=== PATIENT | female | born 1995 | race Caucasian/White ===

== ENCOUNTER 2017-07-24 06:46 | Emergency (ER) | payer SELFPAY ==
[2017-07-24] MEDS ORDERED: NA CHLORIDE 0.9% 1,000 ML ONE (07:31)
[2017-07-24 07:53] LABS: Absolute Lymphocytes (CBC) 1.6 K/uL (0.7-4.9); Absolute Monocytes 0.8 K/uL (0.1-1.3); Absolute Neutrophil 11.1 K/uL (1.8-8.0); Basophils % 0.4 % (0-1.3); Eosinophils % 0.2 % (0-4.4); Lymphocytes % 11.8 % (15.3-44.8); MCV 88.3 fL (80-100); MPV 8.2 fL (7.6-11.3); Monocytes % 6.1 % (3.3-12.3); RBC Red Blood Cell Count 4.65 M/uL (3.86-4.86)
[2017-07-24 08:30] LABS: Potassium 3.9 mEq/L (3.6-5.0)
[2017-07-24 08:36] LABS: Bilirubin Direct 0.1 mg/dL (0-0.2); Bilirubin Total 0.6 mg/dL (0.3-1.2); Protein, Total 7.4 g/dL (6.0-8.3)
[2017-07-24 08:38] LABS: Urine Blood NEGATIVE (NEG); Urine Glucose NEGATIVE (NEG); Urine Protein NEGATIVE (NEG); Urine Specific Gravity 1.025 (1.005-1.030)
[2017-07-24 09:13] LABS: Urine Bacteria <20 /HPF (<20); Urine Culture Reflex Order NOT NEEDED; Urine RBC NONE SEEN /HPF (NONE SEEN)
--- NOTE | 2017-07-24 09:21 | RAD REPORT ---
EXAM DESCRIPTION: CT - Stone Protocol - 07/24/2017 9:02 am CLINICAL HISTORY: Right flank pain, history of kidney stones COMPARISON: CT study December 2014 TECHNIQUE: Axial 5 mm thick images were obtained without oral or IV contrast. The [id number] span s the entirety of the system partially obscuring uppermost abdomen and lung bases. All CT scans are performed using dose optimization technique as appropriate and may include automated exposure control or mA/KV adjustment according to patient size. FINDINGS: Moderate hydronephrosis of the right side pelvis and calices is seen into the pelvis. The distal few cm of the right ureter show a more mild dilatation pattern. There is a 2-3 mm stone within the right UVJ as the source for obstruction. No calculi within the mostly contracted urinary bladder . No additional obstructing or nonobstructing calculi on the right. Fullness of the left renal pelvis is present as a baseline. No acute left-sided findings. No suspicious renal masses. Isodense masses and pyelonephritis are not excluded on a stone protocol CT scan. Imaged portions of the liver, spleen and pancreas show no suspicious findings on non-contrast imaging . No gallbladder or biliary tree abnormality identified. No significant adrenal finding. No suspicious bowel findings. No hernia, mass or bulky lymphadenopathy noted. No free air, free fluid or pneumatosis. Uterus and ov sandrita show no suspicious findings No significant bony abnormality. IMPRESSION: Moderate right-sided hydronephrosis secondary to a 2-3 mm calculus within the right UVJ. The stone is too small to obtain accurate attenuation value. Isodense masses and pyelonephritis are not excluded on stone protocol technique.
[2017-07-24] MEDS ORDERED: FENTANYL CITR 100 MCG/2 ML ONE (09:47)
[2017-07-24] MEDS ORDERED: NITROFURAN MACRO 100 MG CAP PO ONE (09:48)
[2017-07-24] MEDS ORDERED: TAMSULOSIN 0.4 MG SR CAP ONE (09:48)
--- NOTE | 2017-07-24 10:32 | EDPHYS ---
Physician Documentation [facility] Name: Melissa Iglesias Age: 22 yrs Sex: Female : 1995 Arrival Date: 07/24/2017 Time: 06:51 Bed 14 Private MD: ED Physician Valentin Medina HPI: 07/24 07:40 This 22 yrs old Female presents to ER via Ambulatory with complaints of Flank snw Pain. 07:40 The patient complains of pain in the right lower quadrant and right upper quadrant. The snw pain radiates to the left low back and left mid back. Onset: The symptoms/episode began/occurred suddenly, yesterday. Modifying factors: The symptoms are alleviated by nothing. Associated signs and symptoms: Pertinent positives: nausea, vomiting. Severity of pain: At its worst the pain was moderate. It is unknown whether or not the patient has had similar symptoms in the past. The patient has not recently seen a physician. 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 - Social history:: Smoking status: Patient uses tobacco products, smokes one-half pack cigarettes per day. - Ebola Screening: : No symptoms or risks identified at this time. ROS: 07:40 Constitutional: Negative for fever, chills, and weight loss, Eyes: Negative for injury, snw pain, redness, and discharge, ENT: Negative for injury, pain, and discharge, Neck: Negative for injury, pain, and swelling, Cardiovascular: Negative for chest pain, palpitations, and edema, Respiratory: Negative for shortness of breath, cough, wheezing, and pleuritic chest pain, Abdomen/GI: Negative for abdominal pain, nausea, vomiting, diarrhea, and constipation, right upper and lower quad tenderness Back: Negative for injury and pain, MS/Extremity: Negative for injury and deformity, Skin: Negative for injury, rash, and discoloration, Neuro: Negative for headache, weakness, numbness, tingling, and seizure. Exam: 07:22 Constitutional: This is a well developed, well nourished patient who is awake, alert, snw and in no acute distress. Head/Face: Normocephalic, atraumatic. Eyes: Pupils equal round and reactive to light, extra-ocular motions intact. Lids and lashes normal. Conjunctiva and sclera are non-icteric and not injected. Cornea within normal limits. Periorbital areas with no swelling, redness, or edema. ENT: Nares patent. No nasal discharge, no septal abnormalities noted. Tympanic membranes are normal and external auditory canals are clear. Oropharynx with no redness, swelling, or masses, exudates, or evidence of obstruction, uvula midline. Mucous membranes moist. Neck: Trachea midline, no thyromegaly or masses palpated, and no cervical lymphadenopathy. Supple, full range of motion without nuchal rigidity, or vertebral point tenderness. No Meningismus. Chest/axilla: Normal chest wall appearance and motion. Nontender with no deformity. No lesions are appreciated. Cardiovascular: Regular rate and rhythm with a normal S1 and S2. No gallops, murmurs, or rubs. Normal PMI, no JVD. No pulse deficits. Respiratory: Lungs have equal breath sounds bilaterally, clear to auscultation and percussion. No rales, rhonchi or wheezes noted. No increased work of breathing, no retractions or nasal flaring. Back: No spinal tenderness. No costovertebral tenderness. Full range of motion. Skin: Warm, dry with normal turgor. Normal color with no rashes, no lesions, and no evidence of cellulitis. MS/ Extremity: Pulses equal, no cyanosis. Neurovascular intact. Full, normal range of motion. Neuro: Awake and alert, GCS 15, oriented to person, place, time, and situation. Cranial nerves II-XII grossly intact. Motor strength 5/5 in all extremities. Sensory grossly intact. Cerebellar exam normal. Normal gait. Psych: Awake, alert, with orientation to person, place and time. Behavior, mood, and affect are within normal limits. 07:22 Abdomen/GI: Inspection: abdomen appears normal, Bowel sounds: normal, Palpation: moderate abdominal tenderness, in the right upper quadrant and right lower quadrant. Vital Signs: 07:02 BP 125 / 77; Pulse 88; Resp 16; Temp 98.2; Pulse Ox 97% on R/A; Weight 95.25 kg; Height aa1 5 ft. 4 in. (162.56 cm); Pain 8/10; 08:30 BP 110 / 68; Pulse 78; Resp 15; Temp 98.3; Pulse Ox 99% on R/A; Pain 7/10; ch 10:16 BP 102 / 58; Pulse 58; Resp 12; Temp 97; Pulse Ox 98% on R/A; Pain 3/10; ch 07:02 Body Mass Index 36.05 (95.25 kg, 162.56 cm) aa1 MDM: 06:58 Patient medically screened. snw 08:58 Data reviewed: vital signs, nurses notes. Data interpreted: Pulse oximetry: on room air snw is 99 %. Interpretation: normal. Counseling: I had a detailed discussion with the patient and/or guardian regarding: the historical points, exam findings, and any diagnostic results supporting the discharge/admit diagnosis, lab results, radiology results. 07/24 06:59 Order name: Urine Culture snw 07/24 06:59 Order name: Urine Microscopic Only; Complete Time: 09:17 snw 07/24 07:10 Order name: Basic Metabolic Panel; Complete Time: 08:40 snw 07/24 07:10 Order name: CBC with Diff; Complete Time: 07:58 snw 07/24 07:10 Order name: Hepatic Function; Complete Time: 08:40 snw 07/24 07:33 Order name: Urine Dipstick--Ancillary (enter results); Complete Time: 08:40 bd 07/24 06:59 Order name: Urine Test (obtain specimen); Complete Time: 08:09 snw 07/24 07:33 Order name: Urine --Ancillary (enter results); Complete Time: 08:40 bd 07/24 07:57 Order name: CT Stone Protocol; Complete Time: 09:27 snw 07/24 06:59 Order name: Urine Dipstick-Ancillary (obtain specimen); Complete Time: 08:09 snw 07/24 07:10 Order name: Labs collected and sent; Complete Time: 08:09 snw Administered Medications: 08:09 Drug: NS 0.9% 1000 ml Route: IV; Rate: 1 bolus; Site: left forearm; ch 08:40 Drug: TORadol 30 mg Route: IVP; Site: left forearm; ch 10:14 Follow up: Response: No adverse reaction; Pain is decreased ch 10:00 Drug: Flomax 0.4 mg Route: PO; ch 10:15 Follow up: Response: No adverse reaction ch 10:00 Drug: fentaNYL (PF) 25 mcg Route: IVP; Site: left forearm; ch 10:15 Follow up: Response: No adverse reaction; Marked relief of symptoms ch 10:00 Drug: Macrobid 100 mg Route: PO; ch 10:15 Follow up: Response: No adverse reaction; Marked relief of symptoms ch Disposition: 15:10 Co-signature as Attending Physician, Valentin Medina MD I agree with the assessment and heron plan of care. Disposition: 07/24/17 10:31 Discharged to Home. Impression: Hydronephrosis with renal and ureteral calculous obstruction. - Condition is Stable. - Discharge Instructions: Kidney Stones, Hydronephrosis, Dietary Guidelines to Help Prevent Kidney Stones. - Prescriptions for Zofran 4 mg Oral Tablet - take 1 tablet by ORAL route every 12 hours As needed; 20 tablet. Flomax 0.4 mg Oral Capsule, Sust. Release 24 hr - take 1 capsule by ORAL route once daily 1/2 hour following the same meal each day; 30 capsule. Diclofenac Sodium 75 mg Oral Tablet Sustained Release - take 1 tablet by ORAL route 2 times per day; 30 tablet. Macrobid 100 mg Oral Capsule - take 1 capsule by ORAL route every 12 hours for 10 days; 20 capsule. - Work release form, Medication Reconciliation Form, Thank You Letter, Antibiotic Education, Prescription Opioid Use form. - Follow up: Private Physician; When: 2 - 3 days; Reason: Recheck today's complaints, Continuance of care, Re-evaluation by your physician. Follow up: Emergency Department; When: As needed; Reason: Worsening of condition. Signatures: Dispatcher [employer] EDMS Jess Roy RN RN ch Kern, Alissa, RN RN aa1 Valentin Medina MD MD cha Therrien, Shelly, FUR DRESSING SUPERVISOR-C FUR DRESSING SUPERVISOR-Csnw Corrections: (The following items were deleted from the chart) 11:01 10:31 07/24/2017 10:31 Discharged to Home. Impression: Hydronephrosis with renal and ch ureteral calculous obstruction. Condition is Stable. Forms are Medication Reconciliation Form, Thank You Letter, Antibiotic Education, Prescription Opioid Use. Follow up: Private Physician; When: 2 - 3 days; Reason: Recheck today's complaints, Continuance of care, Re-evaluation by your physician. Follow up: Emergency Department; When: As needed; Reason: Worsening of condition. ty
--- NOTE | 2017-07-24 10:32 | ER ---
Nurse's Notes [facility] Name: Melissa Iglesias Age: 22 yrs Sex: Female : 1995 Arrival Date: 07/24/2017 Time: 06:51 Bed 14 Private MD: Diagnosis: Hydronephrosis with renal and ureteral calculous obstruction Presentation: 07/24 07:02 Presenting complaint: Patient states: R flank pain and N/V since 1245 yesterday. aa1 Transition of care: patient was not received from another setting of care. Onset of symptoms was July 23, 2017 at 12:45. Risk Assessment: Do you want to hurt yourself or someone else? Patient reports no desire to harm self or others. Initial Sepsis Screen: Does the patient meet any 2 criteria? No. Patient's initial sepsis screen is negative. Does the patient have a suspected source of infection? Yes: Acute abdominal pain. Care prior to arrival: None. 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 - Social history:: Smoking status: Patient uses tobacco products, smokes one-half pack cigarettes per day. - Ebola Screening: : No symptoms or risks identified at this time. Screenin:30 Abuse screen: Denies threats or abuse. Denies injuries from another. Nutritional ch screening: No deficits noted. Tuberculosis screening: No symptoms or risk factors identified. Fall Risk None identified. Assessment: 08:20 General: Appears in no apparent distress. comfortable, Behavior is calm, cooperative, ch appropriate for age. Pain: Complains of pain in left mid back Pain currently is 8 out of 10 on a pain scale. Pain began suddenly. 08:20 Neuro: No deficits noted. Respiratory: Airway is patent Respiratory effort is even, ch unlabored, Breath sounds are clear bilaterally. GI: Reports nausea. : Reports pain in left flank(s), in lower back urinary frequency. EENT: No signs and/or symptoms were reported regarding the EENT system. Derm: Skin is pink, warm \T\ dry. 10:16 Reassessment: Patient appears in no apparent distress at this time. Patient and/or ch family updated on plan of care and expected duration. Pain level reassessed. Patient is alert, oriented x 3, equal unlabored respirations, skin warm/dry/pink. Patient states feeling better. Patient states symptoms have improved. Vital Signs: 07:02 BP 125 / 77; Pulse 88; Resp 16; Temp 98.2; Pulse Ox 97% on R/A; Weight 95.25 kg; Height aa1 5 ft. 4 in. (162.56 cm); Pain 8/10; 08:30 BP 110 / 68; Pulse 78; Resp 15; Temp 98.3; Pulse Ox 99% on R/A; Pain 7/10; ch 10:16 BP 102 / 58; Pulse 58; Resp 12; Temp 97; Pulse Ox 98% on R/A; Pain 3/10; ch 07:02 Body Mass Index 36.05 (95.25 kg, 162.56 cm) aa1 ED Course: 06:51 Patient arrived in ED. es 06:58 Hali Tirado FNP-C is PHCP. snw 06:58 Valentin Medina MD is Attending Physician. snw 07:00 Jess Roy, DORA is Primary Nurse. ch 07:02 Triage completed. aa1 07:02 Arm band placed on right wrist. Patient placed in an exam room, on a stretcher. aa1 08:00 No apparent distress. Resting quietly. ch 08:00 No provider procedures requiring assistance completed. Inserted saline lock: 20 gauge ch in left forearm, using aseptic technique. Blood collected. 08:15 Radiology exam delayed due to test not completed at this time. cw1 08:30 Patient has correct armband on for positive identification. Placed in gown. Bed in low ch position. Call light in reach. Side rails up X 1. Pulse ox on. NIBP on. Warm blanket given. 09:01 CT completed. Patient tolerated procedure well. Patient moved to CT via wheelchair. sj Patient moved back from CT. 09:01 CT Stone Protocol In Process Unspecified. EDMS 10:30 IV discontinued, intact, bleeding controlled, No redness/swelling at site. Pressure ch dressing applied. Administered Medications: 08:09 Drug: NS 0.9% 1000 ml Route: IV; Rate: 1 bolus; Site: left forearm; ch 08:40 Drug: TORadol 30 mg Route: IVP; Site: left forearm; ch 10:14 Follow up: Response: No adverse reaction; Pain is decreased ch 10:00 Drug: Flomax 0.4 mg Route: PO; ch 10:15 Follow up: Response: No adverse reaction ch 10:00 Drug: fentaNYL (PF) 25 mcg Route: IVP; Site: left forearm; ch 10:15 Follow up: Response: No adverse reaction; Marked relief of symptoms ch 10:00 Drug: Macrobid 100 mg Route: PO; ch 10:15 Follow up: Response: No adverse reaction; Marked relief of symptoms Outcome: 10:31 Discharge ordered by . snw 10:50 Discharged to home ambulatory, with family. 10:50 Condition: improved 10:50 Discharge instructions given to patient, family, Instructed on discharge instructions, follow up and referral plans. medication usage, Demonstrated understanding of instructions, follow-up care, medications, Prescriptions given X 4. 11:01 Patient left the ED. Signatures: Dispatcher [employer] Jess Putnam, RN RN Yanelis Salgado RN RN aa1 Hali Tirado, HAND SIZER-C HAND SIZER-Csnw Davina Kinsey Susan sj Woodley, Crystal 1
[2017-07-24 11:08] VITALS: BP 102/58; TEMP 97; O2SAT 98
== END 2017-07-24 11:01 | disposition home or self-care (01) ==
LOC: ER 06:46
DX: N13.2 Hydronephrosis with renal and ureteral calculous obstruction (principal); F17.210 Nicotine dependence, cigarettes, uncomplicated; Z88.0 Allergy status to penicillin
CPT/HCPCS: 36415; 74176; 76377; 80048; 80076; 81003; 81015; 81025; 85025; 87086; 87088; 96374; 96375; 99284; J3010; J7030

== ENCOUNTER 2018-01-12 09:18 | Emergency (ER) | payer SELFPAY ==
--- NOTE | 2018-01-12 11:01 | RAD REPORT ---
EXAM DESCRIPTION: US - Transvaginal OB - 01/12/2018 10:32 am CLINICAL HISTORY: fall/trama;Abd pain;Abd cramping, ;Vaginal bleeding COMPARISON: OBSTETRICAL COMPLETE dated 12/23/2013 FINDINGS: A single gestational sac is seen within the uterus. The shape of the sac is within normal limits for gestational age. Within the sac is a single pole with crown-rump length of 7.1 cm, c orrelating to estimated gestational age of 13 weeks 2 days. Estimated date of delivery is 07/18/2018. Heart rate is 163 BPM.. The placenta is not yet developed due to early gestational age. The maternal adnexa are within normal limits. Both ovaries were obscured by bowel gas. IMPRESSION: Single live early intrauterine gestation with estimated gestational age of 13 weeks 2 da ys, MAME 07/18/2018. No acute abnormality is detected.
--- NOTE | 2018-01-12 11:36 | EDPHYS ---
Physician Documentation [facility] Name: Melissa Iglesias Age: 22 yrs Sex: Female : 1995 Arrival Date: 01/12/2018 Time: 09:22 Bed 24 Private MD: None, None ED Physician Valentin Medina HPI: 01/12 10:46 This 22 yrs old Female presents to ER via Ambulatory with complaints of Fall jr8 Injury, 11 wks , Vaginal Bleeding, Abdominal Cramping. 10:46 Onset: The symptoms/episode began/occurred acutely, last night. Associated injuries: jr8 The patient sustained injury to the abdomen. Severity of symptoms: At their worst the symptoms were moderate, in the emergency department the symptoms are unchanged. The patient has not experienced similar symptoms in the past. The patient has not recently seen a physician. Patient stated that she had to work last night for [employer]. Had fallen onto TV and then was "dog piled" on. Patient . Stated that she had vaginal spotting and cramping this AM. MUSEUM GUIDE: 09:35 LMP 11/17/2017 aa5 Historical: - Allergies: 09:35 PENICILLINS; aa5 - PMHx: 09:35 Anemia; aa5 - PSHx: 09:35 None; aa5 - Immunization history:: Adult Immunizations up to date. - Social history:: Smoking status: Patient/guardian denies using tobacco. - Ebola Screening: : No symptoms or risks identified at this time. ROS: 10:46 Eyes: Negative for injury, pain, redness, and discharge, ENT: Negative for injury, jr8 pain, and discharge, Neck: Negative for injury, pain, and swelling, Cardiovascular: Negative for chest pain, palpitations, and edema, Respiratory: Negative for shortness of breath, cough, wheezing, and pleuritic chest pain, Back: Negative for injury and pain, MS/Extremity: Negative for injury and deformity, Skin: Negative for injury, rash, and discoloration, Neuro: Negative for headache, weakness, numbness, tingling, and seizure. 10:46 Abdomen/GI: Positive for abdominal cramps, Negative for nausea, vomiting, and diarrhea, hematemesis, black/tarry stool, rectal pain, rectal bleeding, bowel incontinence, flatulence. 10:46 : Positive for vaginal bleeding. Exam: 10:46 Eyes: Pupils equal round and reactive to light, extra-ocular motions intact. Lids and jr8 lashes normal. Conjunctiva and sclera are non-icteric and not injected. Cornea within normal limits. Periorbital areas with no swelling, redness, or edema. ENT: Nares patent. No nasal discharge, no septal abnormalities noted. Tympanic membranes are normal and external auditory canals are clear. Oropharynx with no redness, swelling, or masses, exudates, or evidence of obstruction, uvula midline. Mucous membranes moist. Neck: Trachea midline, no thyromegaly or masses palpated, and no cervical lymphadenopathy. Supple, full range of motion without nuchal rigidity, or vertebral point tenderness. No Meningismus. Cardiovascular: Regular rate and rhythm with a normal S1 and S2. No gallops, murmurs, or rubs. Normal PMI, no JVD. No pulse deficits. Respiratory: Lungs have equal breath sounds bilaterally, clear to auscultation and percussion. No rales, rhonchi or wheezes noted. No increased work of breathing, no retractions or nasal flaring. Abdomen/GI: Soft, non-tender, with normal bowel sounds. No distension or tympany. No guarding or rebound. No evidence of tenderness throughout. Back: No spinal tenderness. No costovertebral tenderness. Full range of motion. Skin: Warm, dry with normal turgor. Normal color with no rashes, no lesions, and no evidence of cellulitis. MS/ Extremity: Pulses equal, no cyanosis. Neurovascular intact. Full, normal range of motion. Neuro: Awake and alert, GCS 15, oriented to person, place, time, and situation. Cranial nerves II-XII grossly intact. Motor strength 5/5 in all extremities. Sensory grossly intact. Cerebellar exam normal. Normal gait. Vital Signs: 09:35 BP 108 / 72; Pulse 104; Resp 16 S; Temp 98.2(TE); Pulse Ox 98% on R/A; Weight 97.52 kg aa5 (R); Height 5 ft. 4 in. (162.56 cm) (R); Pain 6/10; 09:35 Body Mass Index 36.90 (97.52 kg, 162.56 cm) aa5 MDM: 09:47 Patient medically screened. jr8 11:35 Data reviewed: vital signs, nurses notes, lab test result(s), radiologic studies, jr8 ultrasound. Data interpreted: Pulse oximetry: on room air is 98 %. Interpretation: normal. Counseling: I had a detailed discussion with the patient and/or guardian regarding: the historical points, exam findings, and any diagnostic results supporting the discharge/admit diagnosis, lab results, radiology results, the need for outpatient follow up, an OB/Gyne specialist, to return to the emergency department if symptoms worsen or persist or if there are any questions or concerns that arise at home. 01/12 10:05 Order name: Abo/rh Typing; Complete Time: 11:35 [facility] 01/12 10:10 Order name: Urine Dipstick--Ancillary (enter results) eb 01/12 10:05 Order name: Urine Test (obtain specimen); Complete Time: 10:07 [facility] 01/12 10:05 Order name: Urine Dipstick-Ancillary (obtain specimen); Complete Time: 10:07 [facility] 01/12 10:05 Order name: US Transvaginal Ob; Complete Time: 11:03 [facility] 01/12 10:10 Order name: Urine --Ancillary (enter results) eb Administered Medications: No medications were administered Disposition: 01/12/18 11:35 Discharged to Home. Impression: Threatened . - Condition is Stable. - Discharge Instructions: Threatened Miscarriage, Pelvic Rest. - Medication Reconciliation Form, Thank You Letter, Antibiotic Education, Prescription Opioid Use form. - Follow up: Private Physician; When: 2 - 3 days; Reason: Recheck today's complaints, Continuance of care, Re-evaluation by your physician. - Problem is new. - Symptoms have improved. Addendum: 01/15/2018 08:08 Co-signature as Attending Physician, Valentin Medina MD I agree with the assessment and c dey plan of care. Signatures: Dispatcher [employer] [facility] Valentin Medina MD MD cha Calderon, Audri, RN RN aa5 Siobhan Paula RN RN ss Roszak, Josh, PA PA jr8 Corrections: (The following items were deleted from the chart) 01/12 11:54 11:35 01/12/2018 11:35 Discharged to Home. Impression: Threatened . Condition ss is Stable. Forms are Medication Reconciliation Form, Thank You Letter, Antibiotic Education, Prescription Opioid Use. Follow up: Private Physician; When: 2 - 3 days; Reason: Recheck today's complaints, Continuance of care, Re-evaluation by your physician. Problem is new. Symptoms have improved. jr8
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
[2018-01-12 12:04] VITALS: BP 108/72; TEMP 98.2; O2SAT 98
[2018-01-12 12:29] LABS: Urine Blood NEGATIVE (NEG); Urine Glucose NEGATIVE (NEG); Urine Protein NEGATIVE (NEG); Urine pH 7.5 (5.0-7.0)
== END 2018-01-12 11:54 | disposition home or self-care (01) ==
LOC: ER 09:18
DX: O20.0 Threatened abortion (principal); Z3A.11 11 weeks gestation of pregnancy; W18.39XA Other fall on same level, initial encounter; Y93.89 Activity, other specified; Y92.9 Unspecified place or not applicable; Y99.8 Other external cause status; Z88.0 Allergy status to penicillin
CPT/HCPCS: 76817; 81003; 81025; 86900; 86901; 99283

== ENCOUNTER 2018-06-19 17:31 | Emergency (ER) | payer SELFPAY ==
--- OUTSIDE RECORDS SUMMARY | 2018-06-19 17:32 | XMS REPORT ---
:1995 [facility] Address [address] [place] [address] Dr. Delarosa [address] [place] [id number] Care Team Providers Name Role Phone Unavailable Unavailable Unavailable Problems This patient has no known problems. Allergies, Adverse Reactions, Alerts This patient has no known allergies or adverse reactions. Medications This patient has no known medications.
[2018-06-19] MEDS ORDERED: predniSONE 20 MG TAB ONE (18:29)
[2018-06-19] MEDS ORDERED: FAMOTIDINE 20 MG TAB ONE (18:29)
--- NOTE | 2018-06-19 19:54 | EDPHYS ---
Physician Documentation [facility] Name: Melissa Iglesias Age: 22 yrs Sex: Female : 1995 Arrival Date: 06/19/2018 Time: 17:32 Bed 26 Private MD: ED Physician Mathew Costa HPI: 06/19 19:44 This 22 yrs old Female presents to ER via Ambulatory with complaints of gs Allergic Reaction. 19:44 The patient presents with rash, that is diffuse. Onset: The symptoms/episode gs began/occurred acutely, yesterday. Associated signs and symptoms: Pertinent positives: rash, Pertinent negatives: shortness of breath. Possible causes: The patient has no known obvious cause for the symptoms. At home the patient or guardian has treated the symptoms with Benadryl. Severity of symptoms: At their worst the symptoms were moderate in the emergency department the symptoms are unchanged. The patient has not experienced similar symptoms in the past. The patient has not recently seen a physician. 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 - Social history:: Smoking status: Smoking status: Patient uses tobacco products, 2 or 3 cigarettes a day. - Ebola Screening: : Patient denies travel to an Ebola-affected area in the 21 days before illness onset. ROS: 19:44 All other systems are negative. gs Exam: 19:44 Eyes: Pupils equal round and reactive to light, extra-ocular motions intact. Lids and gs lashes normal. Conjunctiva and sclera are non-icteric and not injected. Cornea within normal limits. Periorbital areas with no swelling, redness, or edema. ENT: Nares patent. No nasal discharge, no septal abnormalities noted. Tympanic membranes are normal and external auditory canals are clear. Oropharynx with no redness, swelling, or masses, exudates, or evidence of obstruction, uvula midline. Mucous membranes moist. Neck: Trachea midline, no thyromegaly or masses palpated, and no cervical lymphadenopathy. Supple, full range of motion without nuchal rigidity, or vertebral point tenderness. No Meningismus. Chest/axilla: Normal chest wall appearance and motion. Nontender with no deformity. No lesions are appreciated. Cardiovascular: Regular rate and rhythm with a normal S1 and S2. No gallops, murmurs, or rubs. Normal PMI, no JVD. No pulse deficits. Respiratory: Lungs have equal breath sounds bilaterally, clear to auscultation and percussion. No rales, rhonchi or wheezes noted. No increased work of breathing, no retractions or nasal flaring. Abdomen/GI: Soft, non-tender, with normal bowel sounds. No distension or tympany. No guarding or rebound. No evidence of tenderness throughout. Back: No spinal tenderness. No costovertebral tenderness. Full range of motion. MS/ Extremity: Pulses equal, no cyanosis. Neurovascular intact. Full, normal range of motion. Neuro: Awake and alert, GCS 15, oriented to person, place, time, and situation. Cranial nerves II-XII grossly intact. Motor strength 5/5 in all extremities. Sensory grossly intact. Cerebellar exam normal. Normal gait. 19:44 Constitutional: The patient appears alert, awake. 19:44 Head/face: Noted is rash, that is erythematous. 19:44 Abdomen/GI: Inspection: gravid appearance, is noted. 19:44 Skin: and is diffusely located, some looks like urticaria on extremities and abdomen , around eyes more like contact dermatitis. Vital Signs: 17:40 Pulse 105; Resp 18; Temp 97.9; Pulse Ox 97% on R/A; Weight 98.43 kg (R); Height 5 ft. 4 tw2 in. (162.56 cm) (R); Pain 6/10; 17:42 BP 105 / 83; tw2 18:45 BP 104 / 71; Pulse 97; Resp 17 S; Pulse Ox 96% on R/A; rv 20:07 BP 112 / 81; Pulse 87; Resp 18; Pulse Ox 96% ; rv 17:40 Body Mass Index 37.25 (98.43 kg, 162.56 cm) tw2 MDM: 18:09 Patient medically screened. gs 19:44 Differential diagnosis: urticaria, contact dermatitis. Data reviewed: vital signs, gs nurses notes. Counseling: I had a detailed discussion with the patient and/or guardian regarding: the historical points, exam findings, and any diagnostic results supporting the discharge/admit diagnosis, the need for outpatient follow up. Response to treatment: the patient's symptoms have mildly improved after treatment. Administered Medications: 18:19 Drug: predniSONE 40 mg Route: PO; aj1 20: Follow up: Response: Marked relief of symptoms rv 18:19 Drug: Pepcid 20 mg Route: PO; aj1 20:08 Follow up: Response: Marked relief of symptoms rv Disposition: 06/19/18 19:53 Discharged to Home. Impression: Urticaria, unspecified, Dermatitis, unspecified. - Condition is Stable. - Discharge Instructions: Rash. - Prescriptions for Prednisone 20 mg Oral Tablet - take 1 tablet by ORAL route once daily for 5 days; 5 tablet. - Medication Reconciliation Form, Thank You Letter, Antibiotic Education, Prescription Opioid Use form. - Follow up: Private Physician; When: 2 - 3 days; Reason: Re-evaluation by your physician. Signatures: Francesca Estevez RN RN aj1 Desirae Shelley RN RN tw2 Mathew Costa MD MD Kelechi Meeks RN RN rv Corrections: (The following items were deleted from the chart) 19:53 19:53 06/19/2018 19:53 Discharged to Home. Impression: Urticaria, unspecified. gs Condition is Stable. Forms are Medication Reconciliation Form, Thank You Letter, Antibiotic Education, Prescription Opioid Use. Follow up: Private Physician; When: 2 - 3 days; Reason: Re-evaluation by your physician. 20:09 19:53 06/19/2018 19:53 Discharged to Home. Impression: Urticaria, unspecified; rv Dermatitis, unspecified. Condition is Stable. Forms are Medication Reconciliation Form, Thank You Letter, Antibiotic Education, Prescription Opioid Use. Follow up: Private Physician; When: 2 - 3 days; Reason: Re-evaluation by your physician.
--- NOTE | 2018-06-19 19:54 | ER ---
Nurse's Notes [facility] Name: Melissa Iglesias Age: 22 yrs Sex: Female : 1995 Arrival Date: 06/19/2018 Time: 17:32 Bed 26 Private MD: Diagnosis: Urticaria, unspecified;Dermatitis, unspecified Presentation: 06/19 17:38 Presenting complaint: Patient states: i am having an allergic reaction that started on tw2 my face 2 days ago, and i have been taking benadryl, now it spread to my arm under my boobs, legs, i dont think i got into poison ly. Transition of care: patient was not received from another setting of care. Onset: The symptoms/episode began/occurred acutely. Anaphylaxis evaluation, the patient reports or I have noted the following symptoms which indicate a significant risk of anaphylaxis: shortness of breath. Onset of symptoms was June 17, 2018. Risk Assessment: Do you want to hurt yourself or someone else? Patient reports no desire to harm self or others. Initial Sepsis Screen: Does the patient meet any 2 criteria? No. Patient's initial sepsis screen is negative. Does the patient have a suspected source of infection? No. Patient's initial sepsis screen is negative. Care prior to arrival: None. 17:38 Method Of Arrival: Ambulatory tw2 17:38 Acuity: RICH 3 tw2 17:40 Presenting complaint: "i am , 37 weeks". tw2 Triage Assessment: 17:41 General: Appears in no apparent distress. Behavior is calm, cooperative, appropriate tw2 for age. Pain: Complains of pain in face. Derm: Rash noted that is itchy, red, raised. 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 - Social history:: Smoking status: Smoking status: Patient uses tobacco products, 2 or 3 cigarettes a day. - Ebola Screening: : Patient denies travel to an Ebola-affected area in the 21 days before illness onset. Screenin:51 Abuse screen: Denies threats or abuse. Denies injuries from another. Nutritional aj1 screening: No deficits noted. Tuberculosis screening: No symptoms or risk factors identified. 20:09 Fall Risk None identified. rv Assessment: 17:51 General: Appears in no apparent distress. comfortable, Behavior is calm, cooperative, aj1 appropriate for age. Neuro: Level of Consciousness is awake, alert, obeys commands, Oriented to person, place, time, situation. Cardiovascular: Patient's skin is warm and dry. Respiratory: Airway is patent Respiratory effort is even, unlabored, Respiratory pattern is regular, symmetrical, Breath sounds are clear bilaterally. GI: No signs and/or symptoms were reported involving the gastrointestinal system. : No signs and/or symptoms were reported regarding the genitourinary system. EENT: No signs and/or symptoms were reported regarding the EENT system. Derm: Rash noted that is red, on right eye and left eye. Musculoskeletal: No signs and/or symptoms reported regarding the musculoskeletal system. Circulation, motion, and sensation intact. Vital Signs: 17:40 Pulse 105; Resp 18; Temp 97.9; Pulse Ox 97% on R/A; Weight 98.43 kg (R); Height 5 ft. 4 tw2 in. (162.56 cm) (R); Pain 6/10; 17:42 BP 105 / 83; tw2 18:45 BP 104 / 71; Pulse 97; Resp 17 S; Pulse Ox 96% on R/A; rv 20:07 BP 112 / 81; Pulse 87; Resp 18; Pulse Ox 96% ; rv 17:40 Body Mass Index 37.25 (98.43 kg, 162.56 cm) tw2 ED Course: 17:32 Patient arrived in ED. rg4 17:40 Triage completed. tw2 17:41 Arm band placed on. tw2 17:48 Francesca Estevez, DORA is Primary Nurse. aj1 17:50 Mathew Costa MD is Attending Physician. gs 17:51 Patient has correct armband on for positive identification. aj1 17:51 No provider procedures requiring assistance completed. aj1 20:08 Patient did not have IV access during this emergency room visit. rv Administered Medications: 18:19 Drug: predniSONE 40 mg Route: PO; aj1 20:08 Follow up: Response: Marked relief of symptoms rv 18:19 Drug: Pepcid 20 mg Route: PO; aj1 20:08 Follow up: Response: Marked relief of symptoms rv Outcome: 19:53 Discharge ordered by . maurice 20:08 Discharged to home ambulatory. rv 20:08 Condition: improved 20:08 Discharge instructions given to patient, Instructed on discharge instructions, follow up and referral plans. medication usage, Demonstrated understanding of instructions, follow-up care, medications, Prescriptions given X 1. 20:09 Patient left the ED. rv Signatures: Francesca Estevez RN RN aj1 Desirae Shelley RN RN tw2 Amy Krishnan rg4 Mathew Costa MD MD gs Vicente, Ronaldo, RN RN rv
[2018-06-19 20:31] VITALS: TEMP 97.9
[2018-06-19 20:32] VITALS: O2SAT 96
[2018-06-19 20:34] VITALS: BP 112/81
== END 2018-06-19 20:09 | disposition home or self-care (01) ==
LOC: ER 17:31
DX: L30.9 Dermatitis, unspecified (principal); L50.9 Urticaria, unspecified; Z72.0 Tobacco use; Z88.0 Allergy status to penicillin
CPT/HCPCS: J7512

== ENCOUNTER 2018-07-16 03:20 | Inpatient (IN) | payer OTHER ==
--- OUTSIDE RECORDS SUMMARY | 2018-07-16 03:22 | XMS REPORT ---
:1995 [facility] Address [address] [place] [address] Dr. Delarosa [address] [place] [address] Care Team Providers Name Role Phone Unavailable Unavailable Unavailable Problems This patient has no known problems. Allergies, Adverse Reactions, Alerts This patient has no known allergies or adverse reactions. Medications This patient has no known medications.
[2018-07-16] MEDS ORDERED: PROMETHAZINE 25 MG/ML VIAL IM PRN (03:46)
[2018-07-16] MEDS ORDERED: BUTORPHANOL 1 MG/ML INJ IV PRN (03:46)
[2018-07-16] MEDS ORDERED: MEPERIDINE HCL 25 MG/0.5 ML IV PRN (03:46)
[2018-07-16] MEDS ORDERED: CARBOPROST TROME 250 MCG/ML IM PRN (03:46)
[2018-07-16] MEDS ORDERED: MIDAZOLAM HCL 2 MG/2 ML INJ IV PRN (03:46)
[2018-07-16] MEDS ORDERED: Ringers Lactate 1,000 ML IV PRN (03:46)
[2018-07-16] MEDS ORDERED: METHYLERGONOVINE 0.2MG/ML AMP IM PRN (03:46)
[2018-07-16] MEDS ORDERED: CLINDAMYCIN INJ 600 MG in NA CHLORIDE 0.9% 50 ML IV ONE (03:49)
[2018-07-16] MEDS ORDERED: CLINDAMYCIN 600MG/D5W 600 MG/50 ML BAG IV ONE (03:50)
[2018-07-16] MEDS ORDERED: Ringers Lactate 1,000 ML IV ONE (03:50)
[2018-07-16] MEDS ORDERED: Ringers Lactate 1,000 ML IV SCH (04:00)
[2018-07-16 04:26] LABS: RPR Titer ND
[2018-07-16 04:35] LABS: Absolute Lymphocytes (CBC) 2.4 K/uL (0.7-4.9); Absolute Monocytes 0.6 K/uL (0.1-1.3); Absolute Neutrophil 6.2 K/uL (1.8-8.0); Basophils % 0.5 % (0-1.3); Eosinophils % 0.9 % (0-4.4); Lymphocytes % 25.9 % (15.3-44.8); MPV 8.4 fL (7.6-11.3); Monocytes % 6.1 % (3.3-12.3); RBC Red Blood Cell Count 3.97 M/uL (3.86-4.86)
[2018-07-16] MEDS ORDERED: ACETAMINOPHEN 500 MG TAB PO PRN (05:45)
[2018-07-16] MEDS ORDERED: IBUPROFEN 200 MG TAB PO PRN (05:45)
[2018-07-16] MEDS ORDERED: DIPHENHYDRAMINE 25 MG TAB/CAP PO PRN (05:45)
[2018-07-16] MEDS ORDERED: BISACODYL 10 MG RECTAL SUPP RECT PRN (05:45)
[2018-07-16] MEDS ORDERED: DOCUSATE NA/SENNA CONC 1 TAB PO PRN (05:45)
[2018-07-16] MEDS ORDERED: Oxycodone HCl/Acetaminophen 1 TAB TAB PO PRN ×2 (05:45)
[2018-07-16] MEDS ORDERED: OXYTOCIN/LR 20 UNITS/1,000 ML BAG IV SCH (06:00)
[2018-07-16 07:23] VITALS: BMI 37.0
[2018-07-16 20:22] LABS: RPR (Rapid Plasma Reagin) NON-REACT (NON-REACT)
--- NOTE | 2018-07-17 07:24 | DS ---
Hospital Course: Melissa Iglesias, 22-year-old, 3, para 2, [facility] patient followed antepartum wi thout complications. Admitted to our institution at 39 weeks in active rapidly advancing labor. Bet a strep status unknown. The patient allergic to penicillin. Therefore was given 1 dose of Cleocin, went rapidly to complete. Delivery of a 8 pound, 7 ounce male , Apgars 7 and 9. Nuchal cord x 1. No episiotomy. No laceration. Schultze delivery of the placenta. Estimated blood loss 300 cc o r less. afebrile. Ambulating and voiding. Lochia is normal. She is immune to Rubella. Will be offered Tdap immunization. Final Diagnoses: Term intrauterine 39 weeks. Drop-in delivery from [facility]. Tdap offered. LILA/YONY Voice ID: [id number] Report ID: [id number]
--- NOTE | 2018-07-17 07:54 | PREOPHP ---
Date of Admission: 07/16/2018 A 22-year-old 3, para 2, 39 weeks. The patient is followed by [facility] without apparent complica tions. Drop-in, advanced labor, ruptured membranes at home, clear fluid according to the patient. N o records available. Physical Examination: Normal. Vital Signs: Stable. HEENT: Clear. Pupils equal, round, and reactive to light and accommodation. Conjunctivae well perf used. No oral, lingual, or buccal lesions. Chest and Lungs: Clear. Breasts: Not examined. Abdomen: Term size. Extremities: Clear without edema, cyanosis, or clubbing. Pelvic: Approximately 8-9 cm on admission. Anticipated vaginal delivery. LILA/YONY Voice ID: [id number]
--- NOTE | 2018-07-17 07:54 | PREOPHP ---
Date of Admission: 07/16/2018 A 22-year-old multiparous female, followed by [facility]. No lab available at this time. Thought to have negative beta Strep screen, but as stated no lab available. Came in complete and on the perineum. P ut in delivery room, IV started. The physical is basically clear. Delivery pending. LILA/YONY Voice ID: [id number]
--- NOTE | 2018-07-17 07:54 | OP ---
Surgeon: Francisco Irving MD A 22-year-old multiparous female, followed antepartum by [facility] apparently without complications. Drop -in patient. Came in complete and on the perineum. Subsequently delivered uneventfully of a term fe male in the 6-1/2- to-7-pound range, Apgars 9 and 9. No episiotomy. No laceration. Luis ladd of the placenta, which was inspected and noted to be intact and normal. No lacerations. Estimate d blood loss 300 cc or less. Tolerated all procedures well. Final Diagnoses: Term intrauterine , 39 weeks according to the patient. No record s. Drop-in delivery. Spontaneous vaginal delivery of a term female. No complications. LILA/YONY Voice ID: [id number] Report ID: [id number]
--- NOTE | 2018-07-17 07:57 | DN ---
Surgeon: Francisco Irving MD A 22-year-old 3, para 2, followed antepartum with the [facility], without apparent complications. 3 9 weeks, drop-in, 8-9 cm on admission. Was given Cleocin as she did not know her beta strep status. Went to complete, short second stage, spontaneous precipitous, but controlled vaginal delivery of an estimated 7-pound male, nuchal cord x1. Apgars 8 and 9. No episiotomy. No laceration. Luis good eliromely of the placenta. 300 cc or less blood loss. Placenta inspected, noted to be intact and norm al. Drop-in labs pending. Final Diagnoses: Term intrauterine at 39 weeks. Cleocin for prophylaxis. Unknown beta st rep status. LILA/YONY Voice ID: [id number] Report ID: [id number]
[2018-07-17 08:20] VITALS: BP 118/74; TEMP 96.5
[2018-07-19 11:30] LABS: HBsAG Nonreactive (Nonreactive)
== END 2018-07-17 09:50 | disposition home or self-care (01) | DRG 807 ==
LOC: L&D 03:20 → 2ND-WC 03:40
PROVIDERS: ADMIT Specialist; ATTEND Specialist
PROC: 10E0XZZ Delivery of Products of Conception, External Approach (ICD-10-PCS; principal; 2018-07-16)
DX: O69.81X0 Labor and delivery complicated by cord around neck, without compression, not applicable or unspecified (principal); Z37.0 Single live birth; O62.3 Precipitate labor; Z3A.39 39 weeks gestation of pregnancy
CPT/HCPCS: 36415; 85025; 86592; 86901; 87340; G0433; J0595

== ENCOUNTER 2019-07-19 04:02 | Inpatient (IN) | payer OTHER ==
--- OUTSIDE RECORDS SUMMARY | 2019-07-19 04:04 | XMS REPORT ---
:1995 Author Organization [facility] t Address [address] [place] [address] Dr. Delarosa [address] [place] [address] Care Team Providers Name Role Phone Unavailable Unavailable Unavailable Problems This patient has no known problems. Allergies, Adverse Reactions, Alerts This patient has no known allergies or adverse reactions. Medications This patient has no known medications. Procedures This patient has no known procedures. Results This patient has no known results.
[2019-07-19] MEDS ORDERED: METHYLERGONOVINE 0.2MG/ML AMP IM PRN (04:32)
[2019-07-19] MEDS ORDERED: CARBOPROST TROME 250 MCG/ML IM PRN (04:32)
[2019-07-19] MEDS ORDERED: PROMETHAZINE INJ 25 MG/ML AMP IM PRN (04:32)
[2019-07-19] MEDS ORDERED: BUTORPHANOL 1 MG/ML INJ IV PRN (04:32)
[2019-07-19] MEDS ORDERED: Ringers Lactate 1,000 ML IV PRN (04:32)
[2019-07-19 04:45] VITALS: BMI 38.4
[2019-07-19] MEDS ORDERED: OXYTOCIN/LR 20 UNITS/1,000 ML BAG IV SCH (05:00)
[2019-07-19] MEDS ORDERED: Ringers Lactate 1,000 ML IV SCH (05:00)
[2019-07-19 05:15] LABS: Absolute Lymphocytes (CBC) 3.1 K/uL (0.7-4.9); Basophils % 0.3 % (0-1.3); Hematocrit 30.8 % (36.0-45.0); Lymphocytes % 24.5 % (15.3-44.8); MPV 7.7 fL (7.6-11.3); RBC Red Blood Cell Count 3.68 M/uL (3.86-4.86)
[2019-07-19 05:24] LABS: Urine Appearance CLOUDY; Urine Bilirubin NEGATIVE (NEG); Urine Blood NEGATIVE (NEG); Urine Color YELLOW; Urine Glucose NEGATIVE (NEG); Urine Protein NEGATIVE (NEG); Urine Urobilinogen 0.2 mg/dL (0.2-1.0)
[2019-07-19 05:25] LABS: Urine Microscopic Reflex ORDER UMIC
[2019-07-19 06:07] LABS: Urine Bacteria >50 /HPF (<20); Urine Culture Reflex Order REFLEXED; Urine Mucus 1+ /HPF (NONE SEEN); Urine RBC <5 /HPF (NONE SEEN)
[2019-07-19] MEDS ORDERED: BISACODYL 10 MG RECTAL SUPP RC PRN (09:36)
[2019-07-19] MEDS ORDERED: DIPHENHYDRAMINE 25 MG TAB/CAP PO PRN (09:36)
[2019-07-19] MEDS ORDERED: DOCUSATE NA/SENNA CONC 1 TAB PO PRN (09:36)
[2019-07-19] MEDS ORDERED: Oxycodone HCl/Acetaminophen 1 TAB TAB PO PRN (09:36)
[2019-07-19] MEDS ORDERED: ACETAMINOPHEN 500 MG TAB PO PRN (09:36)
[2019-07-19] MEDS ORDERED: IBUPROFEN 600 MG TAB PO PRN (09:36)
[2019-07-19] MEDS: METHYLERGONOVINE 0.2 MG TAB PO PRN ×4 (10:59→23:11)
[2019-07-19] MEDS: OXYTOCIN/LR 20 UNIT/1,000 ML BAG IV SCH ×2 (12:00→18:00)
--- NOTE | 2019-07-19 13:22 | OP ---
Surgeon: Francisco Irving MD -[id number]-kpf 4, para 3, 39 weeks, 3 cm on admission. Rupture of membranes, clear flui d. Went into an active labor pattern. Received Stadol 1 mg one time, otherwise Lamaze breathing mateo hniques. Went rapidly to complete. Second stage of 15 minutes. Spontaneous vaginal delivery of a 7 pounds 14 ounce female, loose nuchal cord. Rztn-[id number]-sjxprhmb shoulder dystocia. Flexion of the legs and suprapubic pressure effected delivery. No episiotomy. No laceration. Schultze delivery of the placenta. Uterus hypotonic. 0.2 mg of Methergine IM, IV drip Pitocin, massage. Estimated blood lo ss 450-500 cc. Patient quite stable at this point. Tolerated all procedures well. Negative beta st rep screen. Final Diagnoses: Term intrauterine . Vaginal delivery. Loose nuchal cord. Nlmd-zv-fjngee te shoulder dystocia. Mild uterine hypotonus. LILA/YONY Voice ID: [id number] Report ID: [id number]
[2019-07-19] MEDS: Oxycodone HCl/Acetaminophen 1 TAB TAB PO PRN (21:08)
[2019-07-19 23:21] LABS: RPR (Rapid Plasma Reagin) NON-REACT (NON-REACT)
[2019-07-20] MEDS: Oxycodone HCl/Acetaminophen 1 TAB TAB PO PRN ×2 (02:35→08:56)
[2019-07-20 07:00] VITALS: BP 105/67; TEMP 97.7
[2019-07-20] MEDS ORDERED: Tdap (Diph,Pertuss(Acell),Tet Vac) 0.5 ML SYR IMVAC ONE (08:09)
--- NOTE | 2019-07-20 10:19 | DS ---
24-year-old 4, para 3, 39 weeks' gestation, delivery of an 8-pound 7-ounce female, Apgars 9 a nd 9. Mild to moderate shoulder dystocia. Suprapubic pressure. Affected easy delivery. Loose nuch al cord x1. No episiotomy. No laceration. Schultze delivery of the placenta. Mild uterine hypoton us, 0.2 mg of Methergine IM as well as p.o. every 4 hours x4 total doses. Rh positive. Immune to Ru andry. Negative beta strep screen. Post ; afebrile, ambulating and voiding. Lochia is normal . Will be dismissed later today. Requests tramadol for analgesia; she knows that goes through the b reast milk. Tdap has been offered during her and she will receive it before she leaves. Final Diagnoses: Intrauterine gestation, 39 weeks. Vaginal delivery. Mild to moderate shoulder dys tocia. Mild uterine hypertonicity. Loose nuchal cord. Tdap offered. LILA/YONY Voice ID: [id number] Report ID: [id number]
[2019-07-22 04:07] LABS: HBsAG Nonreactive (Nonreactive)
--- NOTE | 2019-07-22 13:09 | PREOPHP ---
Date of Admission: 07/19/2019 23-year-old 4, para 3, 39 weeks' gestation, followed antepartum without complications. Rh po sitive, immune to Rubella. Negative beta strep screen, 3 to 3.5 cm, 50% effaced, vertex, -1 station. FHTs normal and reactive. Herson regularly. Rupture of membranes, clear fluid. Patient has gone natural with all of her other childbirths, says she intends the same thing with this one. Full labor talk given. Anticipate delivery later today. LILA/YONY Voice ID: [id number]
== END 2019-07-20 11:45 | disposition home or self-care (01) | DRG 807 ==
LOC: 2ND-WC 04:02
PROVIDERS: ADMIT Specialist; ATTEND Specialist
PROC: 10E0XZZ Delivery of Products of Conception, External Approach (ICD-10-PCS; principal; 2019-07-19)
PROC: 10907ZC Drainage of Amniotic Fluid, Therapeutic from Products of Conception, Via Natural or Artificial Opening (ICD-10-PCS; 2019-07-19)
PROC: 3E033VJ Introduction of Other Hormone into Peripheral Vein, Percutaneous Approach (ICD-10-PCS; 2019-07-19)
DX: O66.0 Obstructed labor due to shoulder dystocia (principal); Z37.0 Single live birth; O62.2 Other uterine inertia; Z3A.39 39 weeks gestation of pregnancy; Z23 Encounter for immunization
CPT/HCPCS: 36415; 81003; 81015; 85025; 86592; 86850; 86900; 86901; 87086; 87088; 87340; 90471; 90715; J0595; J2210; J2550; J2590; J7120

== ENCOUNTER 2020-12-28 12:35 | Emergency (ER) | payer OTHER ==
[2020-12-28 13:01] LABS: Urine Blood 3+ (Negative); Urine Glucose Negative (Negative); Urine Protein 1+ (Negative)
[2020-12-28 13:40] LABS: Urine RBC >50 /HPF (NONE SEEN)
[2020-12-28 13:41] LABS: Urine Bacteria 20-50 /HPF (<20); Urine Mucus 2+ /HPF (NONE SEEN)
--- NOTE | 2020-12-28 13:42 | RAD REPORT ---
EXAM DESCRIPTION: CT - Abdomen Pelvis Wo Contrast - 12/28/2020 1:27 pm CLINICAL HISTORY: Abdominal pain. Left flank pain COMPARISON: [facility] Protocol dated 07/24/2017 TECHNIQUE: CT imaging of the abdomen and pelvis was performed without contrast. Solid organ, bowel a nd vascular assessment is limited due to lack of IV and oral contrast. All CT scans are performed using dose optimization technique as appropriate and may include automated exposure control or mA/KV adjustment according to patient size. FINDINGS: The lower lung díaz are clear. The liver, spleen, pancreas, adrenal glands and right kidney are within normal limits for a limited n on-contrast examination. There is mild left hydronephrosis and hydroureter present. Obstructing calculus is not seen. No bowel obstruction, free air, free fluid or abscess. Small fat containing umbilical hernia. The evens endix is normal. The osseous structures are within normal limits.IUD is present in the uterus but may be low lying in position. IMPRESSION: Mild left hydronephrosis and hydroureter is seen without definitive calculus identified. This may indicate a non-radiopaque calculus or recently passed calculus. IUD appears low lying in position. A limited non-contrast examination was performed as detailed.
[2020-12-28] MEDS ORDERED: ACETAMINOPHEN 500 MG TAB ONE (13:49)
[2020-12-28] MEDS ORDERED: NA CHLORIDE 0.9% 1,000 ML ONE ×2 (13:49→14:38)
[2020-12-28 13:55] LABS: Absolute Lymphocytes (CBC) 1.2 K/uL (0.7-4.9); Basophils % 0.4 % (0-1.3); Hematocrit 38.2 % (36.0-45.0); Lymphocytes % 10.4 % (15.3-44.8); MPV 7.9 fL (7.6-11.3); RBC Red Blood Cell Count 4.41 M/uL (3.86-4.86)
[2020-12-28 13:58] LABS: ALT/SGPT 39 U/L (12-78); AST/SGOT 26 U/L (15-37); Albumin 3.4 g/dL (3.4-5.0); Alkaline Phosphatase 58 U/L (45-117); BUN Blood Urea Nitrogen 16 mg/dL (7-18); Bicarbonate 28 mmol/L (21-32); Bilirubin Direct < 0.1 mg/dL (0-0.2); Bilirubin Total 0.3 mg/dL (0.2-1.0); Glucose Level 101 mg/dL (74-106); Lipase 114 U/L (73-393); Protein, Total 7.3 g/dL (6.4-8.2); Sodium Level 139 mmol/L (136-145)
--- NOTE | 2020-12-28 14:24 | ER ---
Nurse's Notes [facility] Name: Melissa Iglesias Age: 25 yrs Sex: Female : 1995 Arrival Date: 12/28/2020 Time: 12:36 Bed 8 Private MD: Diagnosis: Pyelonephritis acute Presentation: 12/28 12:41 Acuity: RICH 3 aa5 12:41 Chief complaint: Patient states: "I think I have a urine infection". Pt c/o pain all aa5 over, c/o fever today, chills, and dizziness. Pt reports bladder pressure with voiding and states "there is not blood when I pee but I see blood when I wipe". 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 Coronavirus screen: chills. Ebola Screen: No symptoms or risks identified at this time. Initial Sepsis Screen: Does the patient meet any 2 criteria? Temp <36.0*C (96.8*F)) or > 38.3*C (100.9*F). HR > 90 bpm. Does the patient have a suspected source of infection? Yes:. Risk Assessment: Do you want to hurt yourself or someone else? Patient reports no desire to harm self or others. Onset of symptoms was December 2020. 12:41 Method Of Arrival: Ambulatory aa5 Triage Assessment: 12:50 General: Appears in no apparent distress. uncomfortable, Behavior is cooperative, bp appropriate for age, anxious. Pain: Complains of pain in pelvis. EENT: No deficits noted. Neuro: No deficits noted. Cardiovascular: No deficits noted. Respiratory: No deficits noted. GI: No signs and/or symptoms were reported involving the gastrointestinal system. : Reports burning with urination, pain with urination, urgency, urinary frequency. 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 - Social history:: Smoking status: Reported history of juuling and/or vaping. Screenin:50 Abuse screen: Denies threats or abuse. Denies injuries from another. Nutritional bp screening: No deficits noted. Tuberculosis screening: No symptoms or risk factors identified. Fall Risk None identified. Assessment: 12:50 General: SEE TRIAGE NOTE. bp 14:00 Reassessment: No changes from previously documented assessment. Patient and/or family bp updated on plan of care and expected duration. Pain level reassessed. Patient is alert, oriented x 3, equal unlabored respirations, skin warm/dry/pink. 14:45 Reassessment: No changes from previously documented assessment. Patient and/or family bp updated on plan of care and expected duration. Pain level reassessed. D/C ON HOLD FOR IV ABX. 15:58 Reassessment: No changes from previously documented assessment. Patient and/or family bp updated on plan of care and expected duration. Pain level reassessed. ABX COMPLETE. PT D/C HOME, DX WITH UTI. Vital Signs: 12:43 BP 123 / 81; Pulse 112; Resp 20 S; Temp 101.4(TE); Pulse Ox 99% on R/A; Weight 98.43 kg aa5 (R); Height 5 ft. 5 in. (165.10 cm) (R); 14:00 BP 112 / 62; Pulse 82; Resp 16; Pulse Ox 97% ; bp 16:00 BP 114 / 66; Pulse 79; Resp 18; Temp 98.9; Pulse Ox 99% ; bp 12:43 Body Mass Index 36.11 (98.43 kg, 165.10 cm) aa5 ED Course: 12:36 Patient arrived in ED. am2 12:41 Triage completed. aa5 12:41 Arm band placed on. aa5 12:45 Varsha Navarro MD is Attending Physician. sp3 12:50 Patient has correct armband on for positive identification. Placed in gown. Bed in low bp position. Call light in reach. Side rails up X2. 12:53 Nolan Garcia, DORA is Primary Nurse. bp 13:28 CT Abd/Pelvis - Without Contrast In Process Unspecified. EDMS 13:35 Inserted saline lock: 22 gauge in right forearm, using aseptic technique. Blood ll1 collected. 14:00 Basic Metabolic Panel Sent. bp 16:00 No provider procedures requiring assistance completed. IV discontinued, intact, bp bleeding controlled, No redness/swelling at site. Pressure dressing applied. Administered Medications: 13:45 Drug: NS 0.9% 1000 ml Route: IV; Rate: 1 bolus; Site: right antecubital; bp 14:51 Follow up: IV Status: Completed infusion; IV Intake: 1000ml bp 13:45 Drug: Tylenol 1000 mg Route: PO; bp 14:51 Follow up: Response: No adverse reaction; Temperature is decreased bp 14:45 Drug: LevaQUIN (levofloxacin) 500 mg Volume: 100 ml; Route: IVPB; Infused Over: 60 bp mins; Site: right antecubital; Intake: 14:51 IV: 1000ml; Total: 1000ml. bp Outcome: 14:24 Discharge ordered by . sp3 16:00 Discharged to home ambulatory. bp 16:00 Condition: stable 16:00 Discharge instructions given to patient, Instructed on discharge instructions, follow up and referral plans. medication usage, Demonstrated understanding of instructions, follow-up care, medications, Prescriptions given X 1. 16:02 Patient left the ED. bp Addendum: 12/31/2020 08:43 Addendum: Culture Results: Positive urine culture. No further action required. Bacteria e b sensitive to prescribed antibiotic. Signatures: Dispatcher [employer] EDMS Andree Katz RN RN aa5 Mihaela Altman am2 Nolan Garcia RN RN Yaima Vides Lynsay RN RN ll1 Varsha Navarro MD MD sp3 Corrections: (The following items were deleted from the chart) 12/28 12:44 12:41 Chief complaint: Patient states: "I think I have a urine infection". Pt c/o pain aa5 all over, c/o fever today, chills, and dizziness. Pt reports bladder pressure with voiding and states "there is not blood when I pee but I see blood when I wipe". aa5
--- NOTE | 2020-12-28 14:25 | EDPHYS ---
Physician Documentation [facility] Name: Melissa Iglesias Age: 25 yrs Sex: Female : 1995 Arrival Date: 12/28/2020 Time: 12:36 Bed 8 Private MD: ED Physician Varsha Navarro HPI: 12/28 13:21 This 25 yrs old Female presents to ER via Ambulatory with complaints of sp3 chills, Urinary Problem - blood, Dizziness. 13:21 25-year-old female with history of kidney stones and no prior UTI or pyelonephritis now sp3 presents with a 4-day history of left-sided flank pain. Patient states she also has dysuria and mild visual hematuria. Patient has no other past medical history or past surgical history. LMP was December 12. Patient has an IUD and so "doubt she is ". Patient also states that she has had fever and chills after her left flank pain increased in severity. Patient has no anterior abdominal pain, nausea, vomiting, diarrhea, chest pain, shortness of breath, upper back pain, headache, URI symptoms, known COVID-19 contacts, travel history, any other symptoms on ROS. Remainder of ROS negative.. 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 - Social history:: Smoking status: Reported history of juuling and/or vaping. ROS: 13:22 Eyes: Negative for injury, pain, redness, and discharge, ENT: Negative for injury, sp3 pain, and discharge, Neck: Negative for injury, pain, and swelling, Cardiovascular: Negative for chest pain, palpitations, and edema, Respiratory: Negative for shortness of breath, cough, wheezing, and pleuritic chest pain, MS/Extremity: Negative for injury and deformity, Skin: Negative for injury, rash, and discoloration, Neuro: Negative for headache, weakness, numbness, tingling, and seizure, Psych: Negative for depression, anxiety, suicide ideation, homicidal ideation, and hallucinations, Allergy/Immunology: Negative for hives, rash, and allergies, Endocrine: Negative for neck swelling, polydipsia, polyuria, polyphagia, and marked weight changes, Hematologic/Lymphatic: Negative for swollen nodes, abnormal bleeding, and unusual bruising. 13:22 All other systems are negative. Exam: 13:22 Constitutional: This is a well developed, well nourished patient who is awake, alert, sp3 and in no acute distress. Head/Face: Normocephalic, atraumatic. Eyes: Pupils equal round and reactive to light, extra-ocular motions intact. Lids and lashes normal. Conjunctiva and sclera are non-icteric and not injected. Cornea within normal limits. Periorbital areas with no swelling, redness, or edema. ENT: Nares patent. No nasal discharge, no septal abnormalities noted. External auditory canals are clear. Oropharynx with no redness, swelling, or masses, exudates, or evidence of obstruction, uvula midline. Mucous membranes moist. Neck: Trachea midline, no thyromegaly or masses palpated, and no cervical lymphadenopathy. Supple, full range of motion without nuchal rigidity, or vertebral point tenderness. No Meningismus. Chest/axilla: Normal chest wall appearance and motion. Nontender with no deformity. No lesions are appreciated. Cardiovascular: Regular rate and rhythm with a normal S1 and S2. No gallops, murmurs, or rubs. Normal PMI, no JVD. No pulse deficits. Respiratory: Lungs have equal breath sounds bilaterally, clear to auscultation and percussion. No rales, rhonchi or wheezes noted. No increased work of breathing, no retractions or nasal flaring. Abdomen/GI: Soft, non-tender, with normal bowel sounds. No distension or tympany. No guarding or rebound. No evidence of tenderness throughout. Back: No spinal tenderness. No costovertebral tenderness. Full range of motion. Skin: Warm, dry with normal turgor. Normal color with no rashes, no lesions, and no evidence of cellulitis. MS/ Extremity: Pulses equal, no cyanosis. Neurovascular intact. Full, normal range of motion. Neuro: Awake and alert, GCS 15, oriented to person, place, time, and situation. Cranial nerves II-XII grossly intact. Motor strength 5/5 in all extremities. Sensory grossly intact. Cerebellar exam normal. Normal gait. Psych: Awake, alert, with orientation to person, place and time. Behavior, mood, and affect are within normal limits. 13:22 Back: Positive left CVA tenderness. Patient is mildly tachycardic but is febrile. No anterior abdominal tenderness. Nonsurgical abdomen with no peritonitis.. Vital Signs: 12:43 BP 123 / 81; Pulse 112; Resp 20 S; Temp 101.4(TE); Pulse Ox 99% on R/A; Weight 98.43 kg aa5 (R); Height 5 ft. 5 in. (165.10 cm) (R); 14:00 BP 112 / 62; Pulse 82; Resp 16; Pulse Ox 97% ; bp 16:00 BP 114 / 66; Pulse 79; Resp 18; Temp 98.9; Pulse Ox 99% ; bp 12:43 Body Mass Index 36.11 (98.43 kg, 165.10 cm) aa5 MDM: 12:45 Patient medically screened. sp3 13:23 Data reviewed: vital signs, nurses notes. ED course: There are [id number]-old female sp3 with fever and left flank pain. Included in the differential is pyelonephritis, UTI high tract disease, kidney stone, infected kidney stone abdominal process. 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 We will obtain CT scan, laboratory values, urinalysis, and hydrate with IV fluids and give p.o. Tylenol for pain and fever control.. 14:22 ED course: Patient is improved with fever subsiding and heart rate coming down after sp3 Tylenol and IV fluids. CT scan demonstrates dilated left ureter with likely evidence of passed kidney stone. Mild WBC elevation and UA is consistent with UTI. Final diagnosis will be pyelonephritis and resolved kidney stone. Will administer Levaquin 500 mg IV in the ED and discharge patient on 7 days of p.o. Levaquin starting tomorrow. Patient's been educated on signs symptoms to return for any worsening condition, continued fever, decreased urine output, any other concerning findings that she may have. Patient follow-up with her PCP as needed and at the latest 7 days from today.. 12/28 12:46 Order name: UA MICROSCOPIC; Complete Time: 14:04 sp3 12/28 13:01 Order name: Urine Dipstick-Ancillary; Complete Time: 14:04 EDMS 12/28 13:06 Order name: Urine --Ancillary (enter results); Complete Time: 14:04 bd 12/28 13:20 Order name: Basic Metabolic Panel sp3 12/28 13:20 Order name: CBC with Diff; Complete Time: 14:04 sp3 12/28 13:20 Order name: Hepatic Function; Complete Time: 14:04 sp3 12/28 13:20 Order name: Lipase; Complete Time: 14:04 sp3 12/28 13:20 Order name: CT Abd/Pelvis - Without Contrast; Complete Time: 14:04 sp3 12/28 13:21 Order name: Basic Metabolic Panel; Complete Time: 14:04 EDMS 12/28 13:42 Order name: Urine Culture EDMS 12/28 12:46 Order name: Urine Dipstick-Ancillary (obtain specimen); Complete Time: 13:05 sp3 12/28 12:46 Order name: Urine Test (obtain specimen); Complete Time: 13:05 sp3 12/28 13:20 Order name: IV Saline Lock; Complete Time: 13:35 sp3 12/28 13:20 Order name: Labs collected and sent; Complete Time: 13:35 sp3 Administered Medications: 13:45 Drug: NS 0.9% 1000 ml Route: IV; Rate: 1 bolus; Site: right antecubital; bp 14:51 Follow up: IV Status: Completed infusion; IV Intake: 1000ml bp 13:45 Drug: Tylenol 1000 mg Route: PO; bp 14:51 Follow up: Response: No adverse reaction; Temperature is decreased bp 14:45 Drug: LevaQUIN (levofloxacin) 500 mg Volume: 100 ml; Route: IVPB; Infused Over: 60 bp mins; Site: right antecubital; Disposition Summary: 12/28/20 14:24 Discharge Ordered Location: Home sp3 Condition: Stable sp3 Diagnosis - Pyelonephritis acute sp3 Followup: sp3 - With: Private Physician - When: - Reason: Recheck today's complaints Discharge Instructions: - Discharge Summary Sheet sp3 - Pyelonephritis, Adult sp3 Forms: - Medication Reconciliation Form sp3 - Thank You Letter sp3 - Antibiotic Education sp3 - Prescription Opioid Use sp3 Prescriptions: - levofloxacin 500 mg Oral Tablet - take 1 tablet by ORAL route once daily for 7 days; 7 tablet; Refills: 0, sp3 Product Selection Permitted Signatures: Dispatcher [employer] EDAndree Ramon, RN RN aa5 Nolan Garcia RN RN bp Varsha Navarro MD MD sp3 Corrections: (The following items were deleted from the chart) 15:08 14:22 Urine Culture+[id number].LAB.BRZ ordered. EDMS EDMS
[2020-12-28] MEDS ORDERED: Levofloxacin500mg IV 500 MG/100 ML BAG IV ONE (14:42)
[2020-12-28 16:38] VITALS: BP 114/66; TEMP 98.9; O2SAT 99
--- OUTSIDE RECORDS SUMMARY | 2021-01-02 16:24 | XMS REPORT | Continuity of Care Document ---
:1995 Author Organization [facility] t Address [address] [place] [address] Dr. Delarosa [address] [place] [id number] Care Team Providers Name Role Phone Unavailable Unavailable Unavailable Problems This patient has no known problems. Allergies, Adverse Reactions, Alerts This patient has no known allergies or adverse reactions. Medications This patient has no known medications. Procedures This patient has no known procedures. Results This patient has no known results.
== END 2020-12-28 16:02 | disposition home or self-care (01) ==
LOC: ER 12:35
DX: N10 Acute pyelonephritis (principal); Z88.0 Allergy status to penicillin
CPT/HCPCS: 96361; 87088; 85025; 87086; 80048; 36415; 81025; 80076; 87077; 87186; 83690; 74176; 96374; 99284; J7030 ×2; 81003; 81015

== ENCOUNTER 2022-11-01 05:10 | Emergency (ER) | payer OTHER ==
--- OUTSIDE RECORDS SUMMARY | 2022-11-01 05:13 | XMS REPORT | Continuity of Care Document ---
:1995 Author Organization [facility] t Address [address] [facility] [address] [place] [address] Care Team Providers Name Role Phone PCP, PATIENT DOES NOT HAVE A Primary Care Physician Unavaila ble CANDI BARRETT Attending Clinician Unavailable CANDI BARRETT Attending Clinician Unavailable Payers Payer Name Policy Type Policy Number Effective Date Expiration Date S ource [place] [employer] [id number] 2022 00:00:00 Problems This patient has no known problems. Allergies, Adverse Reactions, Alerts Allergy Allergy Status Severity Reaction(s) Onset Inactive Treating Comm ents Source Name Type Date Date Clinician [facility] Active [facility] 2017[facility]02 [facility] [address] Medications This patient has no known medications. Procedures This patient has no known procedures. Encounters Start End Encounter Admission Attending Care Care Encounter Source Date/Time Date/Time Type Type Clinicians Facility Department ID 2022-09-01 2022-09-01 Outpatient R CANDI BARRETT [facility] B [id number] [facility] 10[facility]00[facility]00 10[facility]00:00 [facility] This patient has no known results.
[2022-11-01 06:17] LABS: Barbiturates NEGATIVE (NEGATIVE); Benzodiazepines NEGATIVE (NEGATIVE); Cocaine NEGATIVE (NEGATIVE); METHAMPHETAM NEGATIVE (NEGATIVE); Methadone NEGATIVE (NEGATIVE); Opiates NEGATIVE (NEGATIVE); Phencyclidine NEGATIVE (NEGATIVE); THC Cannibis POSITIVE (NEGATIVE)
[2022-11-01 06:18] LABS: Specific Gravity 1.022 (1.005-1.030)
[2022-11-01 06:19] LABS: SARS-CoV-2 Antigen Rapid Res Negative (Negative)
[2022-11-01 06:48] LABS: Absolute Lymphocytes (CBC) 2.5 K/uL (0.7-4.9); Hematocrit 37.2 % (36.0-45.0); Lymphocytes % 26.4 % (15.3-44.8); MCV 88.9 fL (80-100); MPV 7.5 fL (7.6-11.3); Platelets 256 thou/uL (152-406); RBC Red Blood Cell Count 4.18 M/uL (3.86-4.86)
[2022-11-01 06:54] LABS: Protime INR 1.09
--- NOTE | 2022-11-01 07:09 | ER ---
Nurse's Notes [facility] Name: Melissa Iglesias Age: 27 yrs Sex: Female : 1995 Arrival Date: 11/01/2022 Time: 05:10 Bed 5 Private MD: Diagnosis: Nausea with vomiting, unspecified;Other specified anxiety disorders;Chest pain, unspecified;Acute anxiety attack. Presentation: 11/01 05:15 Chief complaint: Patient states: Pt reports nausea that started at 7pm yesterday, jb4 dizziness that started at midnight, and chest pain with left sided numbness that started at 4 am. Coronavirus screen: At this time, the client does not indicate any symptoms associated with coronavirus-19. Ebola Screen: No symptoms or risks identified at this time. Initial Sepsis Screen: Does the patient meet any 2 criteria? No. Patient's initial sepsis screen is negative. Does the patient have a suspected source of infection? No. Patient's initial sepsis screen is negative. Risk Assessment: Do you want to hurt yourself or someone else? Patient reports no desire to harm self or others. Onset of symptoms was November 01, 2022. Transition of care: patient was not received from another setting of care. 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 - Social history:: Patient/guardian denies using alcohol, street drugs, IV drugs, caffeine, over the counter diet medications, tobacco products, Smoking status: unknown. - Family history:: not pertinent. Screenin:31 [facility] ED Fall Risk Assessment (Adult) History of falling in the last 3 months, ap3 including since admission No falls in past 3 months (0 pts). Abuse screen: Denies threats or abuse. Nutritional screening: No deficits noted. Tuberculosis screening: No symptoms or risk factors identified. Assessment: 06:07 General: Appears in no apparent distress. comfortable, Behavior is calm, cooperative, jb4 appropriate for age. Pain: Complains of pain in chest Pain does not radiate. Pain currently is 5 out of 10 on a pain scale. Neuro: Level of Consciousness is awake, alert, obeys commands, Oriented to person, place, time, situation. Cardiovascular: Patient's skin is warm and dry. Respiratory: Airway is patent Respiratory effort is even, unlabored, Respiratory pattern is regular, symmetrical. GI: No signs and/or symptoms were reported involving the gastrointestinal system. : No signs and/or symptoms were reported regarding the genitourinary system. EENT: No signs and/or symptoms were reported regarding the EENT system. Derm: Skin is intact, Skin is pink, warm \T\ dry. Musculoskeletal: Circulation, motion, and sensation intact. Range of motion: intact in all extremities. Vital Signs: 05:15 BP 126 / 89; Pulse 61; Resp 16; Temp 98; Pulse Ox 99% on R/A; Weight 94.35 kg; Height 5 jb4 ft. 4 in. (R); 05:15 Body Mass Index 35.70 (94.35 kg, 162.56 cm) jb4 ED Course: 05:12 Patient arrived in ED. rv1 05:15 Enzo Yung, RN is Primary Nurse. jb4 05:19 Triage completed. jb4 05:20 Marcio Garcia MD is Attending Physician. sp4 05:21 Arm band placed on right wrist. jb4 05:46 Troponin HS Sent. jb4 05:46 PT-INR Sent. jb4 05:46 NT PRO-BNP Sent. jb4 05:46 LFT's Sent. jb4 05:46 Magnesium Sent. jb4 05:46 CBC with Diff Sent. jb4 05:46 Basic Metabolic Panel Sent. jb4 05:47 Test, Urine Sent. jb4 05:47 Urine Drug Screen Sent. jb4 05:47 TSH Sent. jb4 05:47 SARS RAPID Sent. jb4 05:47 Lipase Sent. jb4 05:47 T4 Free Sent. jb4 06:20 XRAY Chest (1 view) In Process Unspecified. EDMS 07:31 No provider procedures requiring assistance completed. IV discontinued, intact, ap3 bleeding controlled, No redness/swelling at site. Pressure dressing applied. 07:32 Patient has correct armband on for positive identification. Bed in low position. Call ap3 light in reach. Side rails up X2. Adult w/ patient. Provided Education on: discharge instructions. Pulse ox on. NIBP on. Administered Medications: 05:23 Not Given (Given by EMS): Aspirin PO Chewable Tablet 324 mg PO once; 81 mg tablets x 4 jb4 05:46 Drug: NS 0.9% IV 1000 ml Route: IV; Rate: 1 bolus; Site: left antecubital; jb4 07:32 Follow up: IV Status: Completed infusion ap3 Medication: 07:32 VIS not applicable for this client. ap3 Outcome: 07:08 Discharge ordered by . sp4 07:32 Discharged to home ambulatory, with family. ap3 07:32 Condition: good 07:32 Discharge instructions given to patient, family, Instructed on discharge instructions, follow up and referral plans. medication usage, Demonstrated understanding of instructions, follow-up care, medications, Prescriptions given X 2. 07:33 Patient left the ED. ap3 Signatures: Dispatcher [employer] EDMS Enzo Yung RN RN jb4 Mihaela Enriquez RN RN ap3 Kathryn Louis rv1 Marcio Garcia MD MD sp4
--- NOTE | 2022-11-01 07:09 | EDPHYS ---
Physician Documentation [facility] Name: Melissa Iglesias Age: 27 yrs Sex: Female : 1995 Arrival Date: 11/01/2022 Time: 05:10 Bed 5 Private MD: ED Physician Marcio Garcia HPI: 11/01 05:22 This 27 yrs old Female presents to ER via EMS with complaints of nausea, sp4 chest pain . 05:22 27-year-old female presents with EMS for a cute onset nausea starting at 7 PM sp4 yesterday. Also this morning at 4 AM patient woke up with chest pain and left arm numbness. Patient reported midsternal chest pain associated with persistent numbness in the left hand. Patient denied any history of heart disease in the past. History of anemia and intrauterine device. Patient denied any medicines on daily basis. Denied any drug use. Denied alcohol. 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 - Social history:: Patient/guardian denies using alcohol, street drugs, IV drugs, caffeine, over the counter diet medications, tobacco products, Smoking status: unknown. - Family history:: not pertinent. ROS: 05:22 Constitutional: Negative for fever, chills, and weight loss, Eyes: Negative for injury, sp4 pain, redness, and discharge, Cardiovascular: Negative for palpitations, and edema, positive for chest pain and left arm numbness 05:22 All other systems are negative. Exam: 05:22 Constitutional: This is a well developed, well nourished patient who is awake, alert, sp4 and in no acute distress. Head/Face: Normocephalic, atraumatic. Eyes: Pupils equal round and reactive to light, extra-ocular motions intact. Lids and lashes normal. Conjunctiva and sclera are not injected. Cornea within normal limits. Periorbital areas with no swelling, redness, or edema. ENT: Nares patent. No nasal discharge, no septal abnormalities noted. Tympanic membranes are normal and external auditory canals are clear. Oropharynx with no redness, swelling, or masses, exudates, or evidence of obstruction, uvula midline. Mucous membranes moist. Neck: Trachea midline, no thyromegaly or masses palpated, and no cervical lymphadenopathy. Supple, full range of motion without nuchal rigidity, or vertebral point tenderness. Chest/axilla: Normal chest wall appearance and motion. Nontender with no deformity. No lesions are appreciated. Cardiovascular: Regular rate and rhythm with a normal S1 and S2. No gallops, murmurs, or rubs. Normal PMI, no JVD. No pulse deficits. Respiratory: Lungs have equal breath sounds bilaterally, clear to auscultation and percussion. No rales, rhonchi or wheezes noted. No increased work of breathing, no retractions or nasal flaring. Abdomen/GI: Soft, non-tender, with normal bowel sounds. No distension or tympany. No guarding or rebound. No evidence of tenderness throughout. Back: No spinal tenderness. No costovertebral tenderness. Skin: Warm, dry with normal turgor. Normal color with no rashes, no lesions, and no evidence of cellulitis. MS/ Extremity: Pulses equal, no cyanosis. Neurovascular intact. Full, normal range of motion. Neuro: Awake and alert, GCS 15, oriented to person, place, time, and situation. Cranial nerves II-XII grossly intact. Motor strength 5/5 in all extremities. Sensory grossly intact. Psych: Awake, alert, with orientation to person, place and time. Behavior, mood, and affect are within normal limits 06:32 ECG was reviewed by the Attending Physician. EKG time 0 557 sinus bradycardia at the sp4 rate of 56 with sinus arrhythmia otherwise normal EKG. No ectopy Vital Signs: 05:15 BP 126 / 89; Pulse 61; Resp 16; Temp 98; Pulse Ox 99% on R/A; Weight 94.35 kg; Height 5 jb4 ft. 4 in. (R); 05:15 Body Mass Index 35.70 (94.35 kg, 162.56 cm) jb4 MDM: 05:21 Patient medically screened. sp4 06:33 Differential Diagnosis altered mental status, sepsis, flu. Data reviewed: vital signs, sp4 nurses notes, EMS record, old medical records, lab test result(s), EKG, radiologic studies, plain films. 06:57 ED course: Chest X ray - COMPARISON: No relevant prior studies available. FINDINGS: sp4 LUNGS: Unremarkable. No consolidation. PLEURAL SPACE: Unremarkable. No pleural effusion. No pneumothorax. HEART: See below. MEDIASTINUM: Prominence of the cardiomediastinal silhouette, likely exaggerated secondary to portable technique, lordotic positioning, and patient body habitus. BONES/JOINTS: Unremarkable. IMPRESSION: No acute findings in the chest. . 11/01 05:20 Order name: Basic Metabolic Panel; Complete Time: 07:11 11/01 05:20 Order name: CBC with Diff; Complete Time: 06:56 4 11/01 05:20 Order name: LFT's; Complete Time: 07:11/01 05:20 Order name: Magnesium; Complete Time: 07:11/01 05:20 Order name: NT PRO-BNP; Complete Time: 07:11/01 05:20 Order name: PT-INR; Complete Time: 06:56 11/01 05:20 Order name: Troponin HS; Complete Time: 07:11 11/01 05:21 Order name: Test, Urine; Complete Time: 06:31 11/01 05:21 Order name: Urine Drug Screen; Complete Time: 06:31 11/01 05:21 Order name: SARS RAPID; Complete Time: 06:31 11/01 05:21 Order name: TSH; Complete Time: 07:11/01 05:21 Order name: T4 Free; Complete Time: 07:11/01 05:21 Order name: Lipase; Complete Time: 07:11/01 05:20 Order name: XRAY Chest (1 view); Complete Time: 07:11 11/01 05:20 Order name: EKG; Complete Time: 05:21 11/01 05:20 Order name: Cardiac monitoring; Complete Time: 05:46 11/01 05:20 Order name: EKG - Nurse/Tech; Complete Time: 06:07 11/01 05:20 Order name: IV Saline Lock; Complete Time: 05:46 11/01 05:20 Order name: Labs collected and sent; Complete Time: 05:46 sp4 11/01 05:20 Order name: O2 Per Protocol; Complete Time: 05:46 sp4 11/01 05:20 Order name: O2 Sat Monitoring; Complete Time: 05:46 sp4 11/01 06:11 Order name: Misc. Order: RECOLLECT ALL LABS; Complete Time: 06:35 rv1 EC:32 Rate is 56 beats/min. Rhythm is regular, Sinus bradycardia. QRS [place] is Normal. VT sp4 interval is normal. QRS interval is normal. QT interval is normal. No Q waves. T waves are Normal. No ST changes noted. Clinical impression: No evidence of ischemia. Interpreted by me. Reviewed by me. Administered Medications: 05:23 Not Given (Given by EMS): Aspirin PO Chewable Tablet 324 mg PO once; 81 mg tablets x 4 jb4 05:46 Drug: NS 0.9% IV 1000 ml Route: IV; Rate: 1 bolus; Site: left antecubital; jb4 07:32 Follow up: IV Status: Completed infusion ap3 Disposition Summary: 11/01/22 07:08 Discharge Ordered Location: Home sp4 Problem: new sp4 Symptoms: have improved sp4 Condition: Stable sp4 Diagnosis - Nausea with vomiting, unspecified sp4 - Other specified anxiety disorders sp4 - Chest pain, unspecified sp4 - Acute anxiety attack. sp4 Followup: sp4 - With: Private Physician - When: As needed - Reason: Discharge Instructions: - Discharge Summary Sheet sp4 - Nonspecific Chest Pain, Adult, Oovo-iv-Lzet sp4 Forms: - Family Work Release ap3 - Patient Portal Instructions sp4 Prescriptions: - ondansetron 4 mg Oral Tablet,disintegrating - take 1 tablet by ORAL route every 6 hours for 14 days PRN nausea; 30 tablet; sp4 Refills: 0, Product Selection Permitted - Valium 5 mg Oral Tablet - take 1 tablet by ORAL route once daily As needed PRN anxiety; 12 tablet; sp4 Refills: 0, Product Selection Permitted Signatures: Dispatcher [employer] Enzo Mcpherson RN RN jb4 Mihaela Erniquez RN RN ap3 Kathryn Louis rv1 Marcio Garcia MD MD sp4
--- NOTE | 2022-11-01 07:09 | RAD REPORT ---
EXAM DESCRIPTION: RAD - Chest Single View - 11/01/2022 6:18 am CLINICAL HISTORY: CHEST PAIN COMPARISON: No comparisons FINDINGS: Lines: None. Lungs: No evidence of edema or pneumonia. Pleural: No significant pleural effusions or pneumothorax. Cardiac: The heart size is within normal limits. Mediastinum: Within normal limits. Bones: No acute fractures. Other: None IMPRESSION: No acute cardiopulmonary disease.
[2022-11-01 07:10] LABS: Albumin 3.2 g/dL (3.4-5.0); Bilirubin Direct 0.1 mg/dL (0-0.2); Bilirubin Indirect, Calculated 0.2 mg/dL (0.2-0.8); Bilirubin Total 0.3 mg/dL (0.2-1.0); Magnesium 1.8 mg/dL (1.6-2.4); Potassium 3.9 mEq/L (3.5-5.1); Protein, Total 6.9 g/dL (6.4-8.2); Thyroid Stimulating Hormone 1.2 uIU/mL (0.358-3.740); Troponin High Sensitivity 3.8 pg/mL (<58.9)
[2022-11-01 07:52] VITALS: BP 126/89; TEMP 98; O2SAT 99
--- NOTE | 2022-11-02 14:59 | EKG ---
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
== END 2022-11-01 07:33 | disposition home or self-care (01) ==
LOC: ER 05:10
DX: F41.0 Panic disorder [episodic paroxysmal anxiety] (principal); R11.2 Nausea with vomiting, unspecified; F41.8 Other specified anxiety disorders; Z20.822 Contact with and (suspected) exposure to COVID-19; Z88.0 Allergy status to penicillin
CPT/HCPCS: 36415; 71045; 80048; 80076; 80307; 81025; 83690; 83735; 83880; 84439; 84443; 84484; 85025; 85610; 87811; 93005; 96360; 96361; 99284

== ENCOUNTER → 2023-02-10 | Emergency (ER) | payer SELFPAY ==
--- OUTSIDE RECORDS SUMMARY | 2023-02-10 01:52 | XMS REPORT | Continuity of Care Document ---
Author Name Unknown Address [address] [place] [address] [facility] thconnect Address [address] [place] [address] Care Team Providers Care School Year Nanny Name Role Phone PCP, PATIENT DOES NOT HAVE A Primary Care Physic chelsea Unavailable CANDI BARRETT Attending Clinician CANDI Lou Attending Clinician Dayday ricardo Payers Payer Name Policy Type Policy Number Effective Date Expirati on Date Source [place] [employer] [id number] 2022 00:00:00 Allergies, Adverse Reactions, Alerts Allergy Name Allergy Type Status Severity Reaction(s) Onset Date Inactive Date Treating Clinician Comments Source PENICILL IN DRUG INGREDI Active Other-Cmnt 2017-02 00:00: 00 [facility] Encounters Start Date/Time End Date/Time Encounter Type Admission Type Attending Clinicians Care Facility Care Department Encounter ID Source 2022-09-01 10:00:00 2022-09-01 10:00:00 Outpatient R CANDI BARRETT [facility] [id number] [facility]
--- NOTE | 2023-02-10 02:10 | EDPHYS ---
Physician Documentation [facility] Name: Melissa Iglesias Age: 27 yrs Sex: Female : 1995 Arrival Date: 02/10/2023 Time: 01:49 Bed Treatment Private MD: ED Physician Varsha Navarro HPI: 02/10 02:05 This 27 yrs old Female presents to ER via Unassigned with complaints of Jaw Pain, Mouth sp3 Swelling, Toothache. 02:05 27-year-old female with no significant past medical history presents with right sp3 maxillary molar pain from a known impacted tooth which she is getting scheduled with her dentist. She states that she feels like it is infected and that the pain in her maxilla is getting worse. She denies fever, headache, throat pain, difficulty breathing, difficulty swallowing, neck pain, chest pain, shortness of breath, or any other signs or symptoms on ROS at this time.. 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 - Social history:: Smoking status: Patient uses street drugs, marijuana. ROS: 02:06 Constitutional: Negative for fever, chills, and weight loss, Eyes: Negative for injury, sp3 pain, redness, and discharge, Neck: Negative for injury, pain, and swelling, Cardiovascular: Negative for chest pain, palpitations, and edema, Respiratory: Negative for shortness of breath, cough, wheezing, and pleuritic chest pain, Abdomen/GI: Negative for abdominal pain, nausea, vomiting, diarrhea, and constipation, Back: Negative for injury and pain, MS/Extremity: Negative for injury and deformity, Skin: Negative for injury, rash, and discoloration, Neuro: Negative for headache, weakness, numbness, tingling, and seizure, 02:06 All other systems are negative, Exam: 02:06 Constitutional: This is a well developed, well nourished patient who is awake, alert, sp3 and in no acute distress. Head/Face: Normocephalic, atraumatic. Eyes: Pupils equal round and reactive to light, extra-ocular motions intact. Lids and lashes normal. Conjunctiva and sclera are non-icteric and not injected. Cornea within normal limits. Periorbital areas with no swelling, redness, or edema. Neck: Trachea midline, no thyromegaly or masses palpated, and no cervical lymphadenopathy. Supple, full range of motion without nuchal rigidity, or vertebral point tenderness. No Meningismus. Chest/axilla: Normal chest wall appearance and motion. Nontender with no deformity. No lesions are appreciated. Cardiovascular: Regular rate and rhythm with a normal S1 and S2. No gallops, murmurs, or rubs. Normal PMI, no JVD. No pulse deficits. Respiratory: Lungs have equal breath sounds bilaterally, clear to auscultation and percussion. No rales, rhonchi or wheezes noted. No increased work of breathing, no retractions or nasal flaring. Abdomen/GI: Soft, non-tender, with normal bowel sounds. No distension or tympany. No guarding or rebound. No evidence of tenderness throughout. Back: No spinal tenderness. No costovertebral tenderness. Full range of motion. Skin: Warm, dry with normal turgor. Normal color with no rashes, no lesions, and no evidence of cellulitis. MS/ Extremity: Pulses equal, no cyanosis. Neurovascular intact. Full, normal range of motion. Neuro: Awake and alert, GCS 15, oriented to person, place, time, and situation. Cranial nerves II-XII grossly intact. Motor strength 5/5 in all extremities. Sensory grossly intact. Cerebellar exam normal. Normal gait. Psych: Awake, alert, with orientation to person, place and time. Behavior, mood, and affect are within normal limits. 02:06 ENT: Chipped tooth right upper maxilla molar noted with surrounding inflammation.. Vital Signs: 02:04 BP 123 / 84; Pulse 78; Resp 18 S; Pulse Ox 98% on R/A; Weight 89.81 kg (R); Height 5 as6 ft. 4 in. (R); Pain 6/10; 02:04 Body Mass Index 33.99 (89.81 kg, 162.56 cm) as6 02:04 Pain Scale: Adult as6 MDM: 02:05 Patient medically screened. sp3 02:07 Data reviewed: vital signs, nurses notes. ED course: Will cover any possible infection sp3 with clindamycin since she is penicillin allergic. She is to continue her follow-up with her dentist.. Administered Medications: No medications were administered Disposition Summary: 02/10/23 02:09 Discharge Ordered Notes: Location: Home sp3 Condition: Stable sp3 Diagnosis - Tooth ache, dental infection sp3 Followup: sp3 - With: Private Physician - When: Upon discharge from the Emergency Department - Reason: Continuance of care Discharge Instructions: - Discharge Summary Sheet sp3 - Dental Abscess sp3 Forms: - Medication Reconciliation Form sp3 - Thank You Letter sp3 - Antibiotic Education sp3 - Prescription Opioid Use sp3 - Patient Portal Instructions sp3 - Leadership Thank You Letter sp3 Prescriptions: - Clindamycin HCl 300 mg Oral Capsule - take 1 capsule ORAL route every 6 hours for 10 days; 40 capsule; Refills: 0, sp3 Product Selection Permitted Signatures: Varsha Navarro MD MD sp3 Barrie Berger RN RN as6
--- NOTE | 2023-02-10 02:10 | ER ---
Nurse's Notes [facility] Name: Melissa Iglesias Age: 27 yrs Sex: Female : 1995 Arrival Date: 02/10/2023 Time: 01:49 Bed Treatment Private MD: Diagnosis: Tooth ache, dental infection Presentation: 02/10 02:04 Chief complaint: Patient states: right upper dental pain. Coronavirus screen: At this as6 time, the client does not indicate any symptoms associated with coronavirus-19. Ebola Screen: No symptoms or risks identified at this time. Initial Sepsis Screen: Does the patient meet any 2 criteria? No. Patient's initial sepsis screen is negative. Does the patient have a suspected source of infection? No. Patient's initial sepsis screen is negative. Risk Assessment: Do you want to hurt yourself or someone else? Patient reports no desire to harm self or others. Onset of symptoms was February 08, 2023. 02:04 Method Of Arrival: Ambulatory as6 02:04 Acuity: RICH 4 as6 Triage Assessment: 02:09 General: Appears in no apparent distress. Behavior is calm, cooperative. Pain: as6 Complains of pain in mouth. EENT: Poor dentition noted. Dental caries noted in upper right third molar (#1) Reports pain since right upper mouth. 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 - Social history:: Smoking status: Patient uses street drugs, marijuana. Screenin:[facility] ED Fall Risk Assessment (Adult) Score/Fall Risk Level 0 - 2 = Low Risk. Abuse as6 screen: Denies threats or abuse. Denies injuries from another. Nutritional screening: No deficits noted. Tuberculosis screening: No symptoms or risk factors identified. Vital Signs: 02:04 BP 123 / 84; Pulse 78; Resp 18 S; Pulse Ox 98% on R/A; Weight 89.81 kg (R); Height 5 as6 ft. 4 in. (R); Pain 6/10; 02:04 Body Mass Index 33.99 (89.81 kg, 162.56 cm) as6 02:04 Pain Scale: Adult as6 ED Course: 01:53 Patient arrived in ED. jj6 02:00 Varsha Navarro MD is Attending Physician. sp3 02:07 Triage completed. as6 02:07 Arm band placed on. as6 02:08 Barrie Berger, RN is Primary Nurse. as6 02:11 Bed in low position. Call light in reach. Provided Education on: rx teaching, follow up as6 with dentist . 02:11 No provider procedures requiring assistance completed. Patient did not have IV access as6 during this emergency room visit. Administered Medications: No medications were administered Medication: 02:11 VIS not applicable for this client. as6 Outcome: 02:09 Discharge ordered by . sp3 02:11 Discharged to home ambulatory, as6 02:11 Condition: stable 02:11 Discharge instructions given to patient, Instructed on discharge instructions, follow up and referral plans. medication usage, Demonstrated understanding of instructions, follow-up care, medications, Prescriptions given X 1, 02:14 Patient left the ED. as6 Signatures: Varsha Navarro MD MD sp3 Lizbeth Gonzales jj6 Barrie Berger, RN RN as6
[2023-02-10 05:11] VITALS: BP 123/84; O2SAT 98
== END ==
LOC: ER 01:49
DX: K04.7 Periapical abscess without sinus (principal)
CPT/HCPCS: 99283

== ENCOUNTER → 2023-03-04 | Emergency (ER) | payer OTHER, SELFPAY ==
[~2023-03-04] MED LIST: BISACODYL E.C. 5 MG TAB PO ONE; KETOROLAC 30 MG/ML INJ ONE; NA CHLORIDE 0.9% 1,000 ML ONE; ONDANSETRON 4 MG/2 ML VIAL ONE
--- OUTSIDE RECORDS SUMMARY | 2023-03-04 14:22 | XMS REPORT | Continuity of Care Document ---
Author Name Unknown Address [address] [place] [address] [facility] thconnect Address [address] [place] [address] Care Team Providers Care Health Manager Name Role Phone PCP, PATIENT DOES NOT HAVE A Primary Care Physic chelsea Unavailable CANDI BARRETT Attending Clinician CANDI Lou Attending Clinician Dayday ricardo Payers Payer Name Policy Type Policy Number Effective Date Expirati on Date Source [place] [employer] [id number] 2022 00:00:00 Allergies, Adverse Reactions, Alerts Allergy Name Allergy Type Status Severity Reaction(s) Onset Date Inactive Date Treating Clinician Comments Source PENICILL IN DRUG INGREDI Active Other-Cmnt 2017-02 00:00: 00 [facility] Encounters Start Date/Time End Date/Time Encounter Type Admission Type Attending Clinicians Care Facility Care Department Encounter ID Source 2022-09-01 10:00:00 2022-09-01 10:00:00 Outpatient R CANDI BARRETT [facility] [id number] [facility]
[2023-03-04 15:45] LABS: Hematocrit 42.6 % (36.0-45.0); Lymphocytes % 19.1 % (15.3-44.8); MCV 90.3 fL (80-100); MPV 7.5 fL (7.6-11.3); Platelets 346 thou/uL (152-406); RBC Red Blood Cell Count 4.72 M/uL (3.86-4.86)
[2023-03-04 15:49] LABS: Urine Bacteria None Seen /HPF (<20); Urine Bilirubin NEGATIVE (Negative); Urine Blood 3+ (OVER) (Negative); Urine Clarity Extremely Turbid (Clear); Urine Color Yellow (Yellow); Urine Glucose NEGATIVE (Negative); Urine Mucus 4+ /HPF (None Seen); Urine Protein 1+ (Negative); Urine RBC <5 /HPF (None Seen); Urine Urobilinogen Normal (Normal); Urine pH 6.5 (5.0-7.0)
[2023-03-04 15:57] LABS: Albumin 3.9 g/dL (3.4-5.0); Bilirubin Total 0.3 mg/dL (0.2-1.0); Potassium 3.6 mEq/L (3.5-5.1); Protein, Total 8.5 g/dL (6.4-8.2)
--- NOTE | 2023-03-04 17:27 | RAD REPORT ---
EXAM DESCRIPTION: CT - Abdomen Pelvis W Contrast - 03/04/2023 5:11 pm CLINICAL HISTORY: Abdominal pain COMPARISON: 2014 TECHNIQUE: Computed axial tomography of the abdomen and pelvis was obtained. 100 cc Isovue-300 is ad ministered intravenously. Oral contrast was given. All CT scans are performed using dose optimization technique as appropriate and may include automated exposure control or mA/KV adjustment according to patient size. FINDINGS: Liver, spleen, pancreas, adrenals and right kidney unremarkable. Mild prominence of an extrarenal pelvis left kidney. There is no evidence of diverticulitis Normal appendix. No adnexal mass. Small umbilical hernia contains fat. Prominence of the endometrial stripe IMPRESSION: Prominence of the endometrial stripe may be related to the normal menstrual cycle. Follo wup pelvic ultrasound in a couple months recommended for re-evaluation. Mild prominence of extrarenal pelvis left kidney probably physiologic. Partial, mild UPJ obstruction can also have this appearance and should be correlated clinically
--- NOTE | 2023-03-04 18:32 | ER ---
Nurse's Notes [facility] Name: Melissa Iglesias Age: 27 yrs Sex: Female : 1995 Arrival Date: 03/04/2023 Time: 14:20 Bed 6 Private MD: Diagnosis: Constipation Presentation: 03/04 14:45 Chief complaint: Patient states: Constipation, nausea, vomiting and abdominal pain for nj1 3 days. No fever. Coronavirus screen: Vaccine status: Patient reports being unvaccinated. Ebola Screen: Patient denies travel to an Ebola-affected area in the 21 days before illness onset. Initial Sepsis Screen: Does the patient meet any 2 criteria? No. Patient's initial sepsis screen is negative. Does the patient have a suspected source of infection? No. Patient's initial sepsis screen is negative. Risk Assessment: Do you want to hurt yourself or someone else? Patient reports no desire to harm self or others. Onset of symptoms was March 01, 2023. 14:45 Method Of Arrival: Ambulatory [facility] 14:45 Acuity: RICH 3 nj1 Triage Assessment: 17:00 General: Appears in no apparent distress. Behavior is appropriate for age. bp Historical: - Allergies: 14:47 PENICILLINS; nj1 - PMHx: 14:47 Anemia; nj1 - Immunization history:: Client reports having NOT received the Covid vaccine. - Social history:: Smoking status: Patient reports the use of cigarette tobacco products, smokes one-half pack cigarettes per day. Screenin:32 [facility] ED Fall Risk Assessment (Adult) History of falling in the last 3 months, ld1 including since admission No falls in past 3 months (0 pts). Abuse screen: Denies threats or abuse. Denies injuries from another. Nutritional screening: No deficits noted. Tuberculosis screening: No symptoms or risk factors identified. Assessment: 15:32 General: Appears in no apparent distress. comfortable, Behavior is calm, cooperative, ld1 appropriate for age. Pain: Complains of pain in abdomen Pain does not radiate. Pain currently is 7 out of 10 on a pain scale. Quality of pain is described as throbbing. Neuro: Level of Consciousness is awake, alert, obeys commands, Oriented to person, place, time, situation, Reports. Cardiovascular: Capillary refill < 3 seconds Patient's skin is warm and dry. Respiratory: Airway is patent Respiratory effort is even, unlabored. GI: Abdomen is round non-distended, Bowel sounds present X 4 quads. Abd is soft Abdomen is tender to palpation Reports lower abdominal pain, upper abdominal pain, diarrhea, nausea. : No signs and/or symptoms were reported regarding the genitourinary system. EENT: No signs and/or symptoms were reported regarding the EENT system. Derm: No signs and/or symptoms reported regarding the dermatologic system. Musculoskeletal: No signs and/or symptoms reported regarding the musculoskeletal system. 17:50 Reassessment: Patient appears in no apparent distress at this time. Patient is alert, ld1 oriented x 3, equal unlabored respirations, skin warm/dry/pink. Vital Signs: 14:45 BP 127 / 92; Pulse 88; Resp 17; Temp 99(TE); Pulse Ox 100% ; Weight 86.18 kg; Height 5 nj1 ft. 4 in. ; Pain 3/10; 16:23 BP 131 / 90; Pulse 86; Resp 18; Pulse Ox 99% on R/A; ld1 17:49 BP 133 / 90; Pulse 65; Resp 16; Pulse Ox 99% ; ld1 14:45 Body Mass Index 32.61 (86.18 kg, 162.56 cm) nj1 14:45 Pain Scale: Adult [facility] ED Course: 14:23 Patient arrived in ED. ts1 14:32 Josselyn Iglesias FNP-C is PHCP. kb 14:32 Valentin Medina MD is Attending Physician. kb 14:47 Triage completed. nj1 14:47 Arm band placed on right wrist. nj1 15:20 Nolan Garcia, DORA is Primary Nurse. bp 15:32 Patient has correct armband on for positive identification. Placed in gown. Bed in low ld1 position. Call light in reach. Side rails up X2. hospital superintendent on. Pulse ox on. NIBP on. Door closed. Noise minimized. Warm blanket given. 15:32 No provider procedures requiring assistance completed. Inserted saline lock: 20 gauge ld1 in left antecubital area, using aseptic technique. Blood collected. 15:35 Urinalysis w/ reflexes Sent. ld1 15:35 Test, Urine Sent. ld1 15:35 Lipase Sent. ld1 15:35 CMP Sent. ld1 15:35 CBC with Diff Sent. ld1 17:13 CT Abd/Pelvis - PO and IV Contrast In Process Unspecified. EDMS 18:46 IV discontinued. bp Administered Medications: 17:15 Drug: NS 0.9% IV 1000 ml IV at 1000 ml once Route: IV; Rate: 1000 ml; Site: left ld1 antecubital; 17:15 Drug: Ondansetron IVP 4 mg IVP once; over 2 minutes Route: IVP; Site: left antecubital; ld1 18:26 Follow up: Response: No adverse reaction bp 17:15 Drug: Ketorolac IVP 15 mg IVP once Route: IVP; Site: left antecubital; ld1 18:26 Follow up: Response: No adverse reaction bp 18:26 Drug: Dulcolax PO Delayed Release Tablet 5 mg PO once Route: PO; bp Medication: 15:32 VIS not applicable for this client. ld1 Outcome: 18:32 Discharge ordered by MD. kb 18:46 Patient left the ED. ld1 18:46 Discharged to home ambulatory, bp 18:46 Condition: stable 18:46 Discharge instructions given to patient, Instructed on discharge instructions, follow up and referral plans. Demonstrated understanding of instructions, follow-up care, Signatures: Dispatcher [employer] EDMS Josselyn Iglesias, RADHA-C MECHANICAL TECHNICAL SERVICE SPECIALIST-Ckb Nolan Garcia RN RN Danielle Granado RN RN ld1 Mandie Johnson RN RN nj1 Mikala Lennon, ELIER PAS ts1 Corrections: (The following items were deleted from the chart) 14:47 14:47 PMHx: IUD; nj1 nj1
--- NOTE | 2023-03-04 18:32 | EDPHYS ---
Physician Documentation [facility] Name: Melissa Iglesias Age: 27 yrs Sex: Female : 1995 Arrival Date: 03/04/2023 Time: 14:20 Bed 6 Private MD: NOHEMI Physician Valentin Medina HPI: 03/04 18:32 This 27 yrs old Female presents to ER via Ambulatory with complaints of Constipation, kb Nausea/Vomiting. 18:32 Pt is a 27 year old female who presents for constipation for 3 days, nausea and kb vomiting that started today. States she has discomfort in her abd, but not pain. Denies fever. Historical: - Allergies: 14:47 PENICILLINS; nj1 - PMHx: 14:47 Anemia; nj1 - Immunization history:: Client reports having NOT received the Covid vaccine. - Social history:: Smoking status: Patient reports the use of cigarette tobacco products, smokes one-half pack cigarettes per day. ROS: 18:33 Constitutional: Negative for fever, chills, and weight loss, kb 18:33 Abdomen/GI: Positive for nausea and vomiting, constipation, 18:33 All other systems are negative, Exam: 18:33 Constitutional: This is a well developed, well nourished patient who is awake, alert, kb and in no acute distress. Head/Face: Normocephalic, atraumatic. ENT: Moist Mucous membranes Cardiovascular: Regular rate Respiratory: Respirations even and unlabored. No increased work of breathing. Talking in full sentences Abdomen/GI: Soft, non-tender. No distention Skin: Warm, dry with normal turgor. Normal color. MS/ Extremity: Pulses equal, no cyanosis. Neurovascular intact. Full, normal range of motion. Neuro: Awake and alert, GCS 15, oriented to person, place, time, and situation. Moves all extremities. Normal gait. Vital Signs: 14:45 BP 127 / 92; Pulse 88; Resp 17; Temp 99(TE); Pulse Ox 100% ; Weight 86.18 kg; Height 5 nj1 ft. 4 in. ; Pain 3/10; 16:23 BP 131 / 90; Pulse 86; Resp 18; Pulse Ox 99% on R/A; ld1 17:49 BP 133 / 90; Pulse 65; Resp 16; Pulse Ox 99% ; ld1 14:45 Body Mass Index 32.61 (86.18 kg, 162.56 cm) nj1 14:45 Pain Scale: Adult nj1 MDM: 14:32 Patient medically screened. kb 18:33 Differential diagnosis: constipation, bowel obstruction, diverticulitis. Data reviewed: kb vital signs, nurses notes. Counseling: I had a detailed discussion with the patient and/or guardian regarding the historical points, exam findings, and any diagnostic results supporting the discharge/admit diagnosis, lab results, radiology results, the need for outpatient follow up, a family practitioner, to return to the emergency department if symptoms worsen or persist or if there are any questions or concerns that arise at home. ED course: Pt has no urinary symptoms, denies difficulty urinating. Denies flank pain. 03/04 14:51 Order name: CBC with Diff; Complete Time: 15:49 kb 03/04 14:51 Order name: CMP; Complete Time: 15:59 kb 03/04 14:51 Order name: Lipase; Complete Time: 15:59 kb 03/04 14:51 Order name: Test, Urine; Complete Time: 15:49 kb 03/04 14:51 Order name: Urinalysis w/ reflexes; Complete Time: 15:49 kb 03/04 14:51 Order name: CT Abd/Pelvis - PO and IV Contrast; Complete Time: 18:01 kb 03/04 14:51 Order name: IV Saline Lock; Complete Time: 15:35 kb 03/04 14:51 Order name: Labs collected and sent; Complete Time: 15:35 kb Administered Medications: 17:15 Drug: NS 0.9% IV 1000 ml IV at 1000 ml once Route: IV; Rate: 1000 ml; Site: left ld1 antecubital; 17:15 Drug: Ondansetron IVP 4 mg IVP once; over 2 minutes Route: IVP; Site: left antecubital; ld1 18:26 Follow up: Response: No adverse reaction bp 17:15 Drug: Ketorolac IVP 15 mg IVP once Route: IVP; Site: left antecubital; ld1 18:26 Follow up: Response: No adverse reaction bp 18:26 Drug: Dulcolax PO Delayed Release Tablet 5 mg PO once Route: PO; bp Disposition Summary: 03/04/23 18:32 Discharge Ordered Notes: Location: Home kb Condition: Stable kb Diagnosis - Constipation kb Followup: kb - With: Emergency Department - When: As needed - Reason: Worsening of condition Followup: kb - With: Private Physician - When: 2 - 3 days - Reason: Recheck today's complaints, Continuance of care, Re-evaluation by your physician Discharge Instructions: - Discharge Summary Sheet kb - Constipation, Adult, [id number] kb - Nausea and Vomiting, Adult, [id number] kb Forms: - Medication Reconciliation Form kb - Thank You Letter kb - Antibiotic Education kb - Prescription Opioid Use kb - Patient Portal Instructions kb - Leadership Thank You Letter kb Signatures: Dispatcher [employer] EDMA Josselyn Iglesias, HOUSE CALLS NURSE PRACTITIONER-C HOUSE CALLS NURSE PRACTITIONER-Mellob Nolan Garcia, RN RN Danielle Granado, RN RN ld1 Mandie Johnson RN RN nj1 Corrections: (The following items were deleted from the chart) 14:47 14:47 PMHx: IUD; nj1 nj1
[2023-03-04 21:26] VITALS: BP 133/90; TEMP 99; O2SAT 99
== END ==
LOC: ER 14:20
DX: K59.00 Constipation, unspecified (principal); R11.2 Nausea with vomiting, unspecified; F17.210 Nicotine dependence, cigarettes, uncomplicated; Z88.0 Allergy status to penicillin; Z28.310 Unvaccinated for COVID-19
CPT/HCPCS: 85025; 81001; 36415; 81025; 83690; 80053; 74177; 96375; 96374; 99285; Q9967; J2405; J7030

== ENCOUNTER → 2023-05-16 | Emergency (ER) | payer OTHER ==
--- OUTSIDE RECORDS SUMMARY | 2023-05-16 11:40 | XMS REPORT | Continuity of Care Document ---
Author Name Unknown Address [address] [facility] [address] [place] [address] [facility] thconnect Address [address] [facility] [place] [address] Care Team Providers Care Manager Educational Name Role Phone PCP, PATIENT DOES NOT HAVE A Primary Care Physic chelsea Unavailable CANDI BARRETT Attending Clinician CANDI Lou Attending Clinician Dayday ricardo Payers Payer Name Policy Type Policy Number Effective Date Expirati on Date Source [place] [employer] [id number] 2022 00:00:00 Allergies, Adverse Reactions, Alerts Allergy Name Allergy Type Status Severity Reaction(s) Onset Date Inactive Date Treating Clinician Comments Source PENICILL IN DRUG INGREDI Active Other-Cmnt 2017-02 00:00: 00 [facility] Encounters Start Date/Time End Date/Time Encounter Type Admission Type Attending Clinicians Care Facility Care Department Encounter ID Source 2022-09-01 10:00:00 2022-09-01 10:00:00 Outpatient R CANDI BARRETT [facility] [id number] [facility]
--- NOTE | 2023-05-16 12:15 | ER ---
Nurse's Notes [facility] Name: Melissa Iglesias Age: 27 yrs Sex: Female : 1995 Arrival Date: 05/16/2023 Time: 11:37 Bed 11 Private MD: Diagnosis: Dental infection Presentation: 05/15 11:49 Coronavirus screen: Client denies travel out of the [place] in the last 14 days. At this ll1 time, the client does not indicate any symptoms associated with coronavirus-19. Ebola Screen: Patient denies travel to an Ebola-affected area in the 21 days before illness onset. Initial Sepsis Screen: Does the patient meet any 2 criteria? No. Patient's initial sepsis screen is negative. Does the patient have a suspected source of infection? No. Patient's initial sepsis screen is negative. Initial Sepsis Screen: Does the patient meet any 2 criteria?. Risk Assessment: Do you want to hurt yourself or someone else? Patient reports no desire to harm self or others. Onset of symptoms was May 09, 2023. 11:49 Method Of Arrival: Ambulatory ll1 11:49 Acuity: RICH 4 ll1 12:01 Chief complaint: Patient states: L sided ear/jaw pain for 1 week getting worse each ll1 day. No fevers. Triage Assessment: 12:01 General: Appears uncomfortable, Behavior is calm, cooperative, appropriate for age. ll1 Pain: Complains of pain in L side of head Pain currently is 2 out of 10 on a pain scale. Quality of pain is described as. EENT: Reports pain in L side of head. Neuro: Reports headache. 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 - Social history:: Smoking status: Patient denies any tobacco usage or history of. Screenin:15 [facility] ED Fall Risk Assessment (Adult) History of falling in the last 3 months, tl4 including since admission No falls in past 3 months (0 pts) Confusion or Disorientation No (0 pts) Intoxicated or Sedated No (0 pts) Impaired Gait No (0 pts) Mobility Assist Device Used No (0 pt) Altered Elimination No (0 pt) Score/Fall Risk Level 0 - 2 = Low Risk Oriented to surroundings, Maintained a safe environment, Educated pt \T\ family on fall prevention, incl call for assistance when getting out of bed, Assessed \T\ reinforced patient's understanding of fall precautions, Hourly rounding (assess needs \T\ fall precautionary measures) done, Used ambulatory aids as needed (educated on \T\ assisted with), Used gait belt as appropriate. Abuse screen: Denies threats or abuse. Denies injuries from another. Nutritional screening: No deficits noted. Tuberculosis screening: No symptoms or risk factors identified. Assessment: 12:12 General: Appears in no apparent distress. Behavior is calm, cooperative. Pain: tl4 Complains of pain in face. Neuro: Level of Consciousness is awake, alert, obeys commands, Oriented to person, place, time, situation, Gait is steady, Speech is normal, Facial symmetry appears normal. Cardiovascular: Capillary refill < 3 seconds Patient's skin is warm and dry. Respiratory: Airway is patent Respiratory effort is even, unlabored, Respiratory pattern is regular, symmetrical, Breath sounds are clear bilaterally. GI: No deficits noted. No signs and/or symptoms were reported involving the gastrointestinal system. : No deficits noted. No signs and/or symptoms were reported regarding the genitourinary system. EENT: Reports pain in left ear and left zygomatic area. Derm: No deficits noted. No signs and/or symptoms reported regarding the dermatologic system. Musculoskeletal: No deficits noted. No signs and/or symptoms reported regarding the musculoskeletal system. Vital Signs: 11:49 BP 113 / 68; Pulse 77; Resp 16; Temp 97.8; Pulse Ox 97% ; Weight 90.72 kg; Height 5 ft. ll1 4 in. ; Pain 6/10; 12:17 BP 112 / 70; Pulse 76; Resp 18; Temp 97.9(O); Pulse Ox 98% ; Pain 10/10; tl4 11:49 Body Mass Index 34.33 (90.72 kg, 162.56 cm) ll1 11:49 Pain Scale: Adult ll1 12:17 Pain Scale: Adult tl4 ED Course: 11:45 Patient arrived in ED. mg5 11:50 Triage completed. ll1 12:00 Dre Estes, RN is Primary Nurse. tl4 12:01 Arm band placed on Patient placed in an exam room, on a stretcher. ll1 12:06 Varsha Navarro MD is Attending Physician. sp3 12:15 Patient has correct armband on for positive identification. Bed in low position. Call tl4 light in reach. Side rails up X 1. Provided Education on: ED process. Door closed. Noise minimized. Moved to private room. 12:15 No provider procedures requiring assistance completed. Patient did not have IV access tl4 during this emergency room visit. Administered Medications: No medications were administered Medication: 12:14 VIS not applicable for this client. tl4 Outcome: 12:14 Discharge ordered by MD. sp3 12:18 Discharged to home ambulatory, tl4 12:18 Condition: stable 12:18 Discharge instructions given to patient, Instructed on discharge instructions, follow up and referral plans. medication usage, Demonstrated understanding of instructions, follow-up care, medications, Prescriptions given X 1, 12:24 Patient left the ED. tl4 Signatures: Agnes John, RN RN ll1 Varsha Navarro MD MD sp3 Soila Mcdonald mg5 Dre Estes, RN RN tl4
--- NOTE | 2023-05-16 12:15 | EDPHYS ---
Physician Documentation [facility] Name: Melissa Iglesias Age: 27 yrs Sex: Female : 1995 Arrival Date: 05/16/2023 Time: 11:37 Bed 11 Private MD: ED Physician Varsha Navarro HPI: 05/15 12:11 This 27 yrs old Female presents to ER via Ambulatory with complaints of FACIAL PAIN. sp3 12:11 27-year-old female with a history of anemia now presents with left-sided jaw pain sp3 originating initially from the dentition and now patient states it is gone up into her TMJ and temporal bone area. She denies any fever, right-sided facial pain, neck pain, difficulty breathing, difficulty swallowing, chest pain, shortness of breath, or any other signs or symptoms on ROS at this time. Patient states she is having a hard time finding a dentist in her network but is still continuing to try.. 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 - Social history:: Smoking status: Patient denies any tobacco usage or history of. ROS: 12:11 Constitutional: Negative for fever, chills, and weight loss, Eyes: Negative for injury, sp3 pain, redness, and discharge, Neck: Negative for injury, pain, and swelling, Cardiovascular: Negative for chest pain, palpitations, and edema, Respiratory: Negative for shortness of breath, cough, wheezing, and pleuritic chest pain, Abdomen/GI: Negative for abdominal pain, nausea, vomiting, diarrhea, and constipation, Back: Negative for injury and pain, MS/Extremity: Negative for injury and deformity, Skin: Negative for injury, rash, and discoloration, Neuro: Negative for headache, weakness, numbness, tingling, and seizure, Psych: Negative for depression, anxiety, suicide ideation, homicidal ideation, and hallucinations, Allergy/Immunology: Negative for hives, rash, and allergies, Endocrine: Negative for neck swelling, polydipsia, polyuria, polyphagia, and marked weight changes, 12:11 All other systems are negative, Exam: 12:12 Constitutional: This is a well developed, well nourished patient who is awake, alert, sp3 and in no acute distress. Eyes: Pupils equal round and reactive to light, extra-ocular motions intact. Lids and lashes normal. Conjunctiva and sclera are non-icteric and not injected. Cornea within normal limits. Periorbital areas with no swelling, redness, or edema. ENT: Nares patent. No nasal discharge, no septal abnormalities noted. External auditory canals are clear. Oropharynx with no redness, swelling, or masses, exudates, or evidence of obstruction, uvula midline. Mucous membranes moist. Neck: Trachea midline, no thyromegaly or masses palpated, and no cervical lymphadenopathy. Supple, full range of motion without nuchal rigidity, or vertebral point tenderness. No Meningismus. Chest/axilla: Normal chest wall appearance and motion. Nontender with no deformity. No lesions are appreciated. Cardiovascular: Regular rate and rhythm with a normal S1 and S2. No gallops, murmurs, or rubs. Normal PMI, no JVD. No pulse deficits. Respiratory: Lungs have equal breath sounds bilaterally, clear to auscultation and percussion. No rales, rhonchi or wheezes noted. No increased work of breathing, no retractions or nasal flaring. Abdomen/GI: Soft, non-tender, with normal bowel sounds. No distension or tympany. No guarding or rebound. No evidence of tenderness throughout. Back: No spinal tenderness. No costovertebral tenderness. Full range of motion. Skin: Warm, dry with normal turgor. Normal color with no rashes, no lesions, and no evidence of cellulitis. MS/ Extremity: Pulses equal, no cyanosis. Neurovascular intact. Full, normal range of motion. Neuro: Awake and alert, GCS 15, oriented to person, place, time, and situation. Cranial nerves II-XII grossly intact. Motor strength 5/5 in all extremities. Sensory grossly intact. Cerebellar exam normal. Normal gait. Psych: Awake, alert, with orientation to person, place and time. Behavior, mood, and affect are within normal limits. 12:12 Head/face: Left-sided swelling mildly in the mandibular area. Poor dentition noted.. Vital Signs: 11:49 BP 113 / 68; Pulse 77; Resp 16; Temp 97.8; Pulse Ox 97% ; Weight 90.72 kg; Height 5 ft. ll1 4 in. ; Pain 6/10; 12:17 BP 112 / 70; Pulse 76; Resp 18; Temp 97.9(O); Pulse Ox 98% ; Pain 10/10; tl4 11:49 Body Mass Index 34.33 (90.72 kg, 162.56 cm) ll1 11:49 Pain Scale: Adult ll1 12:17 Pain Scale: Adult tl4 MDM: 12:09 Patient medically screened. sp3 12:13 Data reviewed: vital signs, nurses notes. ED course: 27-year-old female with probable sp3 dental originating infection. Patient is allergic to penicillin. Will place on clindamycin and she can follow-up with her doctor and/or dentist when she establishes one. Patient understands need for establishment urgently.. Administered Medications: No medications were administered Disposition Summary: 05/16/23 12:14 Discharge Ordered Notes: Location: Home sp3 Condition: Stable sp3 Diagnosis - Dental infection sp3 Followup: sp3 - With: Private Physician - When: Upon discharge from the Emergency Department - Reason: Continuance of care Discharge Instructions: - Discharge Summary Sheet sp3 - Dental Abscess sp3 Forms: - Medication Reconciliation Form sp3 - Thank You Letter sp3 - Antibiotic Education sp3 - Prescription Opioid Use sp3 - Patient Portal Instructions sp3 - Leadership Thank You Letter sp3 Prescriptions: - Clindamycin HCl 300 mg Oral Capsule - take 1 capsule ORAL route every 6 hours for 10 days; 40 capsule; Refills: 0, sp3 Product Selection Permitted Signatures: Agnes John RN RN ll1 Varsha Navarro MD MD sp3
[2023-05-16 13:02] VITALS: BP 112/70; TEMP 97.9; O2SAT 98
== END ==
LOC: ER 11:37
DX: K04.7 Periapical abscess without sinus (principal); Z88.0 Allergy status to penicillin

== ENCOUNTER 2023-06-21 19:24 | Emergency (ER) | payer OTHER ==
--- OUTSIDE RECORDS SUMMARY | 2023-06-21 19:26 | XMS REPORT | Continuity of Care Document ---
Author Name Unknown Address [address] [facility] [address] [facility] [address] [place] [address] Organization [facility] thconnect Address [address] 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 Name Role Phone PCP, PATIENT DOES NOT HAVE A Primary Care Physic chelsea CANDI Lorenzo Attending Clinician CANDI Lou Attending Clinician Dayday ricardo Payers Payer Name Policy Type Policy Number Effective Date Expirati on Date Source [place] [employer] [id number] 2022 00:00:00 Allergies, Adverse Reactions, Alerts Allergy Name Allergy Type Status Severity Reaction(s) Onset Date Inactive Date Treating Clinician Comments Source PENICILL IN DRUG INGREDI Active Other-Cmnt 2017-02 00:00: 00 [facility] Encounters Start Date/Time End Date/Time Encounter Type Admission Type Attending Clinicians Care Facility Care Department Encounter ID Source 2022-09-01 10:00:00 2022-09-01 10:00:00 Outpatient R CANDI BARRETT [facility] [id number] [facility]
[2023-06-21 20:03] LABS: Absolute Basophils 0.1 K/uL (0-0.5); Absolute Eosinophils 0.1 K/uL (0-0.5); Absolute Lymphocytes (CBC) 2.9 K/uL (0.7-4.9); Absolute Monocytes 0.7 K/uL (0.1-1.3); Absolute Neutrophil 10.2 K/uL (1.8-8.0); Basophils % 0.4 % (0-1.3); Eosinophils % 0.8 % (0-4.4); Hematocrit 40.7 % (36.0-45.0); Hemoglobin 13.8 g/dL (12.0-15.0); Lymphocytes % 20.6 % (15.3-44.8); MCH 30.5 pg (27.0-35.0); MCHC 33.7 g/dL (32.0-36.0); MCV 90.3 fL (80-100); MPV 7.5 fL (7.6-11.3); Monocytes % 5.4 % (3.3-12.3); Neutrophils % 72.8 % (41.7-73.7); Platelets 320 thou/uL (152-406); RBC Red Blood Cell Count 4.51 M/uL (3.86-4.86); Red Cell Distribution Width 13.2 % (12.1-15.2)
[2023-06-21 20:08] LABS: Specific Gravity 1.034 (1.005-1.030)
[2023-06-21 20:28] LABS: Specific Gravity > 1.030 (1.005-1.030); Urine Bacteria <20 /HPF (<20); Urine Bilirubin NEGATIVE (Negative); Urine Blood Negative (Negative); Urine Clarity Extremely Turbid (Clear); Urine Color Yellow (Yellow); Urine Culture Reflex Order NOT NEEDED; Urine Glucose NEGATIVE (Negative); Urine Ketones 2+ (Negative); Urine Microscopic Reflex YN ORDER UMIC; Urine Mucus 4+ /HPF (None Seen); Urine Nitrite NEGATIVE (Negative); Urine Protein 1+ (Negative); Urine Urobilinogen 1+ (Normal); Urine WBC <5 /HPF (<5); Urine Yeast (Budding) Occasional /HPF (None Seen)
--- NOTE | 2023-06-21 20:28 | RAD REPORT ---
EXAM DESCRIPTION: US - Transvaginal OB - 06/21/2023 8:13 pm CLINICAL HISTORY: Abd cramping, ;Vaginal bleeding COMPARISON: OB Complete dated 04/25/2019 FINDINGS: An oblong gestational sac is present in the fundal endometrium. Mean sac diameter is 8 mm corresponding to 5 weeks 3 days gestational age. No yolk sac seen. No embryo yet seen. Left ovary obscured by bowel gas. The right ovary appears normal with normal blood flow. IMPRESSION: Single gestational sac in the fundal endometrium with estimated gestational age of 5 wee ks 3 days. No embryo or yolk sac seen. Recommend follow-up serial HCG levels as well as a follow-up p elvic sonogram 12-14 days.
[2023-06-21 21:00] LABS: Anion Gap 6.5 mEq/L (5.0-15.0); Potassium 3.5 mEq/L (3.5-5.1)
[2023-06-21] MEDS ORDERED: NA CHLORIDE 0.9% 1,000 ML ONE (21:00)
[2023-06-21] MEDS ORDERED: ONDANSETRON 4 MG/2 ML VIAL ONE (21:00)
--- NOTE | 2023-06-21 21:20 | ER ---
Nurse's Notes [facility] Name: Melissa Iglesias Age: 27 yrs Sex: Female : 1995 Arrival Date: 06/21/2023 Time: 19:24 Bed 20 Private MD: Diagnosis: Encounter for supervision of normal first , first trimester Presentation: 06/20 19:27 Chief complaint: Patient states: TOOK HOME PREG TEST AND IT WAS POSITIVE 1 WK AGO. NOW jj7 HAVING LIGHT SPOTTING WHEN SHE WIPES. Coronavirus screen: At this time, the client does not indicate any symptoms associated with coronavirus-19. Ebola Screen: No symptoms or risks identified at this time. Initial Sepsis Screen: Does the patient meet any 2 criteria? HR > 90 bpm. Yes Does the patient have a suspected source of infection? No. Patient's initial sepsis screen is negative. Risk Assessment: Do you want to hurt yourself or someone else? Patient reports no desire to harm self or others. Onset of symptoms was June 21, 2023. 19:27 Method Of Arrival: Ambulatory [facility] 19:27 Acuity: RICH 3 jj7 Triage Assessment: 19:32 General: Appears in no apparent distress. comfortable, Behavior is calm, cooperative, jj7 appropriate for age. Pain: Denies pain. : Reports vaginal bleeding that is spotty. 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 Flu vaccine is not up to date. - Infectious Disease History:: Denies. - Social history:: Smoking status: Patient reports the use of cigarette tobacco products, smokes one-half pack cigarettes per day, Patient uses alcohol, occasionally. street drugs, marijuana. Screenin:34 [facility] ED Fall Risk Assessment (Adult) History of falling in the last 3 months, jj7 including since admission No falls in past 3 months (0 pts) Confusion or Disorientation No (0 pts) Intoxicated or Sedated No (0 pts) Impaired Gait No (0 pts) Mobility Assist Device Used No (0 pt) Altered Elimination No (0 pt) Score/Fall Risk Level 0 - 2 = Low Risk Oriented to surroundings, Maintained a safe environment, Educated pt \T\ family on fall prevention, incl call for assistance when getting out of bed. Abuse screen: Denies threats or abuse. Nutritional screening: No deficits noted. Tuberculosis screening: No symptoms or risk factors identified. Assessment: 19:34 Obstetrical Assessment: General assessment: awake and alert, skin warm and dry. jj7 Reassessment: SEE TRIAGE ASSESSEMENT. 19:57 General: Appears comfortable, Behavior is calm, cooperative. Pain: Complains of pain in rv abdomen. Neuro: Level of Consciousness is awake, alert, obeys commands, Oriented to person, place, time, situation. Cardiovascular: Capillary refill < 3 seconds Patient's skin is warm and dry. Respiratory: Airway is patent Respiratory effort is even, unlabored. GI: Reports lower abdominal pain. : Reports vaginal bleeding that is. Vital Signs: 19:27 BP 119 / 87; Pulse 117; Resp 18; Temp 98.2; Pulse Ox 100% ; Weight 90.72 kg; Height 5 jj7 ft. 4 in. ; 21:06 BP 107 / 81; Pulse 81; Resp 15; Pulse Ox 100% on R/A; rv 19:27 Body Mass Index 34.33 (90.72 kg, 162.56 cm) jj7 [place] Coma Score: 21:25 Eye Response: spontaneous(4). Motor Response: obeys commands(6). Verbal Response: rv oriented(5). Total: 15. ED Course: 19:26 Patient arrived in ED. mr 19:27 Trinity Bauer PA-C is PHCP. sb4 19:27 Madison Baer MD is Attending Physician. sb4 19:32 Triage completed. jj7 19:32 Arm band placed on right wrist. jj7 19:34 Patient has correct armband on for positive identification. Call light in reach. Adult jj7 w/ patient. Provided Education on: USE OF CALL BORGES. Warm blanket given. 19:34 No provider procedures requiring assistance completed. jj7 19:52 Basic Metabolic Panel Sent. rv 19:52 CBC with Diff Sent. rv 19:52 Test, Urine Sent. rv 19:52 Quantitative Hcg Sent. rv 19:52 Urinalysis w/ reflexes Sent. rv 19:56 Kelechi Meeks, RN is Primary Nurse. rv 20:00 Inserted saline lock: 20 gauge in left antecubital area, using aseptic technique. Blood rv collected. 20:00 Initial lab(s) drawn, by me, sent to lab. rv 20:01 Basic Metabolic Panel Sent. rv 20:01 CBC with Diff Sent. rv 20:01 Test, Urine Sent. rv 20:01 Quantitative Hcg Sent. rv 20:01 Urinalysis w/ reflexes Sent. rv 20:15 US Transvaginal Ob In Process Unspecified. EDMS 21:26 IV discontinued, intact, bleeding controlled, No redness/swelling at site. Pressure rv dressing applied. Administered Medications: 21:04 Drug: Ondansetron IVP 4 mg IVP once; over 2 minutes Route: IVP; Site: left antecubital; rv 21:25 Follow up: Response: No adverse reaction; Marked relief of symptoms rv 21:04 Drug: NS 0.9% IV 1000 ml IV at 1 bolus Per protocol; 1000 mL bolus Route: IV; Rate: 1 rv bolus; Site: left antecubital; 21:25 Follow up: IV Status: Completed infusion; IV Intake: 500ml rv Medication: 19:34 VIS not applicable for this client. jj7 Intake: 21:25 IV: 500ml; Total: 500ml. rv Outcome: 21:20 Discharge ordered by . sb4 21:26 Discharged to home ambulatory, with friend, rv 21:26 Condition: improved 21:26 Discharge instructions given to patient, Instructed on discharge instructions, follow up and referral plans. Demonstrated understanding of instructions, follow-up care, 21:26 Patient left the ED. rv Signatures: Dispatcher [employer] EDKY Maggy Eastman, Reg Reg mr Kelechi Meeks, RN RN Randy Stearns RN RN jjTrinity Pineda PA-C PA-C sb4
--- NOTE | 2023-06-21 21:21 | EDPHYS ---
Physician Documentation [facility] Name: Melissa Iglesias Age: 27 yrs Sex: Female : 1995 Arrival Date: 06/21/2023 Time: 19:24 Bed 20 Private MD: ED Physician Madison Baer HPI: 06/20 19:45 This 27 yrs old Female presents to ER via Ambulatory with complaints of Vaginal sb4 Bleeding, + Preg <12wks, Abdominal Cramping. 19:45 The patient presents to the emergency department with abdominal pain, of the suprapubic sb4 area, vaginal bleeding, described as spotting. The estimated gestational age is 6 weeks. course: care: none, Leakage of Fluid: none appreciated, Ultrasound: the patient has not had an ultrasound. Previous pregnancies: in previous pregnancies patient has had vaginal delivery. Associated signs and symptoms: Pertinent negatives: ruptured membranes. The patient has not experienced similar symptoms in the past. The patient has not recently seen a physician. 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 Flu vaccine is not up to date. - Infectious Disease History:: Denies. - Social history:: Smoking status: Patient reports the use of cigarette tobacco products, smokes one-half pack cigarettes per day, Patient uses alcohol, occasionally. street drugs, marijuana. ROS: 19:45 Constitutional: Negative for fever, chills, and weight loss, sb4 19:45 : Positive for vaginal bleeding, missed period, 19:45 : Positive for pelvic pain, 19:45 All other systems are negative, Exam: 19:45 Constitutional: This is a well developed, well nourished patient who is awake, alert, sb4 and in no acute distress. Head/Face: Normocephalic, atraumatic. Eyes: Extra-ocular motions intact. Periorbital areas with no swelling, redness, or edema. ENT: Mucous membranes moist. Cardiovascular: Regular rate and rhythm with a normal S1 and S2. Respiratory: Lungs have equal breath sounds bilaterally, clear to auscultation and percussion. No rales, rhonchi or wheezes noted. No increased work of breathing, no retractions or nasal flaring. Abdomen/GI: Soft, non-tender, no distension. Skin: Warm, dry with normal turgor. Normal color with no rashes, no lesions, and no evidence of cellulitis. MS/ Extremity: Pulses equal, no cyanosis. Neurovascular intact. Full, normal range of motion. Vital Signs: 19:27 BP 119 / 87; Pulse 117; Resp 18; Temp 98.2; Pulse Ox 100% ; Weight 90.72 kg; Height 5 jj7 ft. 4 in. ; 21:06 BP 107 / 81; Pulse 81; Resp 15; Pulse Ox 100% on R/A; rv 19:27 Body Mass Index 34.33 (90.72 kg, 162.56 cm) jj7 [place] Coma Score: 21:25 Eye Response: spontaneous(4). Motor Response: obeys commands(6). Verbal Response: rv oriented(5). Total: 15. MDM: 19:37 Patient medically screened. sb4 21:19 Data reviewed: vital signs, nurses notes, lab test result(s), radiologic studies, and sb4 as a result, I will discharge patient. Counseling: I had a detailed discussion with the patient and/or guardian regarding the historical points, exam findings, and any diagnostic results supporting the discharge/admit diagnosis, lab results, radiology results, the need for outpatient follow up, an OB/Gyne specialist, to return to the emergency department if symptoms worsen or persist or if there are any questions or concerns that arise at home. 06/20 19:33 Order name: Basic Metabolic Panel; Complete Time: 21:00 sb4 06/20 19:33 Order name: CBC with Diff; Complete Time: 20:05 sb4 06/20 19:33 Order name: Test, Urine; Complete Time: 20:10 sb4 06/20 19:33 Order name: Quantitative Hcg; Complete Time: 21:00 sb4 06/20 19:33 Order name: Urinalysis w/ reflexes; Complete Time: 20:31 sb4 06/20 19:33 Order name: US Transvaginal Ob; Complete Time: 20:31 sb4 06/20 19:33 Order name: IV Saline Lock; Complete Time: 19:52 sb4 06/20 19:33 Order name: Labs collected and sent; Complete Time: 19:52 sb4 Administered Medications: 21:04 Drug: Ondansetron IVP 4 mg IVP once; over 2 minutes Route: IVP; Site: left antecubital; rv 21:25 Follow up: Response: No adverse reaction; Marked relief of symptoms rv 21:04 Drug: NS 0.9% IV 1000 ml IV at 1 bolus Per protocol; 1000 mL bolus Route: IV; Rate: 1 rv bolus; Site: left antecubital; 21:25 Follow up: IV Status: Completed infusion; IV Intake: 500ml rv Disposition: 06/21 09:20 STAFF ATTESTATION: The patient's history, exam findings, diagnostics and a summary of sd2 any interventions or procedures was reviewed in detail with the ED MAGALY. I confirm the diagnosis as documented by the MAGALY and I agree with the care plan articulated in the disposition section with regards to our discussion of the patient's case. Madison Baer MD. Disposition Summary: 06/21/23 21:20 Discharge Ordered Notes: Location: Home sb4 Problem: new sb4 Symptoms: are unchanged sb4 Condition: Stable sb4 Diagnosis - Encounter for supervision of normal first , first trimester sb4 Followup: sb4 - With: Private Physician - When: 1 week - Reason: Recheck today's complaints, Re-evaluation by your physician Discharge Instructions: - Discharge Summary Sheet sb4 - First Trimester of , Becq-se-Yftr sb4 - Abdominal Pain During , Qdmq-ub-Urhv sb4 Forms: - Patient Portal Instructions sb4 - Leadership Thank You Letter sb4 Signatures: Dispatcher [employer] Kelechi Cervantes RN RN rv Dunlop, Stephanie, MD MD sd2 Johnson, Juwairiyah, RN RN Trinity Che PA-C PATommy sb4 Corrections: (The following items were deleted from the chart) 06/20 19:34 19:34 BASIC METABOLIC PANEL+C.LAB.BRZ ordered. EDMS EDMS 19:34 19:34 CBC+H.LAB.BRZ ordered. EDMS EDMS :34 19:34 Test, Urine+UC.LAB.BRZ ordered. EDMS EDMS :34 19:34 QUANTITATIVE HCG+C.LAB.BRZ ordered. EDMS EDMS :34 19:34 Urinalysis+U.LAB.BRZ ordered. EDMS EDMS :34 19:34 Transvaginal Ob+US.RAD.BRZ ordered. EDMS EDMS
[2023-06-21 22:30] VITALS: BP 107/81; TEMP 98.2; O2SAT 100
== END 2023-06-21 21:26 | disposition home or self-care (01) ==
LOC: ER 19:24
DX: O26.891 Other specified pregnancy related conditions, first trimester (principal); O99.331 Smoking (tobacco) complicating pregnancy, first trimester; F17.210 Nicotine dependence, cigarettes, uncomplicated; Z3A.01 Less than 8 weeks gestation of pregnancy; Z88.0 Allergy status to penicillin
CPT/HCPCS: 85025; 81001; 80048; 36415; 81025; 84702; 76817; J2405; J7030; 96374; 99284

== ENCOUNTER 2023-06-28 08:13 | Emergency (ER) | payer SELFPAY ==
--- OUTSIDE RECORDS SUMMARY | 2023-06-28 08:16 | XMS REPORT | Continuity of Care Document ---
Author Name Unknown Address [address] [facility] [address] [place] [address] [facility] thconnect Address [address] 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 Name Role Phone PCP, PATIENT DOES NOT HAVE A Primary Care Physic chelsea Unavailable KIERA DOMINIQUE Attending Clinician Aly able CANDI BARRETT Attending Clinician Unavaila CANDI Wagner Attending Clinician Dayday ricardo Payers Payer Name Policy Type Policy Number Effective Date Expirati on Date Source [place] [employer] [id number] 2022 00:00:00 Allergies, Adverse Reactions, Alerts Allergy Name Allergy Type Status Severity Reaction(s) Onset Date Inactive Date Treating Clinician Comments Source [facility] [employer] [facility]GR[facility]I Active Other-Cmnt 2017-02 00:00: 00 [facility] Encounters Start Date/Time End Date/Time Encounter Type Admission Type Attending Clinicians Care Facility Care Department Encounter ID Source 2023-06-27 08:30:00 2023-06-27 08:30:00 Outpatient KIERA BUSH [facility] [id number] [facility] 2022-09-01 10:00:00 2022-09-01 10:00:00 Outpatient CANDI TAM CHERYAL [facility] [id number] [facility]
--- NOTE | 2023-06-28 09:07 | RAD REPORT ---
EXAM DESCRIPTION: RAD - Chest Pa And Lat (2 Views) - 06/28/2023 8:54 am CLINICAL HISTORY: Chest pain;Cough COMPARISON: Chest Single View dated 11/01/2022 FINDINGS: Lines: None. Lungs: No evidence of edema or pneumonia. Pleural: No significant pleural effusions or pneumothorax. Cardiac: The heart size is within normal limits. Mediastinum: Within normal limits. Bones: No acute fractures. Other: None IMPRESSION: No acute cardiopulmonary disease.
--- NOTE | 2023-06-28 09:26 | ER ---
Nurse's Notes [facility] Name: Melissa Iglesias Age: 27 yrs Sex: Female : 1995 Arrival Date: 06/28/2023 Time: 08:13 Bed 20 Private MD: Diagnosis: Cough;Chest pain, unspecified Presentation: 06/27 08:19 Chief complaint: Patient states: Chest pain - coughed up blood. Coronavirus screen: At ld1 this time, the client does not indicate any symptoms associated with coronavirus-19. Ebola Screen: No symptoms or risks identified at this time. Initial Sepsis Screen: Does the patient meet any 2 criteria? No. Patient's initial sepsis screen is negative. Does the patient have a suspected source of infection? No. Patient's initial sepsis screen is negative. Risk Assessment: Do you want to hurt yourself or someone else? Patient reports no desire to harm self or others. Onset of symptoms was June 28, 2023. 08:19 Method Of Arrival: Ambulatory ld1 08:19 Acuity: RICH 3 ld1 Triage Assessment: 08:19 General: Appears in no apparent distress. comfortable, Behavior is calm, cooperative, ld1 appropriate for age. Pain: Complains of pain in chest Pain does not radiate. Pain currently is 3 out of 10 on a pain scale. Quality of pain is described as throbbing. EENT: No signs and/or symptoms were reported regarding the EENT system. Neuro: Level of Consciousness is awake, alert, obeys commands, Oriented to person, place, time, Appropriate for age. Cardiovascular: Capillary refill < 3 seconds Patient's skin is warm and dry. Rhythm is sinus rhythm. Respiratory: Airway is patent Respiratory effort is even, unlabored. GI: Abdomen is round non-distended. : No signs and/or symptoms were reported regarding the genitourinary system. Derm: No signs and/or symptoms reported regarding the dermatologic system. Musculoskeletal: No signs and/or symptoms reported regarding the musculoskeletal system. 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 - Infectious Disease History:: Denies. - Social history:: Smoking status: Patient denies any tobacco usage or history of. Screenin:21 [facility] ED Fall Risk Assessment (Adult) History of falling in the last 3 months, ld1 including since admission No falls in past 3 months (0 pts). Abuse screen: Denies threats or abuse. Denies injuries from another. Nutritional screening: No deficits noted. Tuberculosis screening: No symptoms or risk factors identified. Assessment: 08:21 Reassessment: See triage assessment. ERP at bedside assessing patient. ld1 Vital Signs: 08:19 Pulse 66; Resp 18; Temp 97.6(TE); Pulse Ox 100% on R/A; Weight 90.72 kg; Height 5 ft. 4 ld1 in. ; Pain 3/10; 08:19 BP 133 / 91; ld1 09:31 BP 119 / 76; Pulse 77; Resp 18; Pulse Ox 99% on R/A; ld1 08:19 Body Mass Index 34.33 (90.72 kg, 162.56 cm) ld1 08:19 Pain Scale: Adult ld1 ED Course: 08:14 Patient arrived in ED. rg4 08:15 Gagandeep Granado DO is Attending Physician. ms3 08:16 Arm band placed on Patient placed in an exam room, on a stretcher. ll1 08:19 Danielle Granado, RN is Primary Nurse. ld1 08:20 Triage completed. ld1 08:21 Patient has correct armband on for positive identification. Placed in gown. Bed in low ld1 position. Call light in reach. Side rails up X2. patient monitor on. Pulse ox on. NIBP on. Door closed. Noise minimized. Warm blanket given. 08:21 No provider procedures requiring assistance completed. O2 via RA. ld1 08:53 Chest Pa And Lat (2 Views) XRAY In Process Unspecified. EDMS 09:32 Patient did not have IV access during this emergency room visit. ld1 Administered Medications: No medications were administered Medication: 08:21 VIS not applicable for this client. ld1 Outcome: 09:26 Discharge ordered by . ms3 09:31 Discharged to home ambulatory, ld1 09:31 Condition: stable 09:31 Discharge instructions given to patient, Instructed on discharge instructions, follow up and referral plans. Demonstrated understanding of instructions, follow-up care, 09:32 Patient left the ED. ld1 Signatures: Dispatcher [employer] Amy Flores rg4 Agnes John, RN RN ll1 Gagandeep Granado DO DO ms3 Danielle Granado, RN RN ld1
--- NOTE | 2023-06-28 09:26 | EDPHYS ---
Physician Documentation [facility] Name: Melissa Iglesias Age: 27 yrs Sex: Female : 1995 Arrival Date: 06/28/2023 Time: 08:13 Bed 20 Private MD: ED Physician Gagandeep Granado HPI: 06/27 08:30 This 27 yrs old Female presents to ER via Ambulatory with complaints of Chest Pain, ms3 Coughed up Blood. 08:30 27-year-old female with past medical history of anemia with last menstrual period of ms3 May 11, 2023, -0-0-4 presents to the emergency department for rib pain, cough that is productive of phlegm. She states her pain is a 3/10 located in the right ribs and substernally. She denies any alleviating or inciting factors. Patient endorses cough and denies fevers or chills.. 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 - Infectious Disease History:: Denies. - Social history:: Smoking status: Patient denies any tobacco usage or history of. ROS: 08:30 Constitutional: Negative for fever, and chills. Neck: Negative for injury, pain, and ms3 swelling, 08:30 Abdomen/GI: Negative for abdominal pain, nausea, vomiting, diarrhea, and constipation, MS/Extremity: Negative for injury and deformity, Skin: Negative for injury, rash, and discoloration, 08:30 Cardiovascular: Positive for chest pain, 08:30 Respiratory: Positive for cough, Exam: 08:30 Constitutional: This is a well developed, well nourished patient who is awake, alert, ms3 and in no acute distress. Head/Face: Normocephalic, atraumatic. Neck: Trachea midline, no cervical lymphadenopathy. Supple, full range of motion without nuchal rigidity, or vertebral point tenderness. No Meningismus. Chest/axilla: Normal chest wall appearance and motion. Nontender with no deformity. Cardiovascular: Regular rate and rhythm with a normal S1 and S2. No gallops, murmurs, or rubs. Normal PMI, no JVD. No pulse deficits. Respiratory: Lungs have equal breath sounds bilaterally, clear to auscultation and percussion. No rales, rhonchi or wheezes noted. No increased work of breathing, no retractions or nasal flaring. Abdomen/GI: Soft, non-tender, with normal bowel sounds. No distension or tympany. No guarding or rebound. No evidence of tenderness throughout. 08:30 ECG was reviewed by the Attending Physician. ms3 Vital Signs: 08:19 Pulse 66; Resp 18; Temp 97.6(TE); Pulse Ox 100% on R/A; Weight 90.72 kg; Height 5 ft. 4 ld1 in. ; Pain 3/10; 08:19 BP 133 / 91; ld1 09:31 BP 119 / 76; Pulse 77; Resp 18; Pulse Ox 99% on R/A; ld1 08:19 Body Mass Index 34.33 (90.72 kg, 162.56 cm) ld1 08:19 Pain Scale: Adult ld1 MDM: 08:30 Patient medically screened. ms3 08:30 Differential diagnosis: abnormal EKG, coronary artery disease chest wall pain, ms3 pneumonia. 09:26 Data reviewed: vital signs, nurses notes, and as a result, I will discharge patient. ms3 Independent interpretation of the following test(s) in the Emergency Department X-Ray: My interpretation is CXR image reviewed by me does not reveal PNA. Care significantly affected by the following chronic conditions: , anemia. Counseling: I had a detailed discussion with the patient and/or guardian regarding the historical points, exam findings, and any diagnostic results supporting the discharge/admit diagnosis, radiology results, the need for outpatient follow up, to return to the emergency department if symptoms worsen or persist or if there are any questions or concerns that arise at home. Special discussion: I discussed with the patient/guardian in detail that at this point there is no indication for admission to the hospital. It is understood, however, that if the symptoms persist or worsen the patient needs to return immediately for re-evaluation. ED course: Discussed EKG and chest x-ray findings with patient. Patient to follow-up with her television servicer in 2 to 3 days. Patient understands and agrees with plan. All questions were answered. Return precautions discussed include worsening symptoms, or any other concerns. On reevaluation patient is alert and oriented x 4, no apparent distress, nontoxic-appearing, speaking full sentences. 06/27 08:23 Order name: Chest Pa And Lat (2 Views) XRAY; Complete Time: 09:08 ms3 06/27 08:23 Order name: EKG; Complete Time: 08:24 ms3 06/27 08:23 Order name: EKG - Nurse/Tech; Complete Time: 08:29 ms3 EC:30 Rate is 60 beats/min. Rhythm is regular. QRS [place] is Normal. [place] interval is normal. QRS ms3 interval is normal. QT interval is normal. Clinical impression: Normal ECG. Interpreted by me. Reviewed by me. Administered Medications: No medications were administered Disposition Summary: 06/28/23 09:26 Discharge Ordered Notes: Location: Home ms3 Condition: Stable ms3 Diagnosis - Cough ms3 - Chest pain, unspecified ms3 Followup: ms3 - With: Private Physician - When: 2 - 3 days - Reason: Recheck today's complaints Discharge Instructions: - Discharge Summary Sheet ms3 - Nonspecific Chest Pain, Adult ms3 - Cough, Adult ms3 Forms: - Medication Reconciliation Form ms3 - Antibiotic Education ms3 - Prescription Opioid Use ms3 - Patient Portal Instructions ms3 - Leadership Thank You Letter ms3 Signatures: Dispatcher [employer] EDMS Agnes John, RN RN ll1 Gagandeep Granado, DO ms3 Danielle Granado RN RN ld1 Corrections: (The following items were deleted from the chart) 08:23 08:23 Chest Pa And Lat (2 Views)+RAD.RAD.BRZ ordered. EDMS EDMS
[2023-06-28 09:57] VITALS: BP 119/76; TEMP 97.6; O2SAT 99
--- NOTE | 2023-06-29 14:04 | EKG ---
Test Date: 2023-06-28 Test Time: 08:27:22 B2B Outside Sales Representative: Lui RODRIGES MEASUREMENT RESULTS: Intervals: Rate: 60 AK: 134 QRSD: 82 QT: 374 QTc: 374 [place]: P: 20 AK: 134 QRS: 74 T: 30 INTERPRETIVE STATEMENTS: Sinus rhythm with marked sinus arrhythmia Otherwise normal ECG Compared to ECG 11/01/2022 05:57:19 Sinus bradycardia no longer present Electronically Signed On 06-29-23 14:00:14 CDT by Pawan Hobbs
== END 2023-06-28 09:32 | disposition home or self-care (01) ==
LOC: ER 08:13
DX: R05.9 Cough, unspecified (principal); R07.9 Chest pain, unspecified
CPT/HCPCS: 71046; 93005

== ENCOUNTER 2023-08-24 19:20 | Emergency (ER) | payer OTHER ==
--- OUTSIDE RECORDS SUMMARY | 2023-08-24 19:23 | XMS REPORT | Continuity of Care Document ---
Author Name Unknown Address [address] [facility] [address] [place] [address] Organization [facility] thconnect Address [address] [facility] [place] [address] Care Team Providers Care Deputy Treasurer Name Role Phone Pcp, Patient Does Not Have A Primary Care Physic chelsea CORDELIA DOMINIQUE Attending Clinician Unavail able Tato WHCNPCordelia Attending Clinician + MAIA MILLER Attending Clinician Unavailkourtney e Ultrasound, Ang-Mfm Attending Clinician Maia Vanegas MD Attending Clinician [phone] CANDI BARRETT Attending Clinician CANDI Lou Attending Clinician Dayday ricardo Payers Payer Name Policy Type Policy Number Effective Date Expirati on Date Source [place] [employer] [id number] 2023 00:00:00 Problems Condition Name Condition Details Condition Category Status Onset Date Resolution Date Last Treatment Date Treating Clinician Comments Source Supervisio n of high-risk Supervisio n of high-risk Disease Active 07-02 00:00: 00 [facility] Nausea and vomiting in Nausea and vomiting in Disease Active 07-02 00:00: 00 [facility] Multiparit y Multiparit y Disease Active 04-02 00:00: 00 [facility] Obesity in Obesity in Disease Active 2017-02 00:00: 00 [facility] Positive GBS test Positive GBS test Disease Resolve d 5-02 00:00: 00 2023-07-03 00:00:00 2023-07-03 14:15:36 [facility] Abnormal maternal glucose tolerance, antepartum Abnormal maternal glucose tolerance, antepartum Disease Resolve d 3-05 00:00: 00 2023-07-03 00:00:00 2023-07-03 14:15:32 [facility] Supervisio n of high-risk with insufficie nt care Supervisio n of high-risk with insufficie nt care Disease Resolve d 04-02 00:00: 00 2023-07-03 00:00:00 2023-07-03 14:15:38 [facility] Uterine size-date discrepanc y, antepartum Uterine size-date discrepanc y, antepartum Disease Resolve d 2017-02 00:00: 00 2023-07-03 00:00:00 2023-07-03 14:15:39 [facility] Late care affecting in second trimester Late care affecting in second trimester Disease Resolve d 2017-02 00:00: 00 2018-04-02 00:00:00 2018-04-02 09:24:35 [facility] Allergies, Adverse Reactions, Alerts Allergy Name Allergy Type Status Severity Reaction(s) Onset Date Inactive Date Treating Clinician Comments Source Penicill in Propensi ty to adverse reaction s Active Other - See comments 2017-02 00:00: 00 Throat Closes Up [facility] PENICILL IN DRUG INGREDI Active Other-Cmnt 2017-02 00:00: 00 [facility] Social History Social Habit Start Date Stop Date Quantity Comments Source ASSERTION 2023-05-25 00:00:00 [facility] Alcoholic beverage intake 2023-07-31 00:00:00 2023-07-31 00:00:00 Current non-drinker of alcohol (finding) [facility] Tobacco use and exposure 2023-07-03 00:00:00 2023-07-03 00:00:00 Smokeless tobacco non-user [facility] History of Social function 2023-07-03 00:00:00 2023-07-03 00:00:00 [facility] Tobacco Comment 2023-07-03 00:00:00 2023-07-03 00:00:00 3-4 cigs daily [facility] History of tobacco use 2023-06-19 00:00:00 Cigarette Smoker [facility] Sex assigned at 1995 00:00:00 1995 00:00:00 [facility] Smoking Status Start Date Stop Date Source Ex-smoker 2023-07-03 00:00:00 [facility]23[facility]03 [facility]ations Ordered Medication Name Filled Medication Name Start Date Stop Date Current Medication? Ordering Clinician Indication Dosage Frequency Signature (SIG) Comments Components Source doxylamine- pyridoxine, vit B6, (DICLEGIS) 10-10 mg per tablet 08-22 00:00: 00 Yes [id number] 2{tbl} Take 2 tablets by mouth at bedtime. [facility] proMETHazin e 25 mg tablet 08-21 00:00: 00 Yes [id number] 25mg Take 1 tablet by mouth every 6 (six) hours as needed for Nausea and Vomiting (N/V). [facility] proMETHazin e 25 mg tablet 07-02 00:00: 00 Yes [id number] 25mg Take 1 tablet by mouth every 6 (six) hours as needed for Nausea and Vomiting (N/V). [facility] Immunizations Ordered Immunization Name Filled Immunization Name Date Status Comments Source Influenza Virus Vaccine Quad .5 mL IM 6+ MO (FLUZONE/FLULAVAL/FL UARIX) Unknown Completed [facility] TDAP Unknown Completed [facility] Influenza Virus Vaccine Quad .5 mL IM 6+ MO (FLUZONE/FLULAVAL/FL UARIX) Unknown Completed [facility] Influenza Virus Vaccine Quad .5 mL IM 6+ MO (FLUZONE/FLULAVAL/FL UARIX) Unknown Completed [facility] TDAP Unknown Completed [facility] Influenza Virus Vaccine Quad .5 mL IM 6+ MO (FLUZONE/FLULAVAL/FL UARIX) Unknown Completed [facility] Influenza Virus Vaccine Quad .5 mL IM 6+ MO (FLUZONE/FLULAVAL/FL UARIX) Unknown Completed [facility] TDAP Unknown Completed [facility] Influenza Virus Vaccine Quad .5 mL IM 6+ MO (FLUZONE/FLULAVAL/FL UARIX) Unknown Completed [facility] Influenza Virus Vaccine Quad .5 mL IM 6+ MO (FLUZONE/FLULAVAL/FL UARIX) Unknown Completed [facility] TDAP Unknown Completed [facility] Influenza Virus Vaccine Quad .5 mL IM 6+ MO (FLUZONE/FLULAVAL/FL UARIX) Unknown Completed [facility] Influenza Virus Vaccine Quad .5 mL IM 6+ MO (FLUZONE/FLULAVAL/FL UARIX) Unknown Completed [facility] TDAP Unknown Completed [facility] Influenza Virus Vaccine Quad .5 mL IM 6+ MO (FLUZONE/FLULAVAL/FL UARIX) Unknown Completed [facility] Influenza Virus Vaccine Quad .5 mL IM 6+ MO (FLUZONE/FLULAVAL/FL UARIX) Unknown Completed [facility] TDAP Unknown Completed [facility] Influenza Virus Vaccine Quad .5 mL IM 6+ MO (FLUZONE/FLULAVAL/FL UARIX) Unknown Completed [facility] Influenza Virus Vaccine Quad .5 mL IM 6+ MO (FLUZONE/FLULAVAL/FL UARIX) Unknown Completed [facility] TDAP Unknown Completed [facility] Influenza Virus Vaccine Quad .5 mL IM 6+ MO (FLUZONE/FLULAVAL/FL UARIX) Unknown Completed [facility] Influenza Virus Vaccine Quad .5 mL IM 6+ MO (FLUZONE/FLULAVAL/FL UARIX) Unknown Completed [facility] TDAP Unknown Completed [facility] Influenza Virus Vaccine Quad .5 mL IM 6+ MO (FLUZONE/FLULAVAL/FL UARIX) Unknown Completed [facility] Influenza Virus Vaccine Quad .5 mL IM 6+ MO (FLUZONE/FLULAVAL/FL UARIX) Unknown Completed [facility] TDAP Unknown Completed [facility] Influenza Virus Vaccine Quad .5 mL IM 6+ MO (FLUZONE/FLULAVAL/FL UARIX) Unknown Completed [facility] Influenza Virus Vaccine Quad .5 mL IM 6+ MO (FLUZONE/FLULAVAL/FL UARIX) Unknown Completed [facility] TDAP Unknown Completed [facility] Influenza Virus Vaccine Quad .5 mL IM 6+ MO (FLUZONE/FLULAVAL/FL UARIX) Unknown Completed [facility] Vital Signs Vital Name Observation Time Observation Value Comments S ource Systolic blood pressure 2023-07-31 17:32:00 136 mm[Hg] [facility] Diastolic blood pressure 2023-07-31 17:32:00 83 mm[Hg] [facility] Heart rate 2023-07-31 17:32:00 75 /min Unive [facility] Body temperature 2023-07-31 17:32:00 36.78 Estela [facility] Respiratory rate 2023-07-31 17:32:00 18 /min [facility] Body height 2023-07-31 17:32:00 162.6 cm [facility] Body weight 2023-07-31 17:32:00 93.622 kg [facility] BMI 2023-07-31 17:32:00 35.43 kg/m2 [facility] Systolic blood pressure 2023-07-03 18:47:00 98 mm[Hg] [facility] Diastolic blood pressure 2023-07-03 18:47:00 65 mm[Hg] [facility] Heart rate 2023-07-03 18:47:00 80 /min Unive [facility] Body temperature 2023-07-03 18:47:00 36.83 Estela [facility] Body height 2023-07-03 18:47:00 162.6 cm Univ [facility] Body weight 2023-07-03 18:47:00 92.715 kg [facility] BMI 2023-07-03 18:47:00 35.09 kg/m2 [facility] Procedures Procedure Date / Time Performed Performing Clinicia n Source FIRST TRIMESTER ULTRASOUND 2023-08-03 21:31:00 Cordelia Dominique [facility] POCT URINALYSIS 2023-07-31 17:36:00 Cordelia Dominique [facility] POCT TEST 2023-07-03 18:38:00 Matt Dominique [facility] POCT URINALYSIS W/O SPECIFIC GRAVITY 2023-07-03 18:38:00 Cordelia Dominique [facility] Encounters Start Date/Time End Date/Time Encounter Type Admission Type Attending [facility] Care Department Encounter ID Source 2023-08-28 13:15:00 2023-08-28 13:15:00 Outpatient R CORDELIA DOMINIQUE [facility] [id number] [facility] 2023-08-23 00:00:00 2023-08-23 13:06:54 Telephone Cordelia Dominique [facility] LIGHT REPAIRER HELPER [facility] & CHILD [facility] 1.2.840.114 350.1.13.10 4.2.7.2.686 [id number] [facility] 2023-08-10 00:00:00 2023-08-10 13:37:56 Abstract Cordelia Dominique [facility] LIGHT REPAIRER HELPER [facility] 1.2.840.114 350.1.13.10 4.2.7.2.686 [id number] [facility] 2023-08-03 00:00:00 2023-08-03 16:57:15 Abstract Cordelia Dominique [facility] LIGHT REPAIRER HELPER [facility] 1.2.840.114 350.1.13.10 4.2.7.2.686 [id number] [facility] 2023-08-03 15:30:00 2023-08-03 16:53:14 Outpatient P MAIA MILLER [facility] [id number] [facility] 2023-08-03 15:30:00 2023-08-03 16:53:14 Assessment Expert Visit Ultrasound, Maia Lloyd [facility] LIGHT REPAIRER HELPER [facility] & CHILD [facility] 1..840.114 350.1.13.10 4.2.7.2.686 [id number] [facility] 2023-07-31 12:30:00 2023-07-31 12:55:52 Outpatient R CORDELIA DOMINIQUE [facility] [id number] [facility] 2023-07-31 12:30:00 2023-07-31 12:55:52 Routine Visit Cordelia Dominique [facility] LIGHT REPAIRER HELPER [facility] MATERNAL & CHILD [facility] 1..840.114 350.1.13.10 4.2.7.2.686 [id number] [facility] 2023-07-06 00:00:00 2023-07-06 13:21:40 Telephone Cordelia Dominique [facility] LIGHT REPAIRER HELPER [facility] & CHILD [facility] 1..840.114 350.1.13.10 4.2.7.2.686 [id number] [facility] 2023-07-03 13:45:00 2023-07-03 14:51:48 Outpatient R CORDELIA DOMINIQUE [facility] [id number] [facility] 2023-07-03 13:45:00 2023-07-03 14:51:48 Initial Visit Cordelia Dominique [facility] LIGHT REPAIRER HELPER [facility] & CHILD [facility] 1..840.114 350.1.13.10 4.2.7.2.686 [id number] [facility] 2023-06-27 08:30:00 2023-06-27 08:30:00 Outpatient R CORDELIA DOMINIQUE [facility] [id number] [facility] 2022-09-01 10:00:00 2022-09-01 10:00:00 Outpatient R CANDI BARRETT VINICIOCANDI PEÑA [facility] [id number] [facility] Results Test Description Test Time Test Comments Results Result Co mments Source [facility] SPECIFIC [id number] 17:36:00* Test Item Value Reference Range Interpretation Comme nts POCT U SP GRAV (test code = 3255) . 1.005-1.025 POCT PH U (test code = 3254) . 5-8 POCT U LEUK EST (test code = 3263) . Negative - N egative POCT U NIT (test code = 3262) . Negative - Negati ve POCT U PROT (test code = 3259) trace Negative - Negat grace POCT U GLU (test code = 3256) neg Negative - Negati ve POCT U KETONE (test code = 3258) . Negative - Neg ative POCT U UROBILI (test code = 3260) . 0.2-1 POCT U BILI (test code = 3261) . Negative - Negat grace POCT U BLD (test code = 3257) . Negative - Negati ve POCT U COLOR (test code = 3266) . POCT U APPEAR (test code = 3267) [facility] Urinalysis w/o Specific [id number] 18:38:00* Test Item Value Reference Range Interpretation Comme nts POCT PH U (test code = 3254) 7 mg/dl 5-8 POCT U LEUK EST (test code = 3263) trace Negative - Negative POCT U NIT (test code = 3262) neg Negative - Negati ve POCT U PROT (test code = 3259) trace Negative - Negat grace POCT U GLU (test code = 3256) neg Negative - Negati ve POCT U KETONE (test code = 3258) neg Negative - Neg ative POCT U BLD (test code = 3257) neg Negative - Negati ve [facility] [id number] 18:38:00* Test Item Value Reference Range Interpretation Comme nts POCT PREG (test code = 1605) Positive On board controls acceptable with C Line (test code = 3574) Yes POCT PREG LOT # (test code = 3575) POCT PREG TEST DATE ( test code = 3576) [facility] Urinalysis w/o Specific [id number] 18:38:00* Test Item Value Reference Range Interpretation Comme nts POCT PH U (test code = 3254) 7 mg/dl 5-8 POCT U LEUK EST (test code = 3263) trace Negative - Negative POCT U NIT (test code = 3262) neg Negative - Negati ve POCT U PROT (test code = 3259) trace Negative - Negat grace POCT U GLU (test code = 3256) neg Negative - Negati ve POCT U KETONE (test code = 3258) neg Negative - Neg ative POCT U BLD (test code = 3257) neg Negative - Negati ve [facility] [id number] 18:38:00* Test Item Value Reference Range Interpretation Comme nts POCT PREG (test code = 1605) Positive On board controls acceptable with C Line (test code = 3574) Yes POCT PREG LOT # (test code = 3575) POCT PREG TEST DATE ( test code = 3576) [facility] Notes Date/Time Note Provider Source 2023-08-23 13:20:07 5087-58-91G16:20:07F ormatting of this note might be different from the original.Pt notified medication sent to pharmacy and informed of recommendations, verbalized understanding. 96198-3Ibtbxuahz encounter CmzuGD7284-51-45V73:20:36Teleph one encounter NoteTXT1.2.840.475529.1.13.104. 2.7.2.154489|[id number] [facility] for patient pbjn59755-0VazkDHEQLNIAULTQagcn tted C-CDA narrative [id number] Garcia [address] NcknEybwmsmquQhpottifeRKGC98436 25561WGZOWDQUWOHXZXCSINTETS7895 -07-03T13:20:361.2.840.846162.1 .72.3.15|1.2.840.926690.1.13.10 4.2.7.2.727879_[id number] Nova Krishnan HYDROGEOLOGIST [facility] 2023-08-23 13:05:11 5786-88-79T59:05:11F ormatting of this note might be different from the original.Please advise patient that diclegis has been ordered to her pharmacy on file. Please advise her on small frequent meals/snacks, celeste ori/sprite, saltine crackers, if her symptoms get worse please advise her to follow up in the ED she may need iv hydrationJOE Garza 08/23/2023 1:06 PM 54103-7Mqsqpzqjn encounter JmbdLM2832-92-63J19:06:54Teleph one encounter NoteTXT1.2.840.268735.1.13.104. 2.7.2.454146|[id number] ble for patient hcew57937-5WbsaIVIIUHRTBSLXauxm tted C-CDA narrative [address] EcfkGdcgqzrlgFaikhhfykWRMT49929 45983APYBXYTTJCIYVBBPMCHQRX7874 -07-03T13:06:541.2.840.056117.1 .72.3.15|1.2.840.191454.1.13.10 4.2.7.2.727879_[id number] [facility] 2023-08-23 10:29:38 5504-16-96F38:29:38F ormatting of this note might be different from the original.Pt called, reports having N/V 6-7 times daily that has worsened in the last 3 days. Pt reports taking promethazine with no relief. Pt reports has urinated x 3 in the past 24 hours. Pt reports unable to tolerate fluids and or food. Pt given strict er warnings, advised if symptoms worsen to fu with ER. Advised would route diclegis request to provider and will call back with poc.Bianca Evans RN 08/23/23 10:37 AM 07097-8Uizrlojsq encounter JcmiQH1748-69-14N48:37:45Teleph one encounter NoteTXT1.2.840.719354.1.13.104. 2.7.2.094416|[id number] ble for patient ckoy79160-2UqeiKCLPZTCHAXPGhytw tted C-CDA narrative text[address] QrxqLzpytnxddFgfiegguaROYG74915 91538YYJNMLITNQKOFJIJWAGHHO4613 -07-03T10:37:451.2.840.627408.1 .72.3.15|1.2.840.200933.1.13.10 4.2.7.2.727879_[id number] [facility] 2023-08-23 10:20:23 3834-80-00G66:20:23F ormatting of this note might be different from the original.Harrison Iglesias is a 28 year old femalePt is still having vomiting and would like another medication to be called out. Pt stated the current med is not working and the vomiting is getting worse.[facility]/pharmacy #[id number] - [place], [place] - [address] [place] [address]59[address]Bslau: [phone] Qrzpneckuczizu signed by Frank Deng at 08/23/2023 10:22 AM SBL89399-4Bbrrxzhxq encounter TnjiZB9886-18-04N40:22:06Teleph one encounter NoteTXT1.2.840.700074.1.13.104. 2.7.2.252443|[id number] ble for patient eldp87325-0DhlxQJYSGIEQLPSRsmdw tted C-CDA narrative [id number] [address]TX[address] 80212HUUPDSUSHENWEIFUNTWIAZ4413 -07-03T10:22:061.2.840.546353.1 .72.3.15|1.2.840.515387.1.13.10 4.2.7.2.727879_[id number] Frank Deng [facility] 2023-07-06 13:39:14 0992-40-05W40:39:14F ormatting of this note might be different from the original.Called pt, notified of providers recommendations. Pt verbalized understanding.Bianca Evans RN 07/06/23 1:40 PM 49515-0Zzuallapc encounter LydjME7195-63-25Q65:40:32Teleph one encounter NoteTXT1.2.840.647422.1.13.104. 2.7.2.287167|[id number] ble for patient zkas74760-3OgcjABNYPBDHDQMMmkcd tted C-CDA narrative text[address]TX[address] 69484MEYLAYYJWJXLPHVRKQOFCJ1778 -05-16T13:40:321.2.840.948547.1 .72.3.15|1.2.840.863983.1.13.10 4.2.7.2.727879_[id number] [facility] 2023-07-06 13:19:58 4216-25-11C65:19:58F ormatting of this note might be different from the original.Please notify the patient no antibiotics are needed at this time, labs is less than 517176KonbyldsJOE Garza 07/06/2023 1:21 PM 67714-8Nqqexgebq encounter FzolPP4396-97-25I83:21:40Teleph one encounter NoteTXT1.2.840.352484.1.13.104. 2.7.2.712335|[id number] ble for patient mevz20333-2GpeqUJLCLDFYUICEkbap tted C-CDA narrative [address] 09751CLHAFUTZBJKZBOPLOOGLLB8697 -05-16T13:21:401.2.840.083004.1 .72.3.15|1.2.840.740132.1.13.10 4.2.7.2.727879_[id number] [facility] 2023-07-06 08:51:32 1723-90-22L27:51:32F ormatting of this note might be different from the original.Patient wanted to go over results from visit on 07/02. Informed will route to provider for results for urine culture to see if abt are needed. 98456-0Wwqqjbuqe encounter PnbyPI8499-35-27O39:53:54Teleph one encounter NoteTXT1.2.840.497881.1.13.104. 2.7.2.532127|[id number] ble for patient euvr57367-5TphlYVQTJXIBSGCCrcea tted C-CDA narrative [id number] Garcia [address] 26509NIWQBTYVZUEAXTBEGPZMHU3965 -05-16T08:53:541.2.840.077791.1 .72.3.15|1.2.840.510632.1.13.10 4.2.7.2.727879_[id number] Nova Krishnan LVN [facility] 2023-07-06 08:22:46 7407-64-17V15:22:46F ormatting of this note might be different from the original.Copied from [facility] #[id number]. Topic: Clinical - Medical Advice>> July 06, 2023 8:21 AM Patient Electrical Sign Servicer wrote:Pt is requesting call back to go over results, please call [phone] (home) 57525-3Rnpkclqpd encounter OkqyZD2594-11-87O37:23:45Teleph one encounter NoteTXT1.2.840.362259.1.13.104. 2.7.2.679473|[id number] ble for patient htes69793-0HecgGZYJRHPPWUGFazeq tted C-CDA narrative ajzj3788966OR [address] UyosHadirwixaZsjhigcvrJWXV15580 52896OPHSZXZWUKNIIOXGPVMZXW1626 -05-16T08:23:451.2.840.055951.1 .72.3.15|1.2.840.134264.1.13.10 4.2.7.2.727879_[id number] HARRISON Osorio [facility]"
[2023-08-24 20:12] LABS: Absolute Eosinophils 0.1 K/uL (0-0.5); Absolute Lymphocytes (CBC) 2.6 K/uL (0.7-4.9); Absolute Monocytes 0.7 K/uL (0.1-1.3); Absolute Neutrophil 9.1 K/uL (1.8-8.0); Basophils % 0.3 % (0-1.3); Hematocrit 38.4 % (36.0-45.0); Hemoglobin 12.4 g/dL (12.0-15.0); Lymphocytes % 20.6 % (15.3-44.8); MCH 29.6 pg (27.0-35.0); MCHC 32.2 g/dL (32.0-36.0); MCV 91.9 fL (80-100); MPV 7.5 fL (7.6-11.3); Monocytes % 5.2 % (3.3-12.3); Neutrophils % 72.9 % (41.7-73.7); Platelets 276 thou/uL (152-406); RBC Red Blood Cell Count 4.18 M/uL (3.86-4.86); Red Cell Distribution Width 12.9 % (12.1-15.2)
[2023-08-24] MEDS ORDERED: NA CHLORIDE 0.9% 1,000 ML ONE (20:28)
[2023-08-24 20:32] LABS: Albumin 3.2 g/dL (3.4-5.0); Albumin/Globulin Ratio 0.8 (1.1-1.8); Anion Gap 8.5 mEq/L (5.0-15.0); Bilirubin Direct 0.2 mg/dL (0-0.2); Bilirubin Indirect, Calculated 0.3 mg/dL (0.2-0.8); Bilirubin Total 0.5 mg/dL (0.2-1.0); Globulin 3.8 g/dL (2.3-3.5); Potassium 3.5 mEq/L (3.5-5.1)
--- NOTE | 2023-08-24 22:46 | ER ---
Nurse's Notes [facility] Name: Melissa Iglesias Age: 28 yrs Sex: Female : 1995 Arrival Date: 08/24/2023 Time: 19:20 Bed 7 Private MD: Diagnosis: Other vomiting complicating Presentation: 08/23 19:27 Chief complaint: Patient states: patient c/o n/v throughout this entire , was al5 sent by OB for fluids and to check heart tones. Coronavirus screen: At this time, the client does not indicate any symptoms associated with coronavirus-19. Ebola Screen: No symptoms or risks identified at this time. Initial Sepsis Screen: Does the patient meet any 2 criteria? HR > 90 bpm. No. Patient's initial sepsis screen is negative. Does the patient have a suspected source of infection? No. Patient's initial sepsis screen is negative. Risk Assessment: Do you want to hurt yourself or someone else? Patient reports no desire to harm self or others. Onset of symptoms was July 21, 2023. 19:27 Method Of Arrival: Ambulatory al5 19:27 Acuity: RICH 3 al5 Triage Assessment: 19:30 General: Appears in no apparent distress. Behavior is calm, cooperative. Pain: Denies al5 pain. EENT: No deficits noted. No signs and/or symptoms were reported regarding the EENT system. Neuro: No deficits noted. Level of Consciousness is awake, alert, obeys commands, Oriented to person, place, time, situation. Cardiovascular: Denies chest pain, shortness of breath, Capillary refill < 3 seconds Patient's skin is warm and dry. Respiratory: No deficits noted. Airway is patent Trachea midline Respiratory effort is even, unlabored, Respiratory pattern is regular, symmetrical. GI: Abdomen is round non-distended, Last meal was August 24, 2023. at 19:00. GI: Reports nausea, vomiting. : No deficits noted. No signs and/or symptoms were reported regarding the genitourinary system. Derm: No deficits noted. No signs and/or symptoms reported regarding the dermatologic system. Skin is intact, Skin is pink, warm \T\ dry. normal, Skin temperature is warm. Musculoskeletal: No deficits noted. No signs and/or symptoms reported regarding the musculoskeletal system. 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 - Infectious Disease History:: Denies. - Social history:: Smoking status: Patient/guardian denies using tobacco, Stopped _ months ago 2. Screenin:40 [facility] ED Fall Risk Assessment (Adult) History of falling in the last 3 months, jj7 including since admission No falls in past 3 months (0 pts) Confusion or Disorientation No (0 pts) Intoxicated or Sedated No (0 pts) Impaired Gait No (0 pts) Mobility Assist Device Used No (0 pt) Altered Elimination No (0 pt) Score/Fall Risk Level 0 - 2 = Low Risk Oriented to surroundings, Maintained a safe environment, Educated pt \T\ family on fall prevention, incl call for assistance when getting out of bed. Abuse screen: Denies threats or abuse. Nutritional screening: Has had N/V for 3 or more days. Tuberculosis screening: No symptoms or risk factors identified. Assessment: 19:40 General: Appears in no apparent distress. comfortable, Behavior is calm, cooperative, jj7 appropriate for age. Pain: Denies pain. Neuro: No deficits noted. GI: Reports nausea, vomiting. Vital Signs: 19:27 BP 123 / 79; Pulse 96; Resp 17; Temp 97.3(TE); Pulse Ox 99% on R/A; Weight 93.44 kg; al5 Height 5 ft. 4 in. ; Pain 0/10; 20:34 BP 112 / 79; Pulse 78; Resp 17; Pulse Ox 99% ; jj7 21:30 BP 115 / 81; Pulse 78; Resp 17; Pulse Ox 98% ; jj7 22:40 BP 148 / 84; Pulse 62; Resp 18; Temp 97.9; Pulse Ox 100% ; jj7 19:27 Body Mass Index 35.36 (93.44 kg, 162.56 cm) al5 19:27 Pain Scale: Adult al5 Vitals: 20:34 Heart Tones 162 BMP. jj7 ED Course: 19:22 Patient arrived in ED. im 19:23 Valentin Yin PA is PHCP. cp 19:23 Valentin Medina MD is Attending Physician. cp 19:29 Triage completed. al5 19:32 Arm band placed on right wrist. Patient placed in an exam room, on a stretcher. al5 19:36 Randy Estevez, RN is Primary Nurse. jj7 19:40 Patient has correct armband on for positive identification. Bed in low position. Call jj7 light in reach. Provided Education on: USE OF CALL BORGES. 19:40 No provider procedures requiring assistance completed. jj7 19:58 Inserted saline lock: 20 gauge in left antecubital area, using aseptic technique. af3 20:00 Abo/rh Typing Sent. af3 20:00 Basic Metabolic Panel Sent. af3 20:00 CBC with Diff Sent. af3 20:01 LFT's Sent. af3 20:01 Lipase Sent. af3 22:52 IV discontinued, intact, bleeding controlled, No redness/swelling at site. Pressure jj7 dressing applied. Administered Medications: 20:31 Drug: NS 0.9% IV 1000 ml IV at 1 bolus Per protocol; 1000 mL bolus Route: IV; Rate: 1 jj7 bolus; Site: left antecubital; 21:30 Follow up: IV Status: Completed infusion jj7 Medication: 19:40 VIS not applicable for this client. jj7 Outcome: 22:46 Discharge ordered by MD. cp 22:52 Discharged to home ambulatory, jj7 22:52 Condition: good 22:52 Discharge instructions given to patient, Instructed on discharge instructions, follow up and referral plans. medication usage, Demonstrated understanding of instructions, follow-up care, medications, Prescriptions given X 1, 22:57 Patient left the ED. jj7 Signatures: Valentin Yin PA PA cp Johnson, Juwairiyah, RN RN jj7 Olga Kowalski Amanda RN RN al5 Meenakshi Mackey af3
--- NOTE | 2023-08-24 22:46 | EDPHYS ---
Physician Documentation [facility] Name: Melissa Iglesias Age: 28 yrs Sex: Female : 1995 Arrival Date: 08/24/2023 Time: 19:20 Bed 7 Private MD: ED Physician Valentin Medina HPI: 08/23 19:45 This 28 yrs old Female presents to ER via Ambulatory with complaints of 13 Weeks cp , sent by OB. 19:45 The patient presents to the emergency department with nausea and vomiting, that started cp throughout . 19:45 The estimated gestational age is 13 weeks. course: care: private OB cp physician, Leakage of Fluid: none appreciated. Previous pregnancies: in previous pregnancies patient has had no complications. Associated signs and symptoms: Pertinent negatives: diarrhea, fever, ruptured membranes, vaginal bleeding, active vomiting. 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 - Infectious Disease History:: Denies. - Social history:: Smoking status: Patient/guardian denies using tobacco, Stopped _ months ago 2. ROS: 19:50 Constitutional: Negative for body aches, chills, fever, cp 19:50 Eyes: Negative for injury, pain, redness, and discharge, cp 19:50 Respiratory: Negative for cough, shortness of breath, wheezing, 19:50 Abdomen/GI: Positive for nausea and vomiting, Negative for diarrhea, constipation, 19:50 : Negative for urinary symptoms, vaginal bleeding, vaginal discharge, 19:50 Neuro: Negative for altered mental status, dizziness, headache, weakness, 19:50 All other systems are negative, Exam: 19:55 Constitutional: The patient appears in no acute distress, alert, awake, non-toxic, well cp developed, well nourished, 19:55 Head/Face: Normocephalic, atraumatic. cp 19:55 Eyes: Periorbital structures: appear normal, Sclera: no appreciated abnormality, Lids and lashes: appear normal, bilaterally, 19:55 ENT: External ear(s): are unremarkable, Nose: is normal, Mouth: Lips: moist, Oral mucosa: pink and intact, moist, Posterior pharynx: Airway: no evidence of obstruction, patent, 19:55 Chest/axilla: Inspection: normal, 19:55 Cardiovascular: Rate: normal, Rhythm: regular, 19:55 Respiratory: the patient does not display signs of respiratory distress, Respirations: normal, no use of accessory muscles, no retractions, labored breathing, is not present, Breath sounds: are clear throughout, no decreased breath sounds, no stridor, no wheezing, 19:55 Abdomen/GI: Inspection: gravid appearance, is noted, Bowel sounds: active, all quadrants, Palpation: abdomen is soft and non-tender, rebound tenderness, is not appreciated, 19:55 Back: CVA tenderness, is absent, Vital Signs: 19:27 BP 123 / 79; Pulse 96; Resp 17; Temp 97.3(TE); Pulse Ox 99% on R/A; Weight 93.44 kg; al5 Height 5 ft. 4 in. ; Pain 0/10; 20:34 BP 112 / 79; Pulse 78; Resp 17; Pulse Ox 99% ; jj7 21:30 BP 115 / 81; Pulse 78; Resp 17; Pulse Ox 98% ; jj7 22:40 BP 148 / 84; Pulse 62; Resp 18; Temp 97.9; Pulse Ox 100% ; jj7 19:27 Body Mass Index 35.36 (93.44 kg, 162.56 cm) al5 19:27 Pain Scale: Adult al5 MDM: 19:30 Patient medically screened. cp 20:00 Differential diagnosis: dehydration, electrolyte abnormality, gastritis, appendicitis, cp cholecystitis. 22:47 Data reviewed: vital signs, nurses notes, lab test result(s). Counseling: I had a cp detailed discussion with the patient and/or guardian regarding the historical points, exam findings, and any diagnostic results supporting the discharge/admit diagnosis, lab results, the need for outpatient follow up, an OB/Gyne specialist, to return to the emergency department if symptoms worsen or persist or if there are any questions or concerns that arise at home. ED course: VSS. Patient requesting discharge to home for continued monitoring. 08/23 19:41 Order name: Abo/rh Typing; Complete Time: 22:07 cp 08/23 19:41 Order name: Basic Metabolic Panel; Complete Time: 22:07 cp 08/23 22:07 Interpretation: Reviewed. 08/23 19:41 Order name: CBC with Diff; Complete Time: 22:07 cp 08/23 22:07 Interpretation: Normal except: WBC 12.50; MPV 7.5; NEUT A 9.1. cp 08/23 19:41 Order name: Quantitative Hcg; Complete Time: 22:07 cp 08/23 22:07 Interpretation: Reviewed. 08/23 19:41 Order name: Lipase; Complete Time: 22:07 cp 08/23 19:41 Order name: LFT's; Complete Time: 22:07 cp 08/23 22:07 Interpretation: Normal except: AST 11; ALK 41; ALB 3.2; GLOB 3.8; A/G 0.8. 08/23 19:41 Order name: FHT's; Complete Time: 20:33 cp 08/23 19:41 Order name: IV Saline Lock; Complete Time: 20:00 cp 08/23 19:41 Order name: Labs collected and sent; Complete Time: 20:00 cp 08/23 19:41 Order name: NPO; Complete Time: 20:16 cp 08/23 22:08 Order name: PO challenge; Complete Time: 22:13 cp Administered Medications: 20:31 Drug: NS 0.9% IV 1000 ml IV at 1 bolus Per protocol; 1000 mL bolus Route: IV; Rate: 1 jj7 bolus; Site: left antecubital; 21:30 Follow up: IV Status: Completed infusion jj7 Disposition Summary: 08/24/23 22:46 Discharge Ordered Notes: Location: Home cp Problem: new cp Symptoms: have improved cp Condition: Stable cp Diagnosis - Other vomiting complicating cp Followup: cp - With: Private Physician - When: 2 - 3 days - Reason: Recheck today's complaints Discharge Instructions: - Discharge Summary Sheet cp - Hyperemesis Gravidarum cp Forms: - Medication Reconciliation Form cp - Antibiotic Education cp - Prescription Opioid Use cp - Patient Portal Instructions cp - Leadership Thank You Letter cp Prescriptions: - promethazine 25 mg Rectal suppository - insert 1 suppository RECTAL route every 4 to 6 hours as needed for nausea and cp vomiting; 20 suppository; Refills: 0, Product Selection Permitted Addendum: 08/26/2023 07:50 Co-signature as Attending Physician, Valentin Medina MD I agree with the assessment and c dey plan of care. Signatures: Dispatcher [employer] EDMS Valentin Medina MD MD cha Page, Corey, PA PA Randy uW, RN RN jj7 Mihaela Rodriguez RN RN al5 Corrections: (The following items were deleted from the chart) 08/23 19:42 19:42 ABO/RH TYPING+BB.LAB.BRZ ordered. EDMS EDMS 19:42 19:42 BASIC METABOLIC PANEL+C.LAB.BRZ ordered. EDMS EDMS 19:42 19:42 CBC+H.LAB.BRZ ordered. EDMS EDMS 19:42 19:42 Test, Urine+UC.LAB.BRZ ordered. EDMS EDMS 19:42 19:42 QUANTITATIVE HCG+C.LAB.BRZ ordered. EDMS EDMS 19:42 19:42 Urinalysis+U.LAB.BRZ ordered. EDMS EDMS 19:42 19:42 LIPASE+C.LAB.BRZ ordered. EDMS EDMS 19:42 19:42 HEPATIC FUNCTION+C.LAB.BRZ ordered. EDMS EDMS
[2023-08-24 23:31] VITALS: BP 148/84; TEMP 97.9; O2SAT 100
== END 2023-08-24 22:57 | disposition home or self-care (01) ==
LOC: ER 19:20
DX: O21.8 Other vomiting complicating pregnancy (principal); Z3A.13 13 weeks gestation of pregnancy; Z88.0 Allergy status to penicillin
CPT/HCPCS: 85025; 80048; 36415; 86900; 86901; 80076; 84702; 83690; 96360; 99284; J7030

== ENCOUNTER 2023-08-25 11:53 | Emergency (ER) | payer OTHER ==
--- OUTSIDE RECORDS SUMMARY | 2023-08-25 11:57 | XMS REPORT | Continuity of Care Document ---
Author Name Unknown Address [address] [facility] [address] [place] [address] Organization [facility] thconnect Address [address] [facility] [place] [address] Care Team Providers Care Production Assistant Name Role Phone Pcp, Patient Does Not Have A Primary Care Physic chelsea CORDELIA DOMINIQUE Attending Clinician Unavail able Tato WHCNPCordelia Attending Clinician + MAIA MILLER Attending Clinician Unavailkourtney e Ultrasound, Ang-Mfm Attending Clinician Maia Vanegas MD Attending Clinician [phone] CANDI BARRETT Attending Clinician CANDI Lou Attending Clinician Dayday ricardo Payers Payer Name Policy Type Policy Number Effective Date Expirati on Date Source [place] [employer] [id number] 2023 00:00:00 Problems Condition Name Condition Details Condition Category Status Onset Date Resolution Date Last Treatment Date Treating Clinician Comments Source Supervisio n of high-risk Supervisio n of high-risk Disease Active 07-02 00:00: 00 [facility] Nausea and vomiting in Nausea and vomiting in Disease Active 07-02 00:00: 00 [facility] Multiparit y Multiparit y Disease Active 04-02 00:00: 00 [facility] Obesity in Obesity in Disease Active 2017-02 00:00: 00 [facility] Positive GBS test Positive GBS test Disease Resolve d 5-02 00:00: 00 2023-07-03 00:00:00 2023-07-03 14:15:36 [facility] Abnormal maternal glucose tolerance, antepartum Abnormal maternal glucose tolerance, antepartum Disease Resolve d 3-05 00:00: 00 2023-07-03 00:00:00 2023-07-03 14:15:32 [facility] Supervisio n of high-risk with insufficie nt care Supervisio n of high-risk with insufficie nt care Disease Resolve d 04-02 00:00: 00 2023-07-03 00:00:00 2023-07-03 14:15:38 [facility] Uterine size-date discrepanc y, antepartum Uterine size-date discrepanc y, antepartum Disease Resolve d 2017-02 00:00: 00 2023-07-03 00:00:00 2023-07-03 14:15:39 [facility] Late care affecting in second trimester Late care affecting in second trimester Disease Resolve d 2017-02 00:00: 00 2018-04-02 00:00:00 2018-04-02 09:24:35 [facility] Allergies, Adverse Reactions, Alerts Allergy Name Allergy Type Status Severity Reaction(s) Onset Date Inactive Date Treating Clinician Comments Source Penicill in Propensi ty to adverse reaction s Active Other - See comments 2017-02 00:00: 00 Throat Closes Up [facility] PENICILL IN DRUG INGREDI Active Other-Cmnt 2017-02 00:00: 00 [facility] Social History Social Habit Start Date Stop Date Quantity Comments Source ASSERTION 2023-05-25 00:00:00 [facility] beverage intake 2023-07-31 00:00:00 2023-07-31 00:00:00 Current non-drinker of alcohol (finding) [facility] Tobacco use and exposure 2023-07-03 00:00:00 2023-07-03 00:00:00 Smokeless tobacco non-user [facility] History of Social function 2023-07-03 00:00:00 2023-07-03 00:00:00 [facility] Tobacco Comment 2023-07-03 00:00:00 2023-07-03 00:00:00 3-4 cigs daily [facility] History of tobacco use 2023-06-19 00:00:00 Cigarette Smoker [facility] Sex assigned at 1995 00:00:00 1995 00:00:00 [facility] Smoking Status Start Date Stop Date Source Ex-smoker 2023-07-03 00:00:00 2023[facility]03 [facility] Medications Ordered Medication Name Filled Medication Name Start Date Stop Date Current Medication? Ordering Clinician Indication Dosage Frequency Signature (SIG) Comments Components Source doxylamine- pyridoxine, vit B6, (DICLEGIS) 10-10 mg per tablet 08-22 00:00: 00 Yes [id number] 2{tbl} Take 2 tablets by mouth at bedtime. [facility] proMETHazin e 25 mg tablet 08-21 00:00: 00 Yes [id number] 25mg Take 1 tablet by mouth every 6 (six) hours as needed for Nausea and Vomiting (N/V). [facility] proMETHazin e 25 mg tablet 07-02 00:00: 00 Yes [id number] 25mg Take 1 tablet by mouth every 6 (six) hours as needed for Nausea and Vomiting (N/V). [facility] Immunizations Ordered Immunization Name Filled Immunization Name Date Status Comments Source Influenza Virus Vaccine Quad .5 mL IM 6+ MO (FLUZONE/FLULAVAL/FL UARIX) Unknown Completed [facility] TDAP Unknown Completed [facility] Influenza Virus Vaccine Quad .5 mL IM 6+ MO (FLUZONE/FLULAVAL/FL UARIX) Unknown Completed [facility] Influenza Virus Vaccine Quad .5 mL IM 6+ MO (FLUZONE/FLULAVAL/FL UARIX) Unknown Completed [facility] TDAP Unknown Completed [facility] Influenza Virus Vaccine Quad .5 mL IM 6+ MO (FLUZONE/FLULAVAL/FL UARIX) Unknown Completed [facility] Influenza Virus Vaccine Quad .5 mL IM 6+ MO (FLUZONE/FLULAVAL/FL UARIX) Unknown Completed [facility] TDAP Unknown Completed [facility] Influenza Virus Vaccine Quad .5 mL IM 6+ MO (FLUZONE/FLULAVAL/FL UARIX) Unknown Completed [facility] Influenza Virus Vaccine Quad .5 mL IM 6+ MO (FLUZONE/FLULAVAL/FL UARIX) Unknown Completed [facility] TDAP Unknown Completed [facility] Influenza Virus Vaccine Quad .5 mL IM 6+ MO (FLUZONE/FLULAVAL/FL UARIX) Unknown Completed [facility] Influenza Virus Vaccine Quad .5 mL IM 6+ MO (FLUZONE/FLULAVAL/FL UARIX) Unknown Completed [facility] TDAP Unknown Completed [facility] Influenza Virus Vaccine Quad .5 mL IM 6+ MO (FLUZONE/FLULAVAL/FL UARIX) Unknown Completed [facility] Influenza Virus Vaccine Quad .5 mL IM 6+ MO (FLUZONE/FLULAVAL/FL UARIX) Unknown Completed [facility] TDAP Unknown Completed [facility] Influenza Virus Vaccine Quad .5 mL IM 6+ MO (FLUZONE/FLULAVAL/FL UARIX) Unknown Completed [facility] Influenza Virus Vaccine Quad .5 mL IM 6+ MO (FLUZONE/FLULAVAL/FL UARIX) Unknown Completed [facility] TDAP Unknown Completed [facility] Influenza Virus Vaccine Quad .5 mL IM 6+ MO (FLUZONE/FLULAVAL/FL UARIX) Unknown Completed [facility] Influenza Virus Vaccine Quad .5 mL IM 6+ MO (FLUZONE/FLULAVAL/FL UARIX) Unknown Completed [facility] TDAP Unknown Completed [facility] Influenza Virus Vaccine Quad .5 mL IM 6+ MO (FLUZONE/FLULAVAL/FL UARIX) Unknown Completed [facility] Influenza Virus Vaccine Quad .5 mL IM 6+ MO (FLUZONE/FLULAVAL/FL UARIX) Unknown Completed [facility] TDAP Unknown Completed [facility] Influenza Virus Vaccine Quad .5 mL IM 6+ MO (FLUZONE/FLULAVAL/FL UARIX) Unknown Completed [facility] Influenza Virus Vaccine Quad .5 mL IM 6+ MO (FLUZONE/FLULAVAL/FL UARIX) Unknown Completed [facility] TDAP Unknown Completed [facility] Influenza Virus Vaccine Quad .5 mL IM 6+ MO (FLUZONE/FLULAVAL/FL UARIX) Unknown Completed [facility] Vital Signs Vital Name Observation Time Observation Value Comments S ource Systolic blood pressure 2023-07-31 17:32:00 136 mm[Hg] [facility] Diastolic blood pressure 2023-07-31 17:32:00 83 mm[Hg] [facility] Heart rate 2023-07-31 17:32:00 75 /min [facility] Body temperature 2023-07-31 17:32:00 36.78 Estela [facility] Respiratory rate 2023-07-31 17:32:00 18 /min [facility] Body height 2023-07-31 17:32:00 162.6 cm [facility] Body weight 2023-07-31 17:32:00 93.622 kg [facility] BMI 2023-07-31 17:32:00 35.43 kg/m2 [facility] Systolic blood pressure 2023-07-03 18:47:00 98 mm[Hg] [facility] Diastolic blood pressure 2023-07-03 18:47:00 65 mm[Hg] [facility] Heart rate 2023-07-03 18:47:00 80 /min [facility] Body temperature 2023-07-03 18:47:00 36.83 Estela [facility] Body height 2023-07-03 18:47:00 162.6 cm [facility] Body weight 2023-07-03 18:47:00 92.715 kg [facility] BMI 2023-07-03 18:47:00 35.09 kg/m2 [facility] Procedures Procedure Date / Time Performed Performing Clinicia n Source FIRST TRIMESTER ULTRASOUND 2023-08-03 21:31:00 Cordelia Dominique [facility] POCT URINALYSIS 2023-07-31 17:36:00 Cordelia Dominique [facility] POCT TEST 2023-07-03 18:38:00 Matt Dominique [facility] POCT URINALYSIS W/O SPECIFIC GRAVITY 2023-07-03 18:38:00 Cordelia Dominique [facility] Encounters Start Date/Time End Date/Time Encounter Type Admission Type Attending [facility] Care Facility Care Department Encounter ID Source 2023-08-28 13:15:00 2023-08-28 13:15:00 Outpatient R CORDELIA DOMINIQUE [facility] [id number] [facility] 2023-08-23 00:00:00 2023-08-23 13:06:54 Telephone Cordelia Dominique [employer] [facility] 1.2.840.114 350.1.13.10 4.2.7.2.686 [id number] [facility] 2023-08-10 00:00:00 2023-08-10 13:37:56 Abstract Cordelia Dominique [employer] [facility] 1.2.840.114 350.1.13.10 4.2.7.2.686 [id number] [facility] 2023-08-03 00:00:00 2023-08-03 16:57:15 Abstract Cordelia Dominique [employer] [facility] 1.2.840.114 350.1.13.10 4.2.7.2.686 [id number] [facility] 2023-08-03 15:30:00 2023-08-03 16:53:14 Outpatient P MAIA MILLER [facility] [id number] [facility] 2023-08-03 15:30:00 2023-08-03 16:53:14 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, Maia Lloyd [employer] [facility] & [facility]ILD [facility] 1..840.114 350.1.13.10 4.2.7.2.686 [id number] [facility] 2023-07-31 12:30:00 2023-07-31 12:55:52 Outpatient R CORDELIA DOMINIQUE [facility] [id number] [facility] 2023-07-31 12:30:00 2023-07-31 12:55:52 Routine Visit Cordelia Dominique [employer] [facility] 1..840.114 350.1.13.10 4.2.7.2.686 [id number] [facility] 2023-07-06 00:00:00 2023-07-06 13:21:40 Telephone Cordelia Dominique [employer] [facility] 1..840.114 350.1.13.10 4.2.7.2.686 [id number] [facility] 2023-07-03 13:45:00 2023-07-03 14:51:48 Outpatient R CORDELIA DOMINIQUE [facility] [id number] [facility] 2023-07-03 13:45:00 2023-07-03 14:51:48 Initial Visit Cordelia Dominique [employer] [facility] 1..840.114 350.1.13.10 4.2.7.2.686 [id number] [facility] 2023-06-27 08:30:00 2023-06-27 08:30:00 Outpatient R CORDELIA DOMINIQUE [facility] [id number] [facility] 2022-09-01 10:00:00 2022-09-01 10:00:00 Outpatient R CANDI BARRETT VINICIOCANDI PEÑA [facility] [id number] [facility] Results Test Description Test Time Test Comments Results Result Co mments Source [facility] W SPECIFIC [id number] 17:36:00* Test Item Value Reference Range Interpretation [...] POCT U APPEAR (test code = 3267) [facility] Urinalysis w/o Specific [id number] 18:38:00* Test Item Value Reference Range Interpretation [...] = 3257) neg Negative - Negati ve [facility] [id number] 18:38:00* Test Item Value Reference Range Interpretation Comme nts POCT PREG (test code = 1605) Positive On board controls acceptable with C Line (test code = 3574) Yes POCT PREG LOT # (test code = 3575) POCT PREG TEST DATE ( test code = 3576) [facility] Urinalysis w/o Specific [id number] 18:38:00* Test Item Value Reference Range Interpretation [...] = 3257) neg Negative - Negati ve [facility] [id number] 18:38:00* Test Item Value Reference Range Interpretation Comme nts POCT PREG (test code = 1605) Positive On board controls acceptable with C Line (test code = 3574) Yes POCT PREG LOT # (test code = 3575) POCT PREG TEST DATE ( test code = 3576) [facility] Notes Date/Time Note Provider Source 2023-08-23 13:20:07 3618-79-92D11:20:07F ormatting of this note might be different from the original.Pt notified medication sent to pharmacy and informed of recommendations, verbalized understanding. 71905-7Qxhhezaxd encounter MmnyBX9147-22-89A87:20:36Teleph one encounter NoteTXT1.2.840.028620.1.13.104. 2.7.2.576418|[id number] [facility] for patient nkid93117-2QicdORMWDZMWSNGMieqf tted C-CDA narrative [id number] Garcia [address] GymkEmwndenxsVveusougnZVEW54083 27893NTPCLALMTJKDJXVUUSKYFX9420 -07-03T13:20:361.2.840.803625.1 .72.3.15|1.2.840.277433.1.13.10 4.2.7.2.727879_[id number] Nova Krishnan MANAGER OF SOFTWARE DEVELOPMENT [facility] 2023-08-23 13:05:11 3084-89-46O34:05:11F ormatting of this note might be different from the original.Please advise patient that diclegis has been ordered to her pharmacy on file. Please advise her on small frequent meals/snacks, celeste ori/sprite, saltine crackers, if her symptoms get worse please advise her to follow up in the ED she may need iv hydrationJOE Garza 08/23/2023 1:06 PM 50369-2Utwoykaol encounter NlvhYT7583-56-82R86:06:54Teleph one encounter NoteTXT1.2.840.743643.1.13.104. 2.7.2.816795|[id number] ble for patient vfmb15933-2CkfbCYPDUQJUNCMPqzkd tted C-CDA narrative text[address] WczoXrgovrpmpXgsgzbdyvALYL52722 11898HMIQBCYEULXQBPFKXVZLBO6187 -07-03T13:06:541.2.840.709714.1 .72.3.15|1.2.840.602027.1.13.10 4.2.7.2.727879_[id number] [facility] 2023-08-23 10:29:38 8165-72-63H22:29:38F ormatting of this note might be different [...] with poc.Bianca Evans RN 08/23/23 10:37 AM 17494-3Xoqffntgi encounter TycmAM5840-81-78W69:37:45Teleph one encounter NoteTXT1.2.840.842888.1.13.104. 2.7.2.660712|[id number] ble for patient qonx25894-8TadbJYQRTJRPFPXVchry tted C-CDA narrative text[address] OdowRkihtfneqNltbzmlukPHQQ42804 20487JGHITZZRTFOOQWIWEORCSW3039 -07-03T10:37:451.2.840.146639.1 .72.3.15|1.2.840.710065.1.13.10 4.2.7.2.727879_[id number] [facility] 2023-08-23 10:20:23 2586-04-08K93:20:23F ormatting of this note might be different from the original.Harrison Iglesias is a 28 year old femalePt is still having vomiting and would like another medication to be called out. Pt stated the current med is not working and the vomiting is getting worse.[facility]/pharmacy #[id number] - [place], [place] - [address] [place] [address]Muvdh: [phone] Fzkyivfuxibnds signed by Frank Deng at 08/23/2023 10:22 AM EGH75483-7Yerijfwhr encounter LveoIJ0527-34-99Z99:22:06Teleph one encounter NoteTXT1.2.840.425177.1.13.104. 2.7.2.105276|[id number] ble for patient ndao19253-2HwpyJRIZRCQBIZTNxqlw tted C-CDA narrative [id number] P [address]TXTX[address] 45674XMPQJIFANVSAVCWHHYWDET7626 -07-03T10:22:061.2.840.848538.1 .72.3.15|1.2.840.955062.1.13.10 4.2.7.2.727879_[id number] Frank Deng [facility] 2023-07-06 13:39:14 5052-42-74S04:39:14F ormatting of this note might be different from the original.Called pt, notified of providers recommendations. Pt verbalized understanding.Bianca Evans RN 07/06/23 1:40 PM 76572-3Lcunphhxz encounter XaaqQR3154-81-42T81:40:32Teleph one encounter NoteTXT1.2.840.451381.1.13.104. 2.7.2.662398|[id number] ble for patient nuye35251-0AakmEVBMZHTMWELOnged tted C-CDA narrative text[address]TXTX[address] 10443QYCILDUSOSHLLGEYJVJJSW2486 -05-16T13:40:321.2.840.945898.1 .72.3.15|1.2.840.801357.1.13.10 4.2.7.2.727879_[id number] [facility] 2023-07-06 13:19:58 8588-28-74Z19:19:58F ormatting of this note might be different from the original.Please notify the patient no antibiotics are needed at this time, labs is less than 519961PuexxifsJOE Garza 07/06/2023 1:21 PM 54913-2Bjirgetna encounter RjxpAH9305-78-40G35:21:40Teleph one encounter NoteTXT1.2.840.123673.1.13.104. 2.7.2.496044|[id number] ble for patient flew60571-9VhliBXYFJJZLXQDGxben tted C-CDA narrative [address]TXTX[address]CQLXNEMFZQKVVDQAVMSMYG7381 -05-16T13:21:401.2.840.498184.1 .72.3.15|1.2.840.025271.1.13.10 4.2.7.2.727879_[id number] [facility] 2023-07-06 08:51:32 6836-89-97O37:51:32F ormatting of this note might be different from the original.Patient wanted to go over results from visit on 07/02. Informed will route to provider for results for urine culture to see if abt are needed. 40091-6Xdgoxfpcc encounter MzspTW1822-40-03A13:53:54Teleph one encounter NoteTXT1.2.840.674887.1.13.104. 2.7.2.116213|[id number] ble for patient pkgg23509-9MccjYISXTCLOGPFKelse tted C-CDA narrative oqyc084504179Plnajrle Garcia [address] 13586VYZWMITXBTVXWLOUZOWJHO7989 -05-16T08:53:541.2.840.537278.1 .72.3.15|1.2.840.707780.1.13.10 4.2.7.2.727879_[id number] Nova Krishnan LVN [facility] 2023-07-06 08:22:46 0272-56-57B28:22:46F ormatting of this note might be different from the original.Copied from [facility] #[id number]. Topic: Clinical - Medical Advice>> July 06, 2023 8:21 AM Patient Die Drawing Checker wrote:Pt is requesting call back to go over results, please call [phone] (home) 34721-8Bimanblns encounter LiejNR8668-48-17V53:23:45Teleph one encounter NoteTXT1.2.840.932417.1.13.104. 2.7.2.635700|[id number] ble for patient wupg66854-4PzctFXIRTCWXWCYUmiec tted C-CDA narrative bomm5883771CP [address] RsgrLqjyyfhqgFmrpaeqzwZEDX82[address] 459[address]BRHAKKLSSRUQOAQPNCOTAN0148 -05-16T08:23:451.2.840.400091.1 .72.3.15|1.2.840.930198.1.13.10 4.2.7.2.727879_[id number] HARRISON Osorio [facility]"
[2023-08-25] MEDS ORDERED: NA CHLORIDE 0.9% 2,000 ML ONE (12:31)
[2023-08-25] MEDS ORDERED: PROMETHAZINE INJ 25 MG/ML AMP ONE (12:31)
[2023-08-25 12:45] LABS: Absolute Eosinophils 0.1 K/uL (0-0.5); Absolute Lymphocytes (CBC) 2.3 K/uL (0.7-4.9); Absolute Monocytes 0.4 K/uL (0.1-1.3); Basophils % 0.3 % (0-1.3); Eosinophils % 0.9 % (0-4.4); Hematocrit 39.7 % (36.0-45.0); Hemoglobin 13.1 g/dL (12.0-15.0); Lymphocytes % 20.9 % (15.3-44.8); MCH 30.4 pg (27.0-35.0); MCHC 32.9 g/dL (32.0-36.0); MCV 92.4 fL (80-100); MPV 7.9 fL (7.6-11.3); Monocytes % 3.9 % (3.3-12.3); Platelets 279 thou/uL (152-406); Red Cell Distribution Width 12.7 % (12.1-15.2)
[2023-08-25 13:00] LABS: Albumin 3.5 g/dL (3.4-5.0); Albumin/Globulin Ratio 0.9 (1.1-1.8); Anion Gap 8.5 mEq/L (5.0-15.0); Bilirubin Total 0.6 mg/dL (0.2-1.0); Globulin 3.9 g/dL (2.3-3.5); Potassium 3.5 mEq/L (3.5-5.1); Protein, Total 7.4 g/dL (6.4-8.2)
[2023-08-25 14:45] LABS: Specific Gravity 1.026 (1.005-1.030); Urine Bacteria None Seen /HPF (<20); Urine Bilirubin NEGATIVE (Negative); Urine Blood Negative (Negative); Urine Clarity Extremely Turbid (Clear); Urine Color Yellow (Yellow); Urine Culture Reflex Order NOT NEEDED; Urine Glucose NEGATIVE (Negative); Urine Ketones 4+ (Over) (Negative); Urine Micro Reflex YN NO BILL MICROSCOPIC; Urine Mucus 4+ /HPF (None Seen); Urine Nitrite NEGATIVE (Negative); Urine Protein 1+ (Negative); Urine RBC <5 /HPF (None Seen); Urine Urobilinogen 1+ (Normal); Urine Yeast (Budding) Trace /HPF (None Seen)
--- NOTE | 2023-08-25 16:15 | EDPHYS ---
Physician Documentation [facility] Name: Melissa Iglesias Age: 28 yrs Sex: Female : 1995 Arrival Date: 08/25/2023 Time: 11:53 Bed 19 Private MD: ED Physician James Santillan HPI: 08/24 16:41 This 28 yrs old Female presents to ER via Ambulatory with complaints of Vomiting - rt Preg-13WKS. 16:41 Patient is 13 weeks presents to the ED with nausea, vomiting. States that she rt has been this way for the entirety of her , was unable to keep anything down for the past 3 days. Was seen in the ED yesterday, was prescribed promethazine suppositories but states that due to the diarrhea from the oral Phenergan, was unable to keep it down. Denies other acute complaints at this time, symptoms are moderate in severity, no other aggravating or alleviating factors.. Historical: - Allergies: 12:15 PENICILLINS; ll1 - PMHx: 12:15 Anemia; ll1 - PSHx: 12:15 None; ll1 - Immunization history:: Adult Immunizations up to date. - Infectious Disease History:: Denies. - Social history:: Smoking status: Patient denies any tobacco usage or history of. - Family history:: not pertinent. ROS: 16:41 Constitutional: Negative for fever, chills, and weight loss, Cardiovascular: Negative rt for chest pain, palpitations, and edema, Respiratory: Negative for shortness of breath, cough, wheezing, and pleuritic chest pain, MS/Extremity: Negative for injury and deformity, Skin: Negative for injury, rash, and discoloration, Neuro: Negative for headache, weakness, numbness, tingling, and seizure, 16:41 Abdomen/GI: Positive for nausea and vomiting, Exam: 16:41 Constitutional: This is a well developed, well nourished patient who is awake, alert, rt and in no acute distress. Head/Face: Normocephalic, atraumatic. Chest/axilla: Normal chest wall appearance and motion. Nontender with no deformity. No lesions are appreciated. Cardiovascular: Regular rate and rhythm with a normal S1 and S2. No gallops, murmurs, or rubs. Normal PMI, no JVD. No pulse deficits. Respiratory: Lungs have equal breath sounds bilaterally, clear to auscultation and percussion. No rales, rhonchi or wheezes noted. No increased work of breathing, no retractions or nasal flaring. Abdomen/GI: Soft, non-tender, with normal bowel sounds. No distension or tympany. No guarding or rebound. No evidence of tenderness throughout. Skin: Warm, dry with normal turgor. Normal color with no rashes, no lesions, and no evidence of cellulitis. MS/ Extremity: Pulses equal, no cyanosis. Neurovascular intact. Full, normal range of motion. Neuro: Awake and alert, GCS 15, oriented to person, place, time, and situation. Cranial nerves II-XII grossly intact. Motor strength 5/5 in all extremities. Sensory grossly intact. Cerebellar exam normal. Normal gait. 16:41 ENT: Dry mucous membranes. Vital Signs: 12:15 BP 110 / 61; Pulse 80; Resp 17; Temp 97.8; Pulse Ox 97% on R/A; Pain 0/10; rs5 16:20 BP 112 / 66; Pulse 77; Resp 17; Pulse Ox 99% on R/A; rs5 12:15 Pain Scale: Adult rs5 MDM: 12:20 Patient medically screened. rt 16:41 Differential diagnosis: Hyperemesis gravidarum. Data reviewed: vital signs, nurses rt notes, lab test result(s). Test considered but Not performed: Other Details Signs symptoms consistent with hyperemesis gravidarum, labs are benign, benign abdominal examination, CT scan is not indicated. Counseling: I had a detailed discussion with the patient and/or guardian regarding the historical points, exam findings, and any diagnostic results supporting the discharge/admit diagnosis, lab results, the need for outpatient follow up, to return to the emergency department if symptoms worsen or persist or if there are any questions or concerns that arise at home. Response to treatment: the patient's symptoms have markedly improved after treatment. 08/24 12:28 Order name: CMP; Complete Time: 13:25 rt 08/24 12:28 Order name: CBC with Diff; Complete Time: 13:25 rt 08/24 12:28 Order name: UAM; Complete Time: 14:58 rt Administered Medications: 12:32 Drug: NS 0.9% IV 2000 ml IV at 1 bolus Per protocol; 2000 mL bolus Route: IV; Rate: 1 rs5 bolus; Site: left antecubital; 13:01 Follow up: Response: No adverse reaction rs5 12:32 Drug: Promethazine IVP 12.5 mg IVP once Route: IVP; Site: left antecubital; rs5 13:01 Follow up: Response: No adverse reaction; Nausea is decreased rs5 Disposition Summary: 08/25/23 16:14 Discharge Ordered Notes: Location: Home rt Problem: an ongoing problem rt Symptoms: have improved rt Condition: Stable rt Diagnosis - Hyperemesis gravidarum rt Followup: rt - With: Private Physician - When: 2 - 3 days - Reason: Discharge Instructions: - Discharge Summary Sheet rt - Hyperemesis Gravidarum rt Forms: - Medication Reconciliation Form rt - Antibiotic Education rt - Prescription Opioid Use rt - Patient Portal Instructions rt - Leadership Thank You Letter rt Prescriptions: - ondansetron 4 mg Oral Tablet,disintegrating - take 1 tablet ORAL route every 6 hours As needed; 30 tablet; Refills: 0, rt Product Selection Permitted Signatures: Dispatcher [employer] Agnes Alvarez, RN RN ll1 James Santillan MD MD rt Александр Diaz RN RN rs5
--- NOTE | 2023-08-25 16:15 | ER ---
Nurse's Notes [facility] Name: Melissa Iglesias Age: 28 yrs Sex: Female : 1995 Arrival Date: 08/25/2023 Time: 11:53 Bed 19 Private MD: Diagnosis: Hyperemesis gravidarum Presentation: 08/24 12:15 Chief complaint: Patient states: N/V, fatigue, dizzy, weak for 3 days. G5, P4 about 13 ll1 weeks . Coronavirus screen: Client denies travel out of the [place] in the last 14 days. At this time, the client does not indicate any symptoms associated with coronavirus-19. Ebola Screen: Patient denies travel to an Ebola-affected area in the 21 days before illness onset. Initial Sepsis Screen: Does the patient meet any 2 criteria? No. Patient's initial sepsis screen is negative. Does the patient have a suspected source of infection? No. Patient's initial sepsis screen is negative. Risk Assessment: Do you want to hurt yourself or someone else? Patient reports no desire to harm self or others. Onset of symptoms was August 23, 2023. 12:15 Method Of Arrival: Ambulatory ll1 12:15 Acuity: RICH 3 ll1 Triage Assessment: 12:15 General: Appears uncomfortable, ill, Behavior is calm, cooperative, appropriate for ll1 age. Neuro: Reports dizziness, weakness. GI: Reports nausea, vomiting. Historical: - Allergies: 12:15 PENICILLINS; ll1 - PMHx: 12:15 Anemia; ll1 - PSHx: 12:15 None; ll1 - Immunization history:: Adult Immunizations up to date. - Infectious Disease History:: Denies. - Social history:: Smoking status: Patient denies any tobacco usage or history of. - Family history:: not pertinent. Screenin:06 [facility] ED Fall Risk Assessment (Adult) History of falling in the last 3 months, rs5 including since admission No falls in past 3 months (0 pts) Confusion or Disorientation No (0 pts) Intoxicated or Sedated No (0 pts) Impaired Gait No (0 pts) Mobility Assist Device Used No (0 pt) Altered Elimination No (0 pt) Score/Fall Risk Level 0 - 2 = Low Risk Oriented to surroundings, Maintained a safe environment. Abuse screen: Denies threats or abuse. Nutritional screening: No deficits noted. Tuberculosis screening: No symptoms or risk factors identified. Assessment: 12:06 General: Appears uncomfortable, Behavior is cooperative. Pain: Complains of pain in rs5 abdomen Pain currently is 5 out of 10 on a pain scale. Quality of pain is described as aching, Is continuous. Neuro: Level of Consciousness is awake, alert, obeys commands, Oriented to person, place, time, situation, Reports generalized weakness. 12:06 Cardiovascular: Patient's skin is warm and dry. Respiratory: Airway is patent rs5 Respiratory effort is even, unlabored, Respiratory pattern is regular, symmetrical. Respiratory:. GI: Abdomen is round non-distended, Reports diarrhea, nausea, vomiting. : No signs and/or symptoms were reported regarding the genitourinary system. EENT: No signs and/or symptoms were reported regarding the EENT system. Derm: Skin is intact, Skin is pink, warm \T\ dry. Musculoskeletal: Range of motion: intact in all extremities. 12:08 Reassessment: provider notified pt is experiencing pain . rs5 12:52 Reassessment: Patient and/or family updated on plan of care and expected duration. Pain rs5 level reassessed. Patient is alert, oriented x 3, equal unlabored respirations, skin warm/dry/pink. 14:01 Reassessment: Patient and/or family updated on plan of care and expected duration. Pain rs5 level reassessed. Patient is alert, oriented x 3, equal unlabored respirations, skin warm/dry/pink. Patient states feeling better. Patient states symptoms have improved. 15:05 Reassessment: No changes from previously documented assessment. rs5 16:18 Reassessment: Patient and/or family updated on plan of care and expected duration. Pain rs5 level reassessed. Patient is alert, oriented x 3, equal unlabored respirations, skin warm/dry/pink. Vital Signs: 12:15 BP 110 / 61; Pulse 80; Resp 17; Temp 97.8; Pulse Ox 97% on R/A; Pain 0/10; rs5 16:20 BP 112 / 66; Pulse 77; Resp 17; Pulse Ox 99% on R/A; rs5 12:15 Pain Scale: Adult rs5 ED Course: 12:01 Patient arrived in ED. mg5 12:06 Arm band placed on Patient placed in an exam room, on a stretcher. ll1 12:06 Patient has correct armband on for positive identification. Placed in gown. Bed in low rs5 position. Call light in reach. Side rails up X2. 12:08 Александр Diaz, RN is Primary Nurse. rs5 12:10 Inserted saline lock: 22 gauge in left antecubital area, using aseptic technique. Blood rs5 collected. 12:10 No provider procedures requiring assistance completed. rs5 12:16 Triage completed. ll1 12:17 James Santillan MD is Attending Physician. rt 15:41 Inserted saline lock: 22 gauge in right forearm, using aseptic technique. Flushed right as6 forearm. 16:30 IV discontinued, intact, bleeding controlled, No redness/swelling at site. Pressure rs5 dressing applied. Administered Medications: 12:32 Drug: NS 0.9% IV 2000 ml IV at 1 bolus Per protocol; 2000 mL bolus Route: IV; Rate: 1 rs5 bolus; Site: left antecubital; 13:01 Follow up: Response: No adverse reaction rs5 12:32 Drug: Promethazine IVP 12.5 mg IVP once Route: IVP; Site: left antecubital; rs5 13:01 Follow up: Response: No adverse reaction; Nausea is decreased rs5 Medication: 12:54 VIS not applicable for this client. rs5 Outcome: 16:14 Discharge ordered by MD. rt 16:30 Discharged to home ambulatory, rs5 16:30 Condition: stable rs5 16:30 Discharge instructions given to patient, family, Instructed on discharge instructions, follow up and referral plans. medication usage, Demonstrated understanding of instructions, follow-up care, medications, Prescriptions given X 1, 16:39 Patient left the ED. rs5 Signatures: Agnes John RN RN ll1 Barrie Berger RN RN as6 James Santillan MD MD rt Александр Diaz RN RN rs5 Soila Mcdonald mg5 Corrections: (The following items were deleted from the chart) 12:53 12:15 Pulse 80bpm; Resp 17bpm; Pulse Ox 97% RA; Temp 97.8F; Pain 0/10, Adult; ll1 rs5 17:06 16:08 BP 112 / 66; Pulse 77bpm; Resp 17bpm; Pulse Ox 99% RA; rs5 rs5
[2023-08-25 16:50] VITALS: BP 110/61; TEMP 97.8; O2SAT 97
== END 2023-08-25 16:39 | disposition home or self-care (01) ==
LOC: ER 11:53
DX: O21.0 Mild hyperemesis gravidarum (principal); Z3A.13 13 weeks gestation of pregnancy
CPT/HCPCS: 85025; 81001; 36415; 80053; 96374; 99284; J2550; J7030